=== PATIENT | male | born 1950 | race Caucasian/White ===

== ENCOUNTER 2022-10-12 14:36 | Outpatient (OUT) | payer MEDICARE, SELFPAY ==
[2022-10-06 09:31] LABS: Hemoglobin 14.2 g/dL (14.0-18.0)
[2022-10-06 09:38] LABS: HCO3 ABG 30.1 mmol/L (22.0-26.0); PO2 ABG 65.4 mmHg (80.0-100.0); pH ABG 7.396 (7.350-7.450)
[2022-10-06 09:39] LABS: Allen Test POSITIVE (POSITIVE); Base Excess ABG 5.2 mmol/L (-2.0-2.0); O2 Mode NC; Oxygen Saturation ABG 94.1 %
[2022-10-06 09:40] LABS: Liters per Minute 1; Puncture Site RR
[2022-10-06 11:13] VITALS: PULSE 86; O2SAT 94
[2022-10-06] MEDS: ALBUTEROL SULFATE 2.5 MG/3 ML VIAL NEB IH (11:13)
--- NOTE | 2022-10-06 12:00 | RT_ITS ---
[facility] Test Date: 2022-10-06 Pat Name: CALLI LOUIE Department: Room: - Gender: Male News Agent: Adin Sandy RRT : 1950 Requested By: Estiven Can Order Number: [id number] Reading MD: Estiven Can Interpretive Statements Pulmonary function testing was completed according to ATS criteria. Findings were not considered accurate and reproducible, including DLCO and FVC. Both pre- and post-bronchodilator values utilized for spirometry. No prior studies available for comparison. Spirometry (based on pre-bronchodilator values): -FEV1/FVC: Reduced @ 31% -FEV1: Very severely reduced @ 24% -FVC: Reduced @ 57% -There is no significant bronchodilator response. Lung volumes by plethysmography: -RV: Increased @ 313%, improved to 212% post-bronchodilator -TLC: Increased @ 143%, improved to 106% post-bronchodilator Diffusion capacity: -DLCO: Very severe reduction @ 36% when corrected for Hb 14.2g/dL Flow-volume loop: -Very severe obstructive pattern Impressions: -Very severe obstruction without bronchodilator response. Elevated RV suggests air trapping. Very severe diffusion impairment. Though patient did not meet ATS criteria, the overall testing would be compatible with very severe COPD/emphysema. Clinical correlation required. Electronically Signed On 10-09-2022 13:02:33 EDT by Estiven Can
--- NOTE | 2022-10-06 14:54 | RESP.RT ---
See scanned chart
--- NOTE | 2022-10-09 13:05 | W.PM.PROCNOT ---
Date of procedure: 10/09/22 Procedure: 6-Minute Walk Test Indication: Chronic hypoxic respiratory failure Baseline data: Initial blood pressure: 111/72 Initial heart rate: 87 Initial oxygenation: SpO2 94% on room air. Initial Moe score: 2 MMRC: 3 Procedure: A 6-Minute Walk Test was initiated according to standard protocol. The patient ambulated for a total of 2 minutes with the patient stopping to rest. SpO2 dropped to 87% on room air with a maximum heart rate of 104 and Moe score of 4. This walk test was stopped and after recovery, a second 6-Minute Walk Test was initiated on 1L/min supplemental O2 with SpO2 93%, with heart rate 99. The patient ambulated for 5 minutes and 14 seconds on 1L/min. It was stopped by the patient, voicing dyspnea. The maximum Moe score was 4. Symptoms reported: dyspnea. During recovery, blood pressure was 123/81 with a heart rate of 109. SpO2 was 96% on 1, with Moe score 2. Total number of stops: 3 stops reported. 2 during the study due to dyspnea, along with a 3rd prematurely 46 seconds prior to the end of 6 minutes. Total distance walked was 100.6m, which was 35% of predicted walk distance. Impressions: Desaturations with ambulation which recovered on 1L/min O2. Reduced walk distance. Easy fatigability, requiring frequent stops. Recommendations: 1L/min supplemental O2 with activity/ambulation. Clinical correlation required.
== END 2022-10-12 14:37 | disposition home or self-care (01) ==
LOC: CARD 14:37
PROVIDERS: PCP Family Medicine; Visit Provider Internal Medicine
DX: J96.12 Chronic respiratory failure with hypercapnia (principal); J96.11 Chronic respiratory failure with hypoxia; J43.2 Centrilobular emphysema; R94.2 Abnormal results of pulmonary function studies
CPT/HCPCS: 36415; 36600; 82805; 83050; 85018; 94060; 94618; 94726; 94729

== ENCOUNTER 2023-02-09 10:48 | Outpatient (OUT) | payer MEDICARE, SELFPAY ==
--- NOTE | 2023-02-09 10:58 | CT_ITS ---
[address] [address] Patient Name: CALLI LOUIE MRN: [id number] date: 1950 Sex: M Assigned Patient Location: CT Current Patient Location: Accession/Order Number: [id number] Exam Date: 02/09/2023 11:08 Report Date: 02/12/2023 07:51 At the request of: MANSOOR BLACKBURN Procedure: CT chest wo con EXAMINATION: CT chest wo con HISTORY: Abnormal CT Scan Of Lung R91.8 ; follow-up left lower lobe 1.3 cm nodule; chronic shortness of breath COMPARISON: CT chest 11/17/2022, CTA chest 06/12/2022 TECHNIQUE: Multi-planar CT images were obtained without and/or with IV contrast as indicated by examination type. Axial, Coronal, and Sagittal images. Dose reduction techniques were achieved by using automated exposure control and/or adjustment of mA and/or kV according to patient size and/or use of iterative reconstruction technique. FINDINGS: LUNGS: New small patchy infiltrate within posterior lateral right lung base. Interval increase in size of a geographic shaped opacity within left posterior costophrenic angle and change in configuration of several adjacent irregular opacities and resolution of a few smaller ones. PLEURA: No mass, effusion, or pneumothorax. VASCULATURE: No abnormality. JD: No mass or adenopathy. MEDIASTINUM: No mass or adenopathy. CARDIAC: No enlargement, pericardial thickening, or significant calcification. AORTA: No aneurysm or dissection. CHEST WALL: No mass or axillary adenopathy. BONES: Multilevel degenerative disc disease. No bone lesion or fracture. LIMITED ABDOMEN: No suspicious findings Limited images of the upper abdomen. OTHER: Negative. CT/CT chest wo con IMPRESSION: 1. Interval change in configuration of left lower lobe nodules, with increase in size of the largest opacity, some new opacities, and resolution of some smaller opacities. 2. Interval development of small infiltrate within lateral right lung base. 3. The changing appearance within the lung bases is nonspecific but favors infectious etiology over neoplasm. Follow-up CT chest without contrast in 1-2 months following treatment is recommended to document clearing. Alternatively, PET imaging could be performed to exclude malignancy. Electronically authenticated by: ERIK CARRION Date: 02/12/2023 07:51
== END 2023-02-09 10:49 | disposition home or self-care (01) ==
LOC: CT 10:49
PROVIDERS: PCP Family Medicine; Visit Provider Internal Medicine
DX: R91.8 Other nonspecific abnormal finding of lung field (principal)
CPT/HCPCS: 71250

== ENCOUNTER 2023-02-23 14:46 | Outpatient (OUT) | payer MEDICARE, SELFPAY ==
--- NOTE | 2023-02-23 14:52 | PE_ITS ---
The [address] [address] Patient Name: CALLI LOUIE MRN: [id number] date: 1950 Sex: M Assigned Patient Location: PETCT Current Patient Location: PETCT Accession/Order Number: [id number] Exam Date: 02/23/2023 15:55 Report Date: 02/25/2023 16:46 At the request of: MANSOOR BLACKBURN Procedure: PET skull to mid thigh PET/CT: HISTORY: Lung nodules. COMPARISON: CT chest 02/09/2023, 11/17/2022, 06/12/2022. TECHNIQUE: The patient was injected with 11.76 mCi of F-18 fluorodeoxyglucose (FDG), and an emission scan was performed from the base of the skull to the mid thigh. Noncontrast CT was performed for attenuation correction and anatomic localization. The blood glucose level was 118 mg/dl. The uptake time was 49 minutes. The SUVmax of the mediastinum is 2.3. FINDINGS: HEAD AND NECK: There is a physiologic distribution of activity, with no hypermetabolic foci. CHEST: Previously noted 2.7 cm opacity at the left lung base posteriorly shows minimal tracer activity with SUV max 1.7. Adjacent areas of consolidation are also noted and appear non tracer avid and stable. There is no hypermetabolic mediastinal or hilar adenopathy. ABDOMEN AND PELVIS: There is a physiologic distribution of activity within the liver, spleen, adrenal glands, urinary tract and bowel, with no hypermetabolic foci. MUSCULOSKELETAL SYSTEM: There is a physiologic distribution of activity within the bone marrow, with no hypermetabolic foci. ADDITIONAL CT FINDINGS: There is moderate atherosclerotic calcification of the thoracoabdominal aorta, iliac and femoral arteries. There is mild to moderate emphysema. There are multiple diverticula in the sigmoid colon with no acute diverticulitis. The prostate gland is enlarged at 5 x 4.3 cm. There are moderate to severe multilevel degenerative changes of the spine. PET/PET skull to mid thigh IMPRESSION: 1. Irregular opacity in the posterior left lung base shows only mild tracer activity . There are adjacent stable non tracer avid foci of consolidation. This is likely benign in nature such as due to resolving pneumonia, atelectasis and/or scarring. Consider follow-up chest CT in [address] findings as described above. Electronically authenticated by: ERIK RESTREPO Date: 02/25/2023 16:46
== END 2023-02-23 14:47 | disposition home or self-care (01) ==
LOC: PETCT 14:46
PROVIDERS: PCP Family Medicine; Visit Provider Internal Medicine
DX: R91.8 Other nonspecific abnormal finding of lung field (principal)
CPT/HCPCS: 78815; A9552

== ENCOUNTER 2023-06-08 10:05 | Outpatient (OUT) | payer MEDICARE, SELFPAY ==
--- OUTSIDE RECORDS SUMMARY | 2023-06-08 10:18 | XMS_ITS | CCD ---
Author Organization [facility] Care Team Providers Care Care Manager Name Role Phone DR EBER LIM Primary Care Unavailable ADARSH JUNIOR Admitting Unavailable ADARSH JUNIOR Attending Unavailable MURALI, DR ERIK Price Consulting Unavailable ADARSH JUNIOR Consulting Unavailable CARINA, DR IQBAL Primary Care Unavailable LALIT ., DR PAYNE Admitting Unavailable LALIT ., DR PAYNE Attending Unavailable LALIT ., DR PAYNE Consulting Unavailable ALLAECK, DR ALEX Gann Consulting Unavailabl e MURALI, DR ERIK Price Consulting Unavailable SAM ., MAN[place]OR Consulting Unavailable CUONG YOST Consulting Unavailable SHAIKH Aurea ESCOBAR Consulting Unavailable MARCO HO Consulting Unavailable Eber Lim Unavailable DO JANEL NEVILLE Attending UnavailDr. Eber Felder Primary Care Unavaila ble DO JANEL NEVILLE Attending Unavailab Dr. Eber King Primary Care Unavaila ble Problems Problem Classification Problem Date Documented Da te Episodic/Chronic Anxiety disorders (1 source) Generalized anxiety disorder; Translations: [GENERALIZED ANXIETY DISORDER] Onset: 06-29-2022 Chronic Chronic obstructive pulmonary disease and bronchiectasis (8 sources) Centrilobular emphysema; Translations: [Pulmonary emphysema] Onset: 06-29-2022 Chronic Coronary atherosclerosis and other heart disease (1 source) Atherosclerotic heart disease of [place] coronary artery without angina pectoris; Translations: [Athscl heart disease of [place] coronary artery w/o ang pctrs] Onset: 11-17-2022 Chronic Essential hypertension (1 source) Essential (primary) hypertension; Translations: [ESSENTIAL PRIMARY HYPERTENSION] Onset: 06-29-2022 Chronic Headache; including migraine (1 source) Headache; including migraine; Translations: [HEADACHE UNSPECIFIED] Onset: 06-29-2022 Nonspecific chest pain (4 sources) Chest pain, unspecified; Translations: [Other chest pain] Onset: 07-10-2022 Episodic Other aftercare (1 source) Other alf (current) drug therapy; Translations: [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] Onset: 07-11-2022 Episodic Other gastrointestinal disorders (1 source) Constipation, unspecified; Translations: [CONSTIPATION UNSPECIFIED] Onset: 06-29-2022 Episodic Other lower respiratory disease (1 source) Other nonspecific abnormal finding of lung field; Translations: [Other nonspecific abnormal finding of lung field] Onset: 11-17-2022 Episodic Other nervous system disorders (1 source) Anesthesia of skin; Translations: [ANESTHESIA OF SKIN] Onset: 06-29-2022 Episodic Other screening for suspected conditions (not mental disorders or infectious disease) (1 source) Other specified abnormal findings of blood chemistry; Translations: [OTH SPEC ABNORMAL FINDINGS BLD CHEM] Onset: 06-29-2022 Episodic Other upper respiratory disease (1 source) Chronic rhinitis; Translations: [CHRONIC RHINITIS] Onset: 06-29-2022 Chronic Pulmonary heart disease (1 source) Pulmonary hypertension, unspecified; Translations: [PULMONARY HYPERTENSION UNSPECIFIED] Onset: 06-29-2022 Chronic Residual codes; unclassified (1 source) Insomnia, unspecified; Translations: [INSOMNIA UNSPECIFIED] Onset: 06-29-2022 Episodic Respiratory failure; insufficiency; arrest (adult) (1 source) Chronic respiratory failure with hypercapnia; Translations: [CHRONIC RESP FAIL W/HYPERCAPNIA] Onset: 06-29-2022 Chronic Respiratory failure; insufficiency; arrest (adult) (3 sources) Acute respiratory failure with hypoxia; Translations: [ACUTE RESPIRATORY FAIL W/HYPOXIA] Onset: 06-12-2022 Episodic Substance-related disorders (1 source) Nicotine dependence, cigarettes, uncomplicated; Translations: [NICOTINE DEPEND CIGARETTES UNCOMP] Onset: 07-11-2022 Chronic Unclassified (1 source) OTHER ACIDOSIS; Translations: [OTHER ACIDOSIS] Onset: 06-29-2022 Unclassified (1 source) CONTACT W/AND (SUSP) EXPOS COVID-19; Translations: [CONTACT W/AND (SUSP) EXPOS COVID-19] Onset: 06-29-2022 Unclassified (1 source) Other specified disease of esophagus; Translations: [Other specified disease of esophagus] Onset: 11-17-2022 Unclassified (1 source) Gastro-esophageal reflux dis with esophagitis, without bleed; Translations: [Gastro-esophageal reflux dis with esophagitis, without bleed] Onset: 11-17-2022 Viral infection (1 source) Zoster without complications; Translations: [ZOSTER WITHOUT COMPLICATIONS] Onset: 06-29-2022 Episodic Results Test Name Value Interpretation Reference Range Facility ARTERIAL BLOOD GAS,CO-OXon 0 11-17-2022 BASE EXCESS-BLOOD 4.2 mmol/L High -2.0 - 3.0 [facility] Comment on above: Performed By: #### A BGC2 #### [facility] [address] [place] [address] BICARB, CALCULATED 29.2 mmol/L High 22.0 - 26.0 [facility] Comment on above: Performed By: #### A BGC2 #### [facility] [address] [place] [address] CO HGB 1.7 % Abnormal [facility] Comment on above: Result Comment: REF VALUES NONSMOKERS 0.5-1.5% SMOKERS 0.5-10.0% Performed By: #### A BGC2 #### [facility] [address] [place] [address] DEOXY HGB 2.7 % Normal 0.0 - 5.0 [facility] Comment on above: Performed By: #### A BGC2 #### [facility] [address] [place] [address] Hemoglobin (Bld) [Mass/Vol] 14.3 g/dL Normal 13.5 - 17.5 [facility] Comment on above: Performed By: #### A BGC2 #### [facility] [address] [place] [address] MET HGB 1.0 % Normal 0.0 - 1.5 [facility] Comment on above: Performed By: #### A BGC2 #### [facility] [address] [place] [address] OXY HGB 94.6 % Normal 94.0 - 98.0 [facility] Comment on above: Performed By: #### A BGC2 #### [facility] [address] [place] [address] Oxygen (Bld) [Partial pressure] 74 mm[Hg] Low 85 - 95 [facility] Comment on above: Performed By: #### A BGC2 #### [facility] [address] [place] [address] PATIENT TEMPERATURE 37.0 degrees C Normal [facility] Comment on above: Result Comment: NOTE : PATIENT RESULTS ARE NOT CORRECTED FOR TEMPERATURE. Performed By: #### A BGC2 #### [facility] [address] [place] [address] PCO2 44 mmHg High 38 - 42 [facility] Comment on above: Performed By: #### A BGC2 #### [facility] [address] [place] [address] pH (Bld) 7.43 [pH] High 7.38 - 7.42 [facility] Comment on above: Performed By: #### A BGC2 #### [facility] [address] [place] [address] SO2 97 % Normal 94 - 100 [facility] Comment on above: Performed By: #### A BGC2 #### [facility] [address] [place] [address] CT Chest without for Brown Br onc Planningon 11-17-2022 CT Chest without for Brown Bronc Planning Normal [email or web address] Work Phone: Laboratory - Chemistry and C hemistry - challengeon 11-17-2022 Base excess Calc (Bld) [Moles/Vol] 4.2 mmol/L above high threshold -2.0 - 3.0 [facility] Work Phone: Carboxyhemoglobin (BldA) [Mass fraction] 1.7 % Abnormal [facility] Work Phone: Comment on above: REF VALUESNONSMOKERS 0.5-1.5%SMOKERS 0.5-10.0% CO2 (Bld) [Partial pressure] 44 mm[Hg] above high threshold 38 - 42 [facility] [facility] Work Phone: HCO3 (Bld) [Moles/Vol] 29.2 mmol/L above high threshold See Below [facility] Work Phone: Comment on above: Reference Range: 22. 0 - 26.0 Methemoglobin (BldA) [Mass fraction] 1.0 % 0.0 - 1.5 [facility] Work Phone: Oxygen (Bld) [Partial pressure] 74 mm[Hg] below low threshold 85 - 95 [facility] Work Phone: Oxyhemoglobin (BldA) [Mass fraction] 94.6 % See Below [facility] Work Phone: Comment on above: Reference Range: 94. 0 - 98.0 pH (Bld) 7.43 [pH] above high threshold See Below [facility] Work Phone: Comment on above: Reference Range: 7.3 8 - 7.42 Laboratory - Hematology and Cell countson 11-17-2022 Deoxyhemoglobin (BldA) [Mass fraction] 2.7 % 0.0 - 5.0 [email or web address] Work Phone: Hemoglobin (Bld) [Mass/Vol] 14.3 g/dL See Below [facility] Work Phone: Comment on above: Reference Range: 13. 5 - 17.[address] CHEST without FOR BROWN BRONC PLANNINGon 11-17-2022 CT CHEST without FOR BROWN BRONC PLANNING Patient Name: CALLI LOUIE STUDY: TH CT CHEST WITHOUT FOR BROWN BRONC PLANNING; 11/17/2022 1:08 pm INDICATION: BLVR J43.9: COPD (chronic obstructive pulmonary disease) with emphysema. COMPARISON: None. ACCESSION NUMBER(S): [id number] ORDERING CLINICIAN: JANEL NEVILLE TECHNIQUE: Helical data acquisition of the chest was obtained without IV contrast material. Images were reformatted in axial, coronal, and sagittal planes. FINDINGS: LUNGS AND AIRWAYS: Secretions within the left posterolateral aspect of the trachea. The trachea and central airways are otherwise patent. No endobronchial lesion. Mild bronchial wall thickening throughout the lungs, which may represent a component of chronic bronchitis, in setting of smoking history. Severe apical predominant emphysema. Multiple areas of nodularity to include tree-in-bud nodularity within the left lower lobe. The largest nodule is noted to be along the posterior left diaphragmatic pleura and measures 1.3 cm (series 3, image 256). MEDIASTINUM AND JD, LOWER NECK AND AXILLA: The visualized thyroid gland is within normal limits. No evidence of thoracic lymphadenopathy by CT criteria. Circumferential wall thickening of the distal esophagus. HEART AND VESSELS: Thoracic aorta is normal in course and caliber. Mild calcifications of the descending aorta and aortic arch. Main pulmonary artery and its branches are normal in caliber. Mild coronary artery calcifications are seen. The study is not optimized for evaluation of coronary arteries. The cardiac chambers are not enlarged. No evidence of pericardial effusion. UPPER ABDOMEN: The visualized subdiaphragmatic structures demonstrate no remarkable findings. CHEST WALL AND OSSEOUS STRUCTURES: There are no suspicious osseous lesions. Multilevel degenerative changes are present. IMPRESSION: 1. Areas of tree-in-bud nodularity as well as larger, clustered pleural-based nodules within the left lower lobe. Consider sequelae of aspiration or infection, however neoplastic process is not excluded. Consider PET/CT or follow-up chest CT in 3 months to re-evaluate these findings. 2. Severe diffuse emphysema. 3. Circumferential wall thickening of the distal esophagus. Correlate with clinical findings of esophagitis/gastroeso phageal reflux. 4. Atherosclerosis to include mild coronary artery calcifications. Please note that, the present study is not tailored for evaluation of coronary arteries. Critical Finding: New/enlarging lung nodule suspicious for cancer. Notification was initiated on 11/17/2022 at 4:15 pm by Eyad Au. (-YCF-) MACRO: None Electronically signed by: KRISTOPHER ESPINO MD Normal [facility] CBC AUTO DIFFon 07-10-2022 BASO # 0.0 103/ul Normal 0.0-0.1 [facility] Comment on above: Performed By: #### P OCGLUC #### [facility] [address] [address] [address] Luis Carlos Fletcher Basophils/100 WBC (Bld) 0.8 % Normal 0.2-2.0 [facility] Comment on above: Performed By: #### P OCGLUC #### [facility] [address] [address] [address] Luis Carlos Fletcher EO # 0.2 103/ul Normal 0.0-0.7 [facility] Comment on above: Performed By: #### P OCGLUC #### [facility] [address] [address] [address] Luis Carlos Fletcher Eosinophils/100 WBC (Bld) 3.4 % Normal 0.9-7.0 [facility] Comment on above: Performed By: #### P OCGLUC #### [facility] [address] [address] [address] Luis Carlos Fletcher Erythrocyte distribution width (RBC) [Ratio] 13.2 % Normal 11.0-15.0 [facility] Comment on above: Performed By: #### P OCGLUC #### [facility] [address] [address] [address] Luis Carlos Fletcher Hematocrit (Bld) [Volume fraction] 45.6 % Normal 42.0-54.0 [facility] Comment on above: Performed By: #### P OCGLUC #### [facility] [address] [address] [address] Luis Carlos Fletcher Hemoglobin (Bld) [Mass/Vol] 14.9 g/dL Normal 14.0-18.0 [facility] Comment on above: Performed By: #### P OCGLUC #### [facility] [address] [address] [address] Luis Carlos Fletcher IG # 0.06 10e3/ul Critically high 0.00-0.[address] [facility] Comment on above: Performed By: #### P OCGLUC #### [facility] [address] [address] [address] Luis Carlos Fletcher IG % 1.2 % Critically high 0.0-0.5 [facility] Comment on above: Performed By: #### P OCGLUC #### [facility] [address] [address] [address] Luis Carlos Fletcher LYMPH # 1.3 103/ul Normal 1.2-3.8 [facility] Comment on above: Performed By: #### P OCGLUC #### [facility] [address] [address] [address] Luis Carlos Fletcher Lymphocytes/100 WBC (Bld) 24.9 % Normal 20.5-60.0 [facility] Comment on above: Performed By: #### P OCGLUC #### [facility] [address] [address] [address] Luis Carlos Fletcher MANUAL DIFF REQ NO Normal [facility] Comment on above: Performed By: #### P OCGLUC #### [facility] [address] [address] [address] Luis Carlos Fletcher MCH (RBC) [Entitic mass] 30.2 pg Normal 25.9-34.0 [facility] Comment on above: Performed By: #### P OCGLUC #### [facility] [address] [place] [address] Dr. Luis Carlos Fletcher MCHC (RBC) [Mass/Vol] 32.7 g/dL Normal 29.9-35.2 [facility] Comment on above: Performed By: #### P OCGLUC #### [facility] [address] [place] [address] Dr. Luis Carlos Fletcher MCV (RBC) [Entitic vol] 92.5 fL Normal 80.0-94.0 [facility] Comment on above: Performed By: #### P OCGLUC #### [facility] [address] [place] [address] Dr. Luis Carlos Fletcher MONO # 0.5 103/ul Normal 0.3-0.8 [facility] Comment on above: Performed By: #### P OCGLUC #### [facility] [address] [address] [address] Luis Carlos Fletcher Monocytes/100 WBC (Bld) 9.2 % Normal 1.7-12.0 [facility] Comment on above: Performed By: #### P OCGLUC #### [facility] [address] [place] [address] Dr. Luis Carlos Fletcher NEUT # 3.0 103/ul Normal 1.4-6.5 [facility] Comment on above: Performed By: #### P OCGLUC #### [facility] [address] [address] [address] Luis Carlos Fletcher Neutrophils/100 WBC (Bld) 60.5 % Normal 43.0-75.0 [facility] Comment on above: Performed By: #### P OCGLUC #### [facility] [address] [address] [address] Luis Carlos Fletcher Platelet mean volume (Bld) [Entitic vol] 9.6 fL Normal 9.5-13.5 [facility] Comment on above: Performed By: #### P OCGLUC #### [facility] [address] [address] [address] Luis Carlos Fletcher PLT 153 103/ul Normal 150-450 [facility] Comment on above: Performed By: #### P OCGLUC #### [facility] [address] [address] [address] Luis Carlos Fletcher RBC 4.93 106/ul Normal 4.70-6.10 [facility] Comment on above: Performed By: #### P OCGLUC #### [facility] [address] [address] [address] Luis Carlos Fletcher WBC 5.0 103/ul Normal 4.0-11.0 [facility] Comment on above: Performed By: #### P OCGLUC #### [facility] [address] [address] [address] Luis Carlos Fletcher PROF CHEM 8 (BAS METB)on Anion gap [Moles/Vol] 6.1 mmol/L Normal [facility] Comment on above: Performed By: #### H STROPN #### [facility] [address] [address] [address] Luis Carlos Fletcher Calcium [Mass/Vol] 8.9 mg/dL Normal 8.5-10.1 [facility] Comment on above: Performed By: #### H STROPN #### [facility] [address] [address] [address] Luis Carlos Fletcher Chloride [Moles/Vol] 100 mmol/L Normal 98-107 [facility] Comment on above: Performed By: #### H STROPN #### [facility] [address] [address] [address] Luis Carlos Fletcher CO2 [Moles/Vol] 35.6 mmol/L Critically high 21.0-32.0 [facility] Comment on above: Performed By: #### H STROPN #### [facility] [address] [address] [address] Luis Carlos Fletcher Creatinine [Mass/Vol] 0.71 mg/dL Normal 0.70-1.30 [facility] Comment on above: Performed By: #### H STROPN #### [facility] [address] [address] [address] Luis Carlos Fletcher EGFR-AF MAURITIAN >60 Normal >=60 [facility] Comment on above: Performed By: #### H STROPN #### [facility] [address] [address] [address] Luis Carlos Fletcher EGFR-NON AF MAURITIAN >60 Normal >=60 [facility] Comment on above: Performed By: #### H STROPN #### [facility] [address] [address] [address] Luis Carlos Fletcher Glucose [Mass/Vol] 63 mg/dL Critically low 74-106 [facility] Comment on above: Performed By: #### H STROPN #### [facility] [address] [address] [address] Luis Carlos Fletcher Potassium [Moles/Vol] 4.7 mmol/L Normal 3.5-5.1 [facility] Comment on above: Performed By: #### H STROPN #### [facility] [address] [address] [address] Luis Carlos Fletcher Sodium [Moles/Vol] 137 mmol/L Normal 136-145 [facility] Comment on above: Performed By: #### H STROPN #### [facility] [address] [address] [address] Luis Carlos Fletcher Urea nitrogen [Mass/Vol] 11.0 mg/dL Normal 7.0-18.0 [facility] Comment on above: Performed By: #### H STROPN #### [facility] [address] [address] [address] Luis Carlos Fletcher Urea nitrogen/Creatinine [Mass ratio] 15.5 mg/mg Normal [facility] Comment on above: Performed By: #### H STROPN #### [facility] [address] [address] [address] Luis Carlos Fletcher TROPONIN, HIGH SENSITIVITYon 07-10-2022 HSTROP 6.1 pg/mL Normal 4.0-76.1 [facility] Comment on above: Result Comment: CUT- OFF POINTS HAVE BEEN ESTABLISHED BASED ON THE FOURTH UNIVERSAL DEFINITIONS OF MYOCARDIAL INFARCTION. THE UPPER REFERENCE LIMIT (URL) OF TROPONIN, DEFINED THE 99TH PERCENTILE OF cTnI DISTRIBUTION IN A REFERENCE POPULATION, HAS BEEN CONFIRMED THE DECISION THRESHOLD FOR OR DIAGNOSIS. Performed By: #### H STROPN #### [facility] [address] [place] [address] Dr. Luis Carlos Fletcher HSTROP 6.1 pg/mL Normal 4.0-76.1 [facility] Comment on above: Result Comment: CUT- OFF POINTS HAVE BEEN ESTABLISHED BASED ON THE FOURTH UNIVERSAL DEFINITIONS OF MYOCARDIAL INFARCTION. THE UPPER REFERENCE LIMIT (URL) OF TROPONIN, DEFINED THE 99TH PERCENTILE OF cTnI DISTRIBUTION IN A REFERENCE POPULATION, HAS BEEN CONFIRMED THE DECISION THRESHOLD FOR OR DIAGNOSIS. Performed By: #### H STROPN #### [facility] [address] [place] [address] Dr. Luis Carlos Fletcher XR CHEST 1 Von 07-10-2022 XR CHEST 1 V EXAMINATION: XR CHES T 1 V HISTORY: CHEST PAIN, UNSPECIFIED COMPARISON: XR chest 06/15/2022 FINDINGS: LUNGS: No significant pulmonary parenchymal abnormalities. VASCULATURE: No increased pulmonary vasculature. PLEURA: No pneumothorax, effusion, or pleural thickening. CARDIAC: No cardiomegaly or cardiac silhouette abnormality. MEDIASTINUM: No visible mass or adenopathy. BONES: No fracture or visible bone lesion. OTHER: Negative. IMPRESSION: 1. No acute cardiopulmonary process. Stable mild chronic interstitial changes. Electronically authenticated by: ERIK CARRION Date: 2022-07-10 12:39 Normal [facility] CBC AUTO DIFFon 06-19-2022 BASO # 0.0 103/ul Normal 0.0-0.1 [facility] Comment on above: Performed By: #### P OCGLUC #### [facility] [address] [place] [address] Dr. Luis Carlos Fletcher Basophils/100 WBC (Bld) 0.2 % Normal 0.2-2.0 [facility] Comment on above: Performed By: #### P OCGLUC #### [facility] [address] [place] [address] Dr. Luis Carlos Fletcher EO # 0.0 103/ul Normal 0.0-0.7 [facility] Comment on above: Performed By: #### P OCGLUC #### [facility] [address] [place] [address] Dr. Luis Carlos Fletcher Eosinophils/100 WBC (Bld) 0.0 % Critically low 0.9-7.0 [facility] Comment on above: Performed By: #### P OCGLUC #### [facility] [address] [place] [address] Dr. Luis Carlos Fletcher Erythrocyte distribution width (RBC) [Ratio] 12.9 % Normal 11.0-15.0 [facility] Comment on above: Performed By: #### P OCGLUC #### [facility] [address] [place] [address] Dr. Luis Carlos Fletcher Hematocrit (Bld) [Volume fraction] 45.1 % Normal 42.0-54.0 [facility] Comment on above: Performed By: #### P OCGLUC #### [facility] [address] [place] [address] Dr. Luis Carlos Fletcher Hemoglobin (Bld) [Mass/Vol] 14.7 g/dL Normal 14.0-18.0 [facility] Comment on above: Performed By: #### P OCGLUC #### [facility] [address] [place] [address] Dr. Luis Carlos Fletcher IG # 0.08 10e3/ul Critically high 0.00-0.[address] [facility] Comment on above: Performed By: #### P OCGLUC #### [facility] [address] [place] [address] Dr. Luis Carlos Fletcher IG % 0.8 % Critically high 0.0-0.5 [facility] Comment on above: Performed By: #### P OCGLUC #### [facility] [address] [place] [address] Dr. Luis Carlos Fletcher LYMPH # 0.4 103/ul Critically low 1.2-3.[address] [facility] Comment on above: Performed By: #### P OCGLUC #### [facility] [address] [place] [address] Dr. Luis Carlos Fletcher Lymphocytes/100 WBC (Bld) 4.0 % Critically low 20.5-60.0 [facility] Comment on above: Performed By: #### P OCGLUC #### [facility] [address] [place] [address] Dr. Luis Carlos Fletcher MANUAL DIFF REQ NO Normal [facility] Comment on above: Performed By: #### P OCGLUC #### [facility] [address] [place] [address] Dr. Luis Carlos Fletcher MCH (RBC) [Entitic mass] 30.3 pg Normal 25.9-34.0 [facility] Comment on above: Performed By: #### P OCGLUC #### [facility] [address] [place] [address] Dr. Luis Carlos Fletcher MCHC (RBC) [Mass/Vol] 32.6 g/dL Normal 29.9-35.2 [facility] Comment on above: Performed By: #### P OCGLUC #### [facility] [address] [place] [address] Dr. Luis Carlos Fletcher MCV (RBC) [Entitic vol] 93.0 fL Normal 80.0-94.0 [facility] Comment on above: Performed By: #### P OCGLUC #### [facility] [facility] [address] [place] [address] Dr. Luis Carlos Fletcher MONO # 0.3 103/ul Normal 0.3-0.8 [facility] Comment on above: Performed By: #### P OCGLUC #### [facility] [address] [place] [address] Dr. Luis Carlos Fletcher Monocytes/100 WBC (Bld) 3.4 % Normal 1.7-12.0 [facility] Comment on above: Performed By: #### P OCGLUC #### [facility] [address] [address] [address] Luis Carlos Fletcher NEUT # 9.2 103/ul Critically high 1.4-6.5 [facility] Comment on above: Performed By: #### P OCGLUC #### [facility] [address] [address] [address] Luis Carlos Fletcher Neutrophils/100 WBC (Bld) 91.6 % Critically high 43.0-75.0 [facility] Comment on above: Performed By: #### P OCGLUC #### [facility] [address] [place] [address] Dr. Luis Carlos Fletcher Platelet mean volume (Bld) [Entitic vol] 9.9 fL Normal 9.5-13.5 [facility] Comment on above: Performed By: #### P OCGLUC #### [facility] [address] [place] [address] Dr. Luis Carlos Fletcher PLT 220 103/ul Normal 150-450 [facility] Comment on above: Performed By: #### P OCGLUC #### [facility] [address] [place] [address] Dr. Luis Carlos Fletcher RBC 4.85 106/ul Normal 4.70-6.10 [facility] Comment on above: Performed By: #### P OCGLUC #### [facility] [address] [place] [address] Dr. Luis Carlos Fletcher WBC 10.0 103/ul Normal 4.0-11.0 [facility] Comment on above: Performed By: #### P OCGLUC #### [facility] [address] [place] [address] Dr. Luis Carlos Fletcher PROF CHEM 8 (BAS METB)on Anion gap [Moles/Vol] 2.4 mmol/L Normal [facility] Comment on above: Performed By: #### P OCGLUC #### [facility] [address] [place] [address] Dr. Luis Carlos Fletcher Calcium [Mass/Vol] 8.2 mg/dL Critically low 8.5-10.1 [facility] Comment on above: Performed By: #### P OCGLUC #### [facility] [address] [address] [address] Luis Carlos Fletcher Chloride [Moles/Vol] 104 mmol/L Normal 98-107 [facility] Comment on above: Performed By: #### P OCGLUC #### [facility] [address] [address] [address] Luis Carlos Fletcher CO2 [Moles/Vol] 35.4 mmol/L Critically high 21.0-32.0 [facility] Comment on above: Performed By: #### P OCGLUC #### [facility] [address] [place] [address] Dr. Luis Carlos Fletcher Creatinine [Mass/Vol] 0.57 mg/dL Critically low 0.70-1.30 [facility] Comment on above: Performed By: #### P OCGLUC #### [facility] [address] [place] [address] Dr. Luis Carlos Fletcher EGFR-AF MAURITIAN >60 Normal >=60 [facility] Comment on above: Performed By: #### P OCGLUC #### [facility] [address] [place] [address] Dr. Luis Carlos Fletcher EGFR-NON AF MAURITIAN >60 Normal >=60 [facility] Comment on above: Performed By: #### P OCGLUC #### [facility] [address] [place] [address] Dr. Luis Carlos Fletcher Glucose [Mass/Vol] 127 mg/dL Critically high 74-106 [facility] Comment on above: Performed By: #### P OCGLUC #### [facility] [address] [place] [address] Dr. Luis Carlos Fletcher Potassium [Moles/Vol] 4.8 mmol/L Normal 3.5-5.1 [facility] Comment on above: Performed By: #### P OCGLUC #### [facility] [address] [place] [address] Dr. Luis Carlos Fletcher Sodium [Moles/Vol] 137 mmol/L Normal 136-145 [facility] Comment on above: Performed By: #### P OCGLUC #### [facility] [address] [place] [address] Dr. Luis Carlos Fletcher Urea nitrogen [Mass/Vol] 25.0 mg/dL Critically high 7.0-18.0 [facility] Comment on above: Performed By: #### P OCGLUC #### [facility] [address] [place] [address] Dr. Luis Carlos Fletcher Urea nitrogen/Creatinine [Mass ratio] 43.9 mg/mg Normal [facility] Comment on above: Performed By: #### P OCGLUC #### [facility] [address] [place] [address] Dr. Luis Carlos Fletcher CBC AUTO DIFFon 06-18-2022 BASO # 0.0 103/ul Normal 0.0-0.1 [facility] Comment on above: Performed By: #### P OCGLUC #### [facility] [address] [place] [address] Dr. Luis Carlos Fletcher Basophils/100 WBC (Bld) 0.2 % Normal 0.2-2.0 [facility] Comment on above: Performed By: #### P OCGLUC #### [facility] [address] [place] [address] Dr. Luis Carlos Fletcher EO # 0.0 103/ul Normal 0.0-0.7 [facility] Comment on above: Performed By: #### P OCGLUC #### [facility] [address] [place] [address] Dr. Luis Carlos Fletcher Eosinophils/100 WBC (Bld) 0.1 % Critically low 0.9-7.0 [facility] Comment on above: Performed By: #### P OCGLUC #### [facility] [address] [place] [address] Dr. Luis Carlos Fletcher Erythrocyte distribution width (RBC) [Ratio] 13.1 % Normal 11.0-15.0 [facility] Comment on above: Performed By: #### P OCGLUC #### [facility] [address] [place] [address] Dr. Luis Carlos Fletcher Hematocrit (Bld) [Volume fraction] 46.5 % Normal 42.0-54.0 [facility] Comment on above: Performed By: #### P OCGLUC #### [facility] [address] [address] [address] Luis Carlos Fletcher Hemoglobin (Bld) [Mass/Vol] 15.4 g/dL Normal 14.0-18.0 [facility] Comment on above: Performed By: #### P OCGLUC #### [facility] [address] [place] [address] Dr. Luis Carlos Fletcher IG # 0.07 10e3/ul Critically high 0.00-0.[address] [facility] Comment on above: Performed By: #### P OCGLUC #### [facility] [address] [place] [address] Dr. Luis Carlos Fletcher IG % 0.7 % Critically high 0.0-0.5 [facility] Comment on above: Performed By: #### P OCGLUC #### [facility] [address] [place] [address] Dr. Luis Carlos Fletcher LYMPH # 0.6 103/ul Critically low 1.2-3.8 [facility] Comment on above: Performed By: #### P OCGLUC #### [facility] [address] [place] [address] Dr. Luis Carlos Fletcher Lymphocytes/100 WBC (Bld) 6.1 % Critically low 20.5-60.0 [facility] Comment on above: Performed By: #### P OCGLUC #### [facility] [address] [place] [address] Dr. Luis Carlos Fletcher MANUAL DIFF REQ NO Normal [facility] Comment on above: Performed By: #### P OCGLUC #### [facility] [address] [place] [address] Dr. Luis Carlos Fletcher MCH (RBC) [Entitic mass] 30.7 pg Normal 25.9-34.0 [facility] Comment on above: Performed By: #### P OCGLUC #### [facility] [address] [place] [address] Dr. Luis Carlso Fletcher MCHC (RBC) [Mass/Vol] 33.1 g/dL Normal 29.9-35.2 [facility] Comment on above: Performed By: #### P OCGLUC #### [facility] [address] [address] [address] Luis Carlos Fletcher MCV (RBC) [Entitic vol] 92.8 fL Normal 80.0-94.0 [facility] Comment on above: Performed By: #### P OCGLUC #### [facility] [address] [address] [address] Luis Carlos Fletcher MONO # 0.7 103/ul Normal 0.3-0.8 [facility] Comment on above: Performed By: #### P OCGLUC #### [facility] [address] [place] [address] Dr. Luis Carlos Fletcher Monocytes/100 WBC (Bld) 6.9 % Normal 1.7-12.0 [facility] Comment on above: Performed By: #### P OCGLUC #### [facility] [address] [place] [address] Dr. Luis Carlos Fletcher NEUT # 8.7 103/ul Critically high 1.4-6.5 [facility] Comment on above: Performed By: #### P OCGLUC #### [facility] [address] [place] [address] Dr. Luis Carlos Fletcher Neutrophils/100 WBC (Bld) 86.0 % Critically high 43.0-75.0 [facility] Comment on above: Performed By: #### P OCGLUC #### [facility] [address] [place] [address] Dr. Luis Carlos Fletcher Platelet mean volume (Bld) [Entitic vol] 9.9 fL Normal 9.5-13.5 [facility] Comment on above: Performed By: #### P OCGLUC #### [facility] [address] [place] [address] Dr. Luis Carlos Fletcher PLT 236 103/ul Normal 150-450 [facility] Comment on above: Performed By: #### P OCGLUC #### [facility] [address] [place] [address] Dr. Luis Carlos Fletcher RBC 5.01 106/ul Normal 4.70-6.10 [facility] Comment on above: Performed By: #### P OCGLUC #### [facility] [address] [address] [address] Luis Carlos Fletcher WBC 10.2 103/ul Normal 4.0-11.0 [facility] Comment on above: Performed By: #### P OCGLUC #### [facility] [address] [address] [address] Luis Carlos Fletcher POINT OF CARE GLUCOSEon Glucose [Mass/Vol] 141 mg/dL Critically high 74-106 [facility] Comment on above: Performed By: #### P OCGLUC #### [facility] [address] [place] [address] Dr. Luis Carlos Fletcher Glucose [Mass/Vol] 98 mg/dL Normal 74-106 [facility] Comment on above: Performed By: #### P OCGLUC #### [facility] [address] [place] [address] Dr. Luis Carlos Fletcher PROF CHEM 8 (BAS METB)on Anion gap [Moles/Vol] 7.6 mmol/L Normal [facility] Comment on above: Performed By: #### P OCGLUC #### [facility] [address] [address] [address] Luis Carlos Fletcher Calcium [Mass/Vol] 8.5 mg/dL Normal 8.5-10.1 [facility] Comment on above: Performed By: #### P OCGLUC #### [facility] [address] [place] [address] Dr. Luis Carlos Fletcher Chloride [Moles/Vol] 103 mmol/L Normal 98-107 [facility] Comment on above: Performed By: #### P OCGLUC #### [facility] [address] [place] [address] Dr. Luis Carlos Fletcher CO2 [Moles/Vol] 36.0 mmol/L Critically high 21.0-32.0 [facility] Comment on above: Performed By: #### P OCGLUC #### [facility] [address] [address] [address] Luis Carlos Fletcher Creatinine [Mass/Vol] 0.64 mg/dL Critically low 0.70-1.30 [facility] Comment on above: Performed By: #### P OCGLUC #### [facility] [address] [address] [address] Luis Carlos Fletcher EGFR-AF MAURITIAN >60 Normal >=60 [facility] Comment on above: Performed By: #### P OCGLUC #### [facility] [address] [address] [address] Luis Carlos Fletcher EGFR-NON AF MAURITIAN >60 Normal >=60 [facility] Comment on above: Performed By: #### P OCGLUC #### [facility] [address] [address] [address] Luis Carlos Fletcher Glucose [Mass/Vol] 104 mg/dL Normal 74-106 [facility] Comment on above: Performed By: #### P OCGLUC #### [facility] [address] [address] [address] Luis Carlos Fletcher Potassium [Moles/Vol] 4.6 mmol/L Normal 3.5-5.1 [facility] Comment on above: Performed By: #### P OCGLUC #### [facility] [address] [address] [address] Luis Carlos Fletcher Sodium [Moles/Vol] 142 mmol/L Normal 136-145 [facility] Comment on above: Performed By: #### P OCGLUC #### [facility] [address] [address] [address] Luis Carlos Fletcher Urea nitrogen [Mass/Vol] 25.0 mg/dL Critically high 7.0-18.0 [facility] Comment on above: Performed By: #### P OCGLUC #### [facility] [address] [address] [address] Luis Carlos Fletcher Urea nitrogen/Creatinine [Mass ratio] 39.1 mg/mg Normal [facility] Comment on above: Performed By: #### P OCGLUC #### [facility] [address] [address] [address] Luis Carlos Fletcher CBC AUTO DIFFon 06-17-2022 BASO # 0.0 103/ul Normal 0.0-0.1 [facility] Comment on above: Performed By: #### B MP #### [facility] [address] [address] [address] Luis Carlos Fletcher Basophils/100 WBC (Bld) 0.0 % Critically low 0.2-2.0 [facility] Comment on above: Performed By: #### B MP #### [facility] [address] [address] [address] Luis Carlos Fletcher EO # 0.0 103/ul Normal 0.0-0.7 [facility] Comment on above: Performed By: #### B MP #### [facility] [address] [place] [address] Dr. Luis Carlos Fletcher Eosinophils/100 WBC (Bld) 0.4 % Critically low 0.9-7.0 [facility] Comment on above: Performed By: #### B MP #### [facility] [address] [place] [address] Dr. Luis Carlos Fletcher Erythrocyte distribution width (RBC) [Ratio] 13.1 % Normal 11.0-15.0 [facility] Comment on above: Performed By: #### B MP #### [facility] [address] [place] [address] Dr. Luis Carlos Fletcher Hematocrit (Bld) [Volume fraction] 46.0 % Normal 42.0-54.0 [facility] Comment on above: Performed By: #### B MP #### [facility] [address] [place] [address] Dr. Luis Carlos Fletcher Hemoglobin (Bld) [Mass/Vol] 15.3 g/dL Normal 14.0-18.0 [facility] Comment on above: Performed By: #### B MP #### [facility] [address] [place] [address] Dr. Luis Carlos Fletcher IG # 0.05 10e3/ul Critically high 0.00-0.[address] [facility] Comment on above: Performed By: #### B MP #### [facility] [address] [place] [address] Dr. Luis Carlos Fletcher IG % 0.7 % Critically high 0.0-0.5 [facility] Comment on above: Performed By: #### B MP #### [facility] [address] [place] [address] Dr. LuisC arlos Fletcher LYMPH # 0.5 103/ul Critically low 1.2-3.8 [facility] Comment on above: Performed By: #### B MP #### [facility] [address] [place] [address] Dr. Luis Carlos Fletcher Lymphocytes/100 WBC (Bld) 7.1 % Critically low 20.5-60.0 [facility] Comment on above: Performed By: #### B MP #### [facility] [address] [place] [address] Dr. Luis Carlos Fletcher MANUAL DIFF REQ NO Normal [facility] Comment on above: Performed By: #### B MP #### [facility] [address] [place] [address] Dr. Luis Carlos Fletcher MCH (RBC) [Entitic mass] 30.4 pg Normal 25.9-34.0 [facility] Comment on above: Performed By: #### B MP #### [facility] [address] [place] [address] Dr. Luis Carlos Fletcher MCHC (RBC) [Mass/Vol] 33.3 g/dL Normal 29.9-35.2 [facility] Comment on above: Performed By: #### B MP #### [facility] [address] [place] [address] Dr. Luis Carlos Fletcher MCV (RBC) [Entitic vol] 91.5 fL Normal 80.0-94.0 [facility] Comment on above: Performed By: #### B MP #### [facility] [address] [place] [address] Dr. Luis Carlos Fletcher MONO # 0.3 103/ul Normal 0.3-0.8 [facility] Comment on above: Performed By: #### B MP #### [facility] [address] [place] [address] Dr. Luis Carlos Fletcher Monocytes/100 WBC (Bld) 4.0 % Normal 1.7-12.0 [facility] Comment on above: Performed By: #### B MP #### [facility] [address] [place] [address] Dr. Luis Carlos Fletcher NEUT # 6.6 103/ul Critically high 1.4-6.5 [facility] Comment on above: Performed By: #### B MP #### [facility] [address] [place] [address] Dr. Luis Carlos Fletcher Neutrophils/100 WBC (Bld) 87.8 % Critically high 43.0-75.0 [facility] Comment on above: Performed By: #### B MP #### [facility] [address] [place] [address] Dr. Luis Carlos Fletcher Platelet mean volume (Bld) [Entitic vol] 9.8 fL Normal 9.5-13.5 [facility] Comment on above: Performed By: #### B MP #### [facility] [address] [place] [address] Dr. Luis Carlos Fletcher PLT 200 103/ul Normal 150-450 [facility] Comment on above: Performed By: #### B MP #### [facility] [address] [place] [address] Dr. Luis Carlos Fletcher RBC 5.03 106/ul Normal 4.70-6.10 [facility] Comment on above: Performed By: #### B MP #### [facility] [address] [place] [address] Dr. Luis Carlos Fletcher WBC 7.5 103/ul Normal 4.0-11.0 [facility] Comment on above: Performed By: #### B MP #### [facility] [address] [place] [address] Dr. Luis Carlos Fletcher POINT OF CARE GLUCOSEon 04-0 Glucose [Mass/Vol] 124 mg/dL Critically high 74-106 [facility] Comment on above: Performed By: #### B MP #### [facility] [address] [place] [address] Dr. Luis Carlos Fletcher Glucose [Mass/Vol] 102 mg/dL Normal 74-106 [facility] Comment on above: Performed By: #### P OCGLUC #### [facility] [address] [address] [address] Luis Carlos Fletcher Glucose [Mass/Vol] 216 mg/dL Critically high 74-106 [facility] Comment on above: Performed By: #### B MP #### [facility] [address] [address] [address] Luis Carlos Fletcher PROF CHEM 8 (BAS METB)on Anion gap [Moles/Vol] 2.6 mmol/L Normal [facility] Comment on above: Performed By: #### B MP #### [facility] [address] [place] [address] Dr. Luis Carlos Fletcher Calcium [Mass/Vol] 8.3 mg/dL Critically low 8.5-10.1 [facility] Comment on above: Performed By: #### B MP #### [facility] [address] [address] [address] Luis Carlos Fletcher Chloride [Moles/Vol] 103 mmol/L Normal 98-107 [facility] Comment on above: Performed By: #### B MP #### [facility] [address] [address] [address] Luis Carlos Fletcher CO2 [Moles/Vol] 39.7 mmol/L Critically high 21.0-32.0 [facility] Comment on above: Performed By: #### B MP #### [facility] [address] [address] [address] Luis Carlos Fletcher Creatinine [Mass/Vol] 0.73 mg/dL Normal 0.70-1.30 [facility] Comment on above: Performed By: #### B MP #### [facility] [address] [place] [address] Dr. Luis Carlos Fletcher EGFR-AF MAURITIAN >60 Normal >=60 [facility] Comment on above: Performed By: #### B MP #### [facility] [address] [address] [address] Luis Carlos Fletcher EGFR-NON AF MAURITIAN >60 Normal >=60 [facility] Comment on above: Performed By: #### B MP #### [facility] [address] [address] [address] Luis Carlos Fletcher Glucose [Mass/Vol] 130 mg/dL Critically high 74-106 [facility] Comment on above: Performed By: #### B MP #### [facility] [address] [address] [address] Luis Carlos Fletcher Potassium [Moles/Vol] 4.3 mmol/L Normal 3.5-5.1 [facility] Comment on above: Performed By: #### B MP #### [facility] [address] [address] [address] Luis Carlos Fletcher Sodium [Moles/Vol] 141 mmol/L Normal 136-145 [facility] Comment on above: Performed By: #### B MP #### [facility] [address] [address] [address] Luis Carlos Fletcher Urea nitrogen [Mass/Vol] 20.0 mg/dL Critically high 7.0-18.0 [facility] Comment on above: Performed By: #### B MP #### [facility] [address] [address] [address] Luis Carlos Fletcher Urea nitrogen/Creatinine [Mass ratio] 27.4 mg/mg Normal [facility] Comment on above: Performed By: #### B MP #### [facility] [address] [address] [address] Luis Carlos Fletcher CBC W MANUAL DIFFon 06-17-19 23 ATYPICAL LYMPH # 0.63 103/ul Normal [facility] Comment on above: Performed By: #### P OCGLUC #### [facility] [address] [address] [address] Luis Carlos Fletcher ATYPICAL LYMPH % 6 % Normal [facility] Comment on above: Performed By: #### P OCGLUC #### [facility] [address] [address] [address] Luis Carlos Fletcher BAND # 0.0 103/ul Normal 0.0-0.3 [facility] Comment on above: Performed By: #### P OCGLUC #### [facility] [address] [address] [address] Luis Carlos Fletcher BAND % 0 % Normal 0-5 [facility] Comment on above: Performed By: #### P OCGLUC #### [facility] [address] [place] [address] Dr. Luis Carlos Fletcher BASOM # 0.00 103/ul Normal 0.00-0.10 [facility] Comment on above: Performed By: #### P OCGLUC #### [facility] [address] [place] [address] Dr. Luis Carlos Fletcher BASOM % 0.0 % Critically low 0.2-2.0 [facility] Comment on above: Performed By: #### P OCGLUC #### [facility] [address] [place] [address] Dr. Luis Carlos Fletcher BLAST # Normal [facility] Comment on above: Performed By: #### P OCGLUC #### [facility] [address] [address] [address] Luis Carlos Fletcher BLAST % Normal [facility] Comment on above: Performed By: #### P OCGLUC #### [facility] [address] [address] [address] Luis Carlos Fletcher CORRECTED WBC Normal 4.0-11.0 [facility] Comment on above: Performed By: #### P OCGLUC #### [facility] [address] [address] [address] Luis Carlos Fletcher EOS # 0.00 103/ul Normal 0.00-0.70 [facility] Comment on above: Performed By: #### P OCGLUC #### [facility] [address] [place] [address] Dr. Luis Carlos Fletcher EOS% 0.0 % Critically low 0.9-7.0 [facility] Comment on above: Performed By: #### P OCGLUC #### [facility] [address] [place] [address] Dr. Luis Carlos Fletcher HCT 45.8 % Normal 42.0-54.0 [facility] Comment on above: Performed By: #### P OCGLUC #### [facility] [address] [address] [address] Luis Carlos Fletcher HGB 15.2 g/dl Normal 14.0-18.0 [facility] Comment on above: Performed By: #### P OCGLUC #### [facility] [address] [address] [address] Luis Carlos Fletcher LYMPHM # 0.00 103/ul Critically low 1.20-3.80 [facility] Comment on above: Performed By: #### P OCGLUC #### [facility] [address] [address] [address] Luis Carlos Fletcher LYMPHM% 0.0 % Critically low 20.5-60.[address] [facility] Comment on above: Performed By: #### P OCGLUC #### [facility] [address] [place] [address] Dr. Luis Carlos Fletcher MCH 30.6 pg Normal 25.9-34.0 [facility] Comment on above: Performed By: #### P OCGLUC #### [facility] [address] [place] [address] Dr. Luis Carlos Fletcher MCHC 33.2 g/dl Normal 29.9-35.2 [facility] Comment on above: Performed By: #### P OCGLUC #### [facility] [address] [place] [address] Dr. Luis Carlos Fletcher MCV 92.3 fL Normal 80.0-94.0 [facility] Comment on above: Performed By: #### P OCGLUC #### [facility] [address] [place] [address] Dr. Luis Carlos Fletcher METAMYELOCYTE # Normal [facility] Comment on above: Performed By: #### P OCGLUC #### [facility] [address] [place] [address] Dr. Luis Carlos Fletcher METAMYELOCYTE % Normal [facility] Comment on above: Performed By: #### P OCGLUC #### [facility] [address] [address] [address] Luis Carlos Fletcher MONOM# 0.21 103/ul Critically low 0.30-0.80 [facility] Comment on above: Performed By: #### P OCGLUC #### [facility] [address] [address] [address] Luis Carlos Fletcher MONOM% 2.0 % Normal 1.7-12.0 [facility] Comment on above: Performed By: #### P OCGLUC #### [facility] [address] [address] [address] Luis Carlos Fletcher MPV 10.0 fL Normal 9.5-13.5 [facility] Comment on above: Performed By: #### P OCGLUC #### [facility] [address] [address] [address] Luis Carlos Fletcher MYELOCYTE # Normal [facility] Comment on above: Performed By: #### P OCGLUC #### [facility] [address] [place] [address] Dr. Luis Carlos Fletcher MYELOCYTE % Normal [facility] Comment on above: Performed By: #### P OCGLUC #### [facility] [address] [place] [address] Dr. Luis Carlos Fletcher NRBC Normal [facility] Comment on above: Performed By: #### P OCGLUC #### [facility] [address] [place] [address] Dr. Luis Carlos Fletcher PLT 215 103/ul Normal 150-450 [facility] Comment on above: Performed By: #### P OCGLUC #### [facility] [address] [place] [address] Dr. Luis Carlos Fletcher RBC 4.96 106/ul Normal 4.70-6.10 [facility] Comment on above: Performed By: #### P OCGLUC #### [facility] [address] [address] [address] Luis Carlos Fletcher RDW 13.4 % Normal 11.0-15.0 [facility] Comment on above: Performed By: #### P OCGLUC #### [facility] [address] [place] [address] Dr. Luis Carlos Fletcher SEG # 9.66 103/ul Critically high 1.40-6.50 [facility] Comment on above: Performed By: #### P OCGLUC #### [facility] [address] [address] [address] Luis Carlos Fletcher SEG % 92.0 % Critically high 43.0-75.0 [facility] Comment on above: Performed By: #### P OCGLUC #### [facility] [address] [address] [address] Luis Carlos Fletcher WBC 10.5 103/ul Normal 4.0-11.0 [facility] Comment on above: Performed By: #### P OCGLUC #### [facility] [address] [address] [address] Luis Carlos Fletcher POINT OF CARE GLUCOSEon 05-19 Glucose [Mass/Vol] 136 mg/dL Critically high 74-106 [facility] Comment on above: Performed By: #### P OCGLUC #### [facility] [address] [address] [address] Luis Carlos Fletcher Glucose [Mass/Vol] 106 mg/dL Normal 74-106 [facility] Comment on above: Performed By: #### B MP #### [facility] [address] [address] [address] Luis Carlos Fletcher Glucose [Mass/Vol] 156 mg/dL Critically high 74-106 [facility] Comment on above: Performed By: #### P OCGLUC #### [facility] [address] [address] [address] Luis Carlos Fletcher PROF CHEM 8 (BAS METB)on Anion gap [Moles/Vol] 7.8 mmol/L Normal [facility] Comment on above: Performed By: #### P OCGLUC #### [facility] [address] [address] [address] Luis Carlos Fletcher Calcium [Mass/Vol] 8.5 mg/dL Normal 8.5-10.1 [facility] Comment on above: Performed By: #### P OCGLUC #### [facility] [address] [address] [address] Luis Carlos Fletcher Chloride [Moles/Vol] 103 mmol/L Normal 98-107 [facility] Comment on above: Performed By: #### P OCGLUC #### [facility] [address] [address] [address] Luis Carlos Fletcher CO2 [Moles/Vol] 34.0 mmol/L Critically high 21.0-32.0 [facility] Comment on above: Performed By: #### P OCGLUC #### [facility] [address] [address] [address] Luis Carlos Fletcher Creatinine [Mass/Vol] 0.70 mg/dL Normal 0.70-1.30 [facility] Comment on above: Performed By: #### P OCGLUC #### [facility] [address] [address] [address] Luis Carlos Fletcher EGFR-AF MAURITIAN >60 Normal >=60 [facility] Comment on above: Performed By: #### P OCGLUC #### [facility] [address] [address] [address] Luis Carlos Fletcher EGFR-NON AF MAURITIAN >60 Normal >=60 [facility] Comment on above: Performed By: #### P OCGLUC #### [facility] [address] [address] [address] Luis Carlos Fletcher Glucose [Mass/Vol] 122 mg/dL Critically high 74-106 [facility] Comment on above: Performed By: #### P OCGLUC #### [facility] [address] [address] [address] Luis Carlos Fletcher Potassium [Moles/Vol] 4.8 mmol/L Normal 3.5-5.1 [facility] Comment on above: Performed By: #### P OCGLUC #### [facility] [address] [address] [address] Luis Carlos Fletcher Sodium [Moles/Vol] 140 mmol/L Normal 136-145 [facility] Comment on above: Performed By: #### P OCGLUC #### [facility] [address] [address] [address] Luis Carlos Fletcher Urea nitrogen [Mass/Vol] 18.0 mg/dL Normal 7.0-18.0 [facility] Comment on above: Performed By: #### P OCGLUC #### [facility] [address] [place] [address] Dr. Luis Carlos Fletcher Urea nitrogen/Creatinine [Mass ratio] 25.7 mg/mg Normal [facility] Comment on above: Performed By: #### P OCGLUC #### [facility] [address] [place] [address] Dr. Luis Carlos Fletcher CBC W MANUAL DIFFon 06-16-19 23 ATYPICAL LYMPH # Normal [facility] Comment on above: Performed By: #### B MP #### [facility] [address] [place] [address] Dr. Luis Carols Fletcher ATYPICAL LYMPH % Normal [facility] Comment on above: Performed By: #### B MP #### [facility] [address] [place] [address] Dr. Luis Carlos Fletcher BAND # 0.0 103/ul Normal 0.0-0.3 [facility] Comment on above: Performed By: #### B MP #### [facility] [address] [place] [address] Dr. Luis Carlos Fletcher BAND % 0 % Normal 0-5 [facility] Comment on above: Performed By: #### B MP #### [facility] [address] [place] [address] Dr. Luis Carlos Fletcher BASOM # 0.00 103/ul Normal 0.00-0.10 [facility] Comment on above: Performed By: #### B MP #### [facility] [address] [place] [address] Dr. Luis Carlos Fletcher BASOM % 0.0 % Critically low 0.2-2.0 [facility] Comment on above: Performed By: #### B MP #### [facility] [address] [place] [address] Dr. Luis Carlos Fletcher BLAST # Normal [facility] Comment on above: Performed By: #### B MP #### [facility] [address] [place] [address] Dr. Luis Carlos Fletcher BLAST % Normal [facility] Comment on above: Performed By: #### B MP #### [facility] [address] [place] [address] Dr. Luis Carlos Fletcher CORRECTED WBC Normal 4.0-11.0 [facility] Comment on above: Performed By: #### B MP #### [facility] [address] [place] [address] Dr. Luis Carlos Fletcher EOS # 0.00 103/ul Normal 0.00-0.70 [facility] Comment on above: Performed By: #### B MP #### [facility] [address] [place] [address] Dr. Luis Carlos Fletcher EOS% 0.0 % Critically low 0.9-7.0 [facility] Comment on above: Performed By: #### B MP #### [facility] [address] [place] [address] Dr. Luis Carlos Fletcher HCT 44.3 % Normal 42.0-54.0 [facility] Comment on above: Performed By: #### B MP #### [facility] [address] [place] [address] Dr. Luis Carlos Fletcher HGB 14.3 g/dl Normal 14.0-18.0 [facility] Comment on above: Performed By: #### B MP #### [facility] [address] [place] [address] Dr. Luis Carlos Fletcher LYMPHM # 0.25 103/ul Critically low 1.20-3.80 [facility] Comment on above: Performed By: #### B MP #### [facility] [address] [place] [address] Dr. Luis Carlos Fletcher LYMPHM% 2.0 % Critically low 20.5-60.0 [facility] Comment on above: Performed By: #### B MP #### [facility] [address] [place] [address] Dr. Luis Carlos Fletcher MCH 30.5 pg Normal 25.9-34.0 [facility] Comment on above: Performed By: #### B MP #### [facility] [address] [place] [address] Dr. Luis Carlos Fletcher MCHC 32.3 g/dl Normal 29.9-35.2 [facility] Comment on above: Performed By: #### B MP #### [facility] [address] [address] [address] Luis Carlos Fletcher MCV 94.5 fL Critically high 80.0-94.0 [facility] Comment on above: Performed By: #### B MP #### [facility] [address] [address] [address] Luis Carlos Fletcher METAMYELOCYTE # Normal [facility] Comment on above: Performed By: #### B MP #### [facility] [address] [address] [address] Luis Carlos Fletcher METAMYELOCYTE % Normal [facility] Comment on above: Performed By: #### B MP #### [facility] [address] [place] [address] Dr. Luis Carlos Fletcher MONOM# 0.00 103/ul Critically low 0.30-0.80 [facility] Comment on above: Performed By: #### B MP #### [facility] [address] [place] [address] Dr. Luis Carlos Fletcher MONOM% 0.0 % Critically low 1.7-12.[address] [facility] Comment on above: Performed By: #### B MP #### [facility] [address] [place] [address] Dr. Luis Carlos Fletcher MPV 10.3 fL Normal 9.5-13.5 [facility] Comment on above: Performed By: #### B MP #### [facility] [address] [place] [address] Dr. Luis Carlos Fletcher MYELOCYTE # Normal [facility] Comment on above: Performed By: #### B MP #### [facility] [address] [address] [address] Luis Carlos Fletcher MYELOCYTE % Normal [facility] Comment on above: Performed By: #### B MP #### [facility] [address] [place] [address] Dr. Luis Carlos Fletcher NRBC Normal [facility] Comment on above: Performed By: #### B MP #### [facility] [address] [address] [address] Luis Carlos Fletcher PLT 195 103/ul Normal 150-450 [facility] Comment on above: Performed By: #### B MP #### [facility] [address] [address] [address] Luis Carlos Fletcher RBC 4.69 106/ul Critically low 4.70-6.10 [facility] Comment on above: Performed By: #### B MP #### [facility] [address] [address] [address] Luis Carlos Fletcher RDW 13.7 % Normal 11.0-15.0 [facility] Comment on above: Performed By: #### B MP #### [facility] [address] [address] [address] Luis Carlos Fletcher SEG # 12.45 103/ul Critically high 1.40-6.[address] [facility] Comment on above: Performed By: #### B MP #### [facility] [address] [place] [address] Dr. Luis Carlos Fletcher SEG % 98.0 % Critically high 43.0-75.0 [facility] Comment on above: Performed By: #### B MP #### [facility] [address] [place] [address] Dr. Luis Carlos Fletcher WBC 12.7 103/ul Critically high 4.0-11.0 [facility] Comment on above: Performed By: #### B MP #### [facility] [address] [place] [address] Dr. Luis Carlos Fletcher POINT OF CARE GLUCOSEon 05-19 Glucose [Mass/Vol] 118 mg/dL Critically high 74-106 [facility] Comment on above: Performed By: #### P OCGLUC #### [facility] [address] [place] [address] Dr. Luis Carlos Fletcher Glucose [Mass/Vol] 139 mg/dL Critically high 74-106 [facility] Comment on above: Performed By: #### P OCGLUC #### [facility] [address] [place] [address] Dr. Luis Carlos Fletcher Glucose [Mass/Vol] 135 mg/dL Critically high 74-106 [facility] Comment on above: Performed By: #### H STROPN #### [facility] [address] [address] [address] Luis Carlos Fletcher PROF CHEM 8 (BAS METB)on Anion gap [Moles/Vol] 7.8 mmol/L Normal [facility] Comment on above: Performed By: #### P OCGLUC #### [facility] [address] [address] [address] Luis Carlos Fletcher Calcium [Mass/Vol] 8.6 mg/dL Normal 8.5-10.1 [facility] Comment on above: Performed By: #### P OCGLUC #### [facility] [address] [place] [address] Dr. Luis Carlos Fletcher Chloride [Moles/Vol] 104 mmol/L Normal 98-107 [facility] Comment on above: Performed By: #### P OCGLUC #### [facility] [address] [place] [address] Dr. Lusi Carlos Fletcher CO2 [Moles/Vol] 35.6 mmol/L Critically high 21.0-32.0 [facility] Comment on above: Performed By: #### P OCGLUC #### [facility] [address] [place] [address] Dr. Luis Carlos Fletcher Creatinine [Mass/Vol] 0.70 mg/dL Normal 0.70-1.30 [facility] Comment on above: Performed By: #### P OCGLUC #### [facility] [address] [place] [address] Dr. Luis Carlos Fletcher EGFR-AF MAURITIAN >60 Normal >=60 [facility] Comment on above: Performed By: #### P OCGLUC #### [facility] [address] [place] [address] Dr. Luis Carlos Fletcher EGFR-NON AF MAURITIAN >60 Normal >=60 [facility] Comment on above: Performed By: #### P OCGLUC #### [facility] [address] [place] [address] Dr. Luis Carlos Fletcher Glucose [Mass/Vol] 125 mg/dL Critically high 74-106 T [facility] Comment on above: Performed By: #### P OCGLUC #### [facility] [address] [address] [address] Luis Carlos Fletcher Potassium [Moles/Vol] 4.4 mmol/L Normal 3.5-5.1 [facility] Comment on above: Performed By: #### P OCGLUC #### [facility] [address] [address] [address] Luis aCrlos Fletcher Sodium [Moles/Vol] 143 mmol/L Normal 136-145 [facility] Comment on above: Performed By: #### P OCGLUC #### [facility] [address] [address] [address] Luis Carlos Fletcher Urea nitrogen [Mass/Vol] 19.0 mg/dL Critically high 7.0-18.0 [facility] Comment on above: Performed By: #### P OCGLUC #### [facility] [address] [address] [address] Luis Carlos Fletcher Urea nitrogen/Creatinine [Mass ratio] 27.1 mg/mg Normal [facility] Comment on above: Performed By: #### P OCGLUC #### [facility] [address] [place] [address] Dr. Luis Carlos Fletcher XR CHEST 1 Von 06-15-2022 XR CHEST 1 V EXAM: XR CHEST 1 V HISTORY: ACUTE RESPIRATORY DISTRESS COMPARISON: 06/12/2022. TECHNIQUE: Single projection. FINDINGS: Cardiomediastinal shadows are normal with no focal infiltrate, pneumothorax, edema, or pleural effusion developing. Lung volumes are symmetric and within normal limits. The visualized bony thorax is intact. There is significant degenerative changes of the left shoulder joint. IMPRESSION: No acute or focal cardiopulmonary findings. Electronically authenticated by: CUONG YOST Date: 2022-06-15 09:22 Normal [facility] BLOOD GASES BTYon 06-14-2022 02 MODE NASAL CANNULA Normal [facility] Comment on above: Performed By: #### P OCGLUC #### [facility] [address] [address] [address] Luis Carlos Fletcher ALLENS TEST Positive Normal [facility] Comment on above: Performed By: #### P OCGLUC #### [facility] [address] [address] [address] Luis Carlos Fletcher Base excess Calc (Bld) [Moles/Vol] 12.2 mmol/L Critically high -2.0-2.0 [facility] Comment on above: Performed By: #### P OCGLUC #### [facility] [address] [address] [address] Luis Carlos Fletcher BIPAP PRESSURE Normal [facility] Comment on above: Performed By: #### P OCGLUC #### [facility] [address] [address] [address] Luis Carlos Fletcher CPAP [facility] Comment on above: Performed By: #### P OCGLUC #### [facility] [address] [address] [address] Luis Carlos Fletcher FIO2 [facility] Comment on above: Performed By: #### P OCGLUC #### [facility] [address] [address] [address] Luis Carlos Fletcher HCO3 (Bld) [Moles/Vol] 37.5 mmol/L Critically high 22.0-26.0 [facility] Comment on above: Performed By: #### P OCGLUC #### [facility] [address] [address] [address] Luis Carlos Fletcher LPM 2 [facility] Comment on above: Performed By: #### P OCGLUC #### [facility] [address] [address] [address] Luis Carlos Fletcher MINUTE VOLUME Normal [facility] Comment on above: Performed By: #### P OCGLUC #### [facility] [address] [address] [address] Luis Carlos Fletcher Oxygen (Bld) [Partial pressure] 72.3 mm[Hg] Critically low 80.0-100.0 [facility] Comment on above: Performed By: #### P OCGLUC #### [facility] [address] [address] [address] Luis Carlos Fletcher Oxygen saturation in Blood 95.4 % Normal 95.0-100.0 [facility] Comment on above: Performed By: #### P OCGLUC #### [facility] [address] [address] [address] Luis Carlos Fletcher PCO2 65.6 mmHg Critically high 35.0-45.0 [facility] Comment on above: Performed By: #### P OCGLUC #### [facility] [address] [address] [address] Luis Carlos Fletcher [facility] Comment on above: Performed By: #### P OCGLUC #### [facility] [address] [address] [address] Luis Carlos Fletcher pH (Bld) 7.366 [pH] Normal 7.350-7.450 [facility] Comment on above: Performed By: #### P OCGLUC #### [facility] [address] [place] [address] Dr. Luis Carlos Fletcher [facility] Comment on above: Performed By: #### P OCGLUC #### [facility] [address] [place] [address] Dr. Luis Carlos Fletcher [facility] Comment on above: Performed By: #### P OCGLUC #### [facility] [address] [place] [address] Dr. Luis Carlos Fletcher PUNCTURE SITE LR [facility] Comment on above: Performed By: #### P OCGLUC #### [facility] [address] [place] [address] Dr. Luis Carlos Fletcher RATE [facility] Comment on above: Performed By: #### P OCGLUC #### [facility] [address] [place] [address] Dr. Luis Carlos Fletcher VENT MODE [facility] Comment on above: Performed By: #### P OCGLUC #### [facility] [address] [place] [address] Dr. Luis Carlos Fletcher [facility] Comment on above: Performed By: #### P OCGLUC #### [facility] [address] [place] [address] Dr. Luis Carlos Fletcher CBC AUTO DIFFon 06-14-2022 BASO # 0.0 103/ul Normal 0.0-0.1 [facility] Comment on above: Performed By: #### H STROPN #### [facility] [address] [address] [address] Luis Carlos Fletcher Basophils/100 WBC (Bld) 0.1 % Critically low 0.2-2.0 [facility] Comment on above: Performed By: #### H STROPN #### [facility] [address] [address] [address] Luis Carlos Fletcher EO # 0.0 103/ul Normal 0.0-0.7 [facility] Comment on above: Performed By: #### H STROPN #### [facility] [address] [address] [address] Luis Carlos Fletcher Eosinophils/100 WBC (Bld) 0.1 % Critically low 0.9-7.0 [facility] Comment on above: Performed By: #### H STROPN #### [facility] [address] [place] [address] Dr. Luis Carlos Fletcher Erythrocyte distribution width (RBC) [Ratio] 13.5 % Normal 11.0-15.0 [facility] Comment on above: Performed By: #### H STROPN #### [facility] [address] [address] [address] Luis Carlos Fletcher Hematocrit (Bld) [Volume fraction] 42.6 % Normal 42.0-54.0 [facility] Comment on above: Performed By: #### H STROPN #### [facility] [address] [place] [address] Dr. Luis Carlos Fletcher Hemoglobin (Bld) [Mass/Vol] 13.6 g/dL Critically low 14.0-18.0 [facility] Comment on above: Performed By: #### H STROPN #### [facility] [address] [address] [address] Luis Carlos Fletcher IG # 0.05 10e3/ul Critically high 0.00-0.[address] [facility] Comment on above: Performed By: #### H STROPN #### [facility] [address] [address] [address] Luis Carlos Fletcher IG % 0.4 % Normal 0.0-0.5 [facility] Comment on above: Performed By: #### H STROPN #### [facility] [address] [place] [address] Dr. Luis Carlos Fletcher LYMPH # 0.7 103/ul Critically low 1.2-3.8 [facility] Comment on above: Performed By: #### H STROPN #### [facility] [address] [place] [address] Dr. Luis Carlos Fletcher Lymphocytes/100 WBC (Bld) 5.8 % Critically low 20.5-60.0 [facility] Comment on above: Performed By: #### H STROPN #### [facility] [address] [place] [address] Dr. Luis Carlos Fletcher MANUAL DIFF REQ NO Normal [facility] Comment on above: Performed By: #### H STROPN #### [facility] [address] [place] [address] Dr. Luis Carlos Fletcher MCH (RBC) [Entitic mass] 30.5 pg Normal 25.9-34.0 [facility] Comment on above: Performed By: #### H STROPN #### [facility] [address] [place] [address] Dr. Luis Carlos Fletcher MCHC (RBC) [Mass/Vol] 31.9 g/dL Normal 29.9-35.2 [facility] Comment on above: Performed By: #### H STROPN #### [facility] [address] [place] [address] Dr. Luis Carlos Fletcher MCV (RBC) [Entitic vol] 95.5 fL Critically high 80.0-94.0 [facility] Comment on above: Performed By: #### H STROPN #### [facility] [address] [place] [address] Dr. Luis Carlos Fletcher MONO # 0.5 103/ul Normal 0.3-0.8 [facility] Comment on above: Performed By: #### H STROPN #### [facility] [address] [address] [address] Luis Carlos Fletcher Monocytes/100 WBC (Bld) 3.9 % Normal 1.7-12.0 [facility] Comment on above: Performed By: #### H STROPN #### [facility] [address] [address] [address] Luis Carlos Fletcher NEUT # 10.6 103/ul Critically high 1.4-6.5 [facility] Comment on above: Performed By: #### H STROPN #### [facility] [address] [address] [address] Luis Carlos Fletcher Neutrophils/100 WBC (Bld) 89.7 % Critically high 43.0-75.0 [facility] Comment on above: Performed By: #### H STROPN #### [facility] [address] [place] [address] Dr. Luis Carlos Fletcher Platelet mean volume (Bld) [Entitic vol] 10.6 fL Normal 9.5-13.5 [facility] Comment on above: Performed By: #### H STROPN #### [facility] [address] [address] [address] Luis Carlos Fletcher PLT 153 103/ul Normal 150-450 [facility] Comment on above: Performed By: #### H STROPN #### [facility] [address] [place] [address] Dr. Luis Carlos Fletcher RBC 4.46 106/ul Critically low 4.70-6.10 [facility] Comment on above: Performed By: #### H STROPN #### [facility] [address] [place] [address] Dr. Luis Carlos Fletcher WBC 11.8 103/ul Critically high 4.0-11.0 [facility] Comment on above: Performed By: #### H STROPN #### [facility] [address] [place], [place] [id number] Dr. Luis Carlos Fletcher ECHOCARDIO M/2D COMPLETEon 0 06-14-2022 ECHOCARDIO M/2D COMPLETE Patient: CALLI LOUIE Exam Date: 06/14/2022 : 1950 Gender:M Ordering : SHAIKH Elisa ESCOBAR . Admission #: [id number] Family : Order #: [id number] CLICK HERE TO VIEW EXAM ECHOCARDIOGRAM REPORT PROCEDURE: CARDIO PULMONARY ECHOCARDIO M/2D COMP INDICATIONS: Shortness of breath, COPD COMPARISON: None. DESCRIPTION: COMPLETE ECHOCARDIOGRAM Real-time transthoracic echocardiography with 2D, M-mode, spectral and color flow Doppler performed. QUALITY: Technical quality was good. LEFT VENTRICLE: Normal chamber size. Normal left ventricular wall thickness. Global left ventricular systolic function is normal. LV EF: Visual estimation of left ventricular ejection fraction is 65% DIASTOLIC: Normal diastolic function. ATRIAL SEPTUM: LEFT ATRIUM: Normal chamber size. RIGHT ATRIUM: Mild dilatation. RIGHT VENTRICLE: Normal chamber size. Normal right ventricular systolic function. TRICUSPID VALVE: Normal mobility and thickness. No stenosis with mild regurgitation. Moderate pulmonary hypertension. RVSP 49 mmHg MITRAL VALVE: Normal mobility and thickness. No mitral valve prolapse. No evidence of mitral valve stenosis. There is no mitral annular calcification. Trivial mitral regurgitation. AORTIC VALVE: Normal trileaflet appearance. No visible sclerosis. Normal leaflet mobility. No evidence of aortic valve stenosis. No aortic regurgitation. AORTIC ROOT: Normal diameter and appearance. PULMONIC VALVE: Normal thickness and mobility. No stenosis. Trivial regurgitation. PERICARDIUM: No evidence of pericardial effusion. IVC: Normal size measuring 1.6 cm with partial collapse. PLEURA: CONCLUSION: 1. Normal ventricular systolic function. LVEF is 65%. 2. Normal diastolic function. 3. Mild mitral regurgitation. 4. Moderately elevated right-sided pressures. RVSP is 49 mmHg. Adult Echocardiography Procedure Report Left Ventricle LVEDD (3.7 - 5.6 cm): 4.76 cm LVESD (2.2 - 4.0 cm): 3.14 cm LVIVS thickness (0.6 - 1.2 cm): 0.83 cm LVPW thickness (0.5 - 1.0 cm): 0.66 cm e': 0.09 m/s E - e': 8.87 LVOT Max Gradient: 4.34 mm[Hg] Peak Velocity (LVOT): 1.04 m/s Mean Velocity (LVOT): 0.68 m/s LVOT Diameter 2.26 cm Left Ventricular Ejection Fraction: 65 % Left Atrium LA Volume Index (2D A2C): 31.44 ml, 31.44 ml Left Atrium Systolic Dimension: 3.35 cm Mitral Valve MV E to A Ratio: 0.99 Mitral Valve A-Wave Peak Velocity: 0.77 m/s Mitral Valve E-Wave Peak Velocity: 0.76 m/s Right Ventricle RV Internal Diastolic Dimension: 3.35 cm Aorta AO Root Diam: 2.79 cm Ascending Ao Diam: 2.85 cm Aortic Valve AoV Area (Peak Chauncey): 3.06 cm2, 3.27 cm2 AoV Area (VTI): 3.55 cm2, 3.90 cm2 Peak Velocity(Antegrade Flow): 1.28 m/s, 1.46 m/s Peak Gradient(Antegrade Flow): 6.56 mm[Hg], 8.50 mm[Hg] Mean Velocity(Antegrade Flow): 0.90 m/s, 0.98 m/s Mean Gradient(Antegrade Flow): 3.64 mm[Hg], 4.38 mm[Hg] Velocity Time Integral: 22.11 cm, 26.43 cm Tricuspid Valve Peak Velocity (Regurgitant Flow): 2.26 m/s, 2.56 m/s, 3.19 m/s, 3.05 m/s Pulmonic Valve Peak Velocity: 1.09 m/s, 1.04 m/s Peak Gradient: 4.76 mm[Hg], 4.31 mm[Hg] Right Atrium Right Atrium Systolic Pressure: 46.20 ml, 46.20 ml Dictated by: Jules Acuña M.D. on 06/14/2022 at 18:21 Approved by: Jules Acuña M.D. on 06/14/2022 at 18:26 Normal [facility] POINT OF CARE GLUCOSEon - Glucose [Mass/Vol] 168 mg/dL Critically high 74-106 [facility] Comment on above: Performed By: #### H STROPN #### [facility] [address] [address] [address] Luis Carlos Fletcher Glucose [Mass/Vol] 152 mg/dL Critically high 74-106 [facility] Comment on above: Performed By: #### B MP #### [facility] [address] [address] [address] Luis Carlos Fletcher Glucose [Mass/Vol] 141 mg/dL Critically high 74-106 [facility] Comment on above: Performed By: #### B MP #### [facility] [address] [address] [address] Luis Carlos Fletcher PROF CHEM 8 (BAS METB)on Anion gap [Moles/Vol] 6.7 mmol/L Normal [facility] Comment on above: Performed By: #### B MP #### [facility] [address] [address] [address] Luis Carlos Fletcher Calcium [Mass/Vol] 8.7 mg/dL Normal 8.5-10.1 [facility] Comment on above: Performed By: #### B MP #### [facility] [address] [address] [address] Luis Carlos Fletcher Chloride [Moles/Vol] 105 mmol/L Normal 98-107 [facility] Comment on above: Performed By: #### B MP #### [facility] [address] [address] [address] Luis Carlos Fletcher CO2 [Moles/Vol] 35.0 mmol/L Critically high 21.0-32.0 [facility] Comment on above: Performed By: #### B MP #### [facility] [address] [place] [address] Dr. Luis Carlos Fletcher Creatinine [Mass/Vol] 0.75 mg/dL Normal 0.70-1.30 [facility] Comment on above: Performed By: #### B MP #### [facility] [address] [address] [address] Luis Carlos Fletcher EGFR-AF MAURITIAN >60 Normal >=60 [facility] Comment on above: Performed By: #### B MP #### [facility] [address] [address] [address] Luis Carlos Fletcher EGFR-NON AF MAURITIAN >60 Normal >=60 [facility] Comment on above: Performed By: #### B MP #### [facility] [address] [place] [address] Dr. Luis Carlos Fletcher Glucose [Mass/Vol] 158 mg/dL Critically high 74-106 [facility] Comment on above: Performed By: #### B MP #### [facility] [address] [address] [address] Luis Carlos Fletcher Potassium [Moles/Vol] 4.7 mmol/L Normal 3.5-5.1 [facility] Comment on above: Performed By: #### B MP #### [facility] [address] [place] [address] Dr. Luis Carlos Fletcher Sodium [Moles/Vol] 142 mmol/L Normal 136-145 [facility] Comment on above: Performed By: #### B MP #### [facility] [address] [place] [address] Dr. Luis Carlos Fletcher Urea nitrogen [Mass/Vol] 18.0 mg/dL Normal 7.0-18.0 [facility] Comment on above: Performed By: #### B MP #### [facility] [address] [place] [address] Dr. Luis Carlos Fletcher Urea nitrogen/Creatinine [Mass ratio] 24.0 mg/mg Normal [facility] Comment on above: Performed By: #### B MP #### [facility] [address] [place] [address] Dr. Luis Carlos Fletcher CBC AUTO DIFFon 06-13-2022 BASO # 0.0 103/ul Normal 0.0-0.1 [facility] Comment on above: Performed By: #### C BC #### [facility] [address] [place] [address] Dr. Luis Carlos Fletcher Basophils/100 WBC (Bld) 0.2 % Normal 0.2-2.0 [facility] Comment on above: Performed By: #### C BC #### [facility] [address] [place] [address] Dr. Luis Carlos Fletcher EO # 0.0 103/ul Normal 0.0-0.7 [facility] Comment on above: Performed By: #### C BC #### [facility] [address] [place] [address] Dr. Luis Carlos Fletcher Eosinophils/100 WBC (Bld) 0.0 % Critically low 0.9-7.0 [facility] Comment on above: Performed By: #### C BC #### [facility] [address] [address] [address] Luis Carlos Fletcher Erythrocyte distribution width (RBC) [Ratio] 13.2 % Normal 11.0-15.0 [facility] Comment on above: Performed By: #### C BC #### [facility] [address] [place] [address] Dr. Luis Carlos Fletcher Hematocrit (Bld) [Volume fraction] 42.4 % Normal 42.0-54.0 [facility] Comment on above: Performed By: #### C BC #### [facility] [address] [place] [address] Dr. Luis Carlos Fletcher Hemoglobin (Bld) [Mass/Vol] 13.7 g/dL Critically low 14.0-18.0 [facility] Comment on above: Performed By: #### C BC #### [facility] [address] [place] [address] Dr. Luis Carlos Fletcher IG # 0.01 10e3/ul Normal 0.00-0.03 [facility] Comment on above: Performed By: #### C BC #### [facility] [address] [place] [address] Dr. Luis Carlos Fletcher IG % 0.2 % Normal 0.0-0.5 [facility] Comment on above: Performed By: #### C BC #### [facility] [address] [place] [address] Dr. Luis Carlos Fletcher LYMPH # 0.6 103/ul Critically low 1.2-3.[address] [facility] Comment on above: Performed By: #### C BC #### [facility] [address] [place] [address] Dr. Luis Carlos Fletcher Lymphocytes/100 WBC (Bld) 15.7 % Critically low 20.5-60.0 [facility] Comment on above: Performed By: #### C BC #### [facility] [address] [place] [address] Dr. Luis Carlos Fletcher MANUAL DIFF REQ NO Normal [facility] Comment on above: Performed By: #### C BC #### [facility] [address] [address] [address] Luis Carlos Fletcher MCH (RBC) [Entitic mass] 30.3 pg Normal 25.9-34.0 [facility] Comment on above: Performed By: #### C BC #### [facility] [address] [place] [address] Dr. Luis Carlos Fletcher MCHC (RBC) [Mass/Vol] 32.3 g/dL Normal 29.9-35.2 [facility] Comment on above: Performed By: #### C BC #### [facility] [address] [place] [address] Dr. Luis Carlos Fletcher MCV (RBC) [Entitic vol] 93.8 fL Normal 80.0-94.0 [facility] Comment on above: Performed By: #### C BC #### [facility] [address] [place] [address] Dr. Luis Carlos Fletcher MONO # 0.0 103/ul Critically low 0.3-0.[address] [facility] Comment on above: Performed By: #### C BC #### [facility] [address] [place] [address] Dr. Luis Carlos Fletcher Monocytes/100 WBC (Bld) 1.0 % Critically low 1.7-12.0 [facility] Comment on above: Performed By: #### C BC #### [facility] [address] [place] [address] Dr. Luis Carlos Fletcher NEUT # 3.3 103/ul Normal 1.4-6.5 [facility] Comment on above: Performed By: #### C BC #### [facility] [address] [place] [address] Dr. Luis Carlos Fletcher Neutrophils/100 WBC (Bld) 82.9 % Critically high 43.0-75.0 [facility] Comment on above: Performed By: #### C BC #### [facility] [address] [place] [address] Dr. Luis Carlos Fletcher Platelet mean volume (Bld) [Entitic vol] 10.9 fL Normal 9.5-13.5 [facility] Comment on above: Performed By: #### C BC #### [facility] [address] [place], [place] [address] Dr. Luis Carlos Fletcher PLT 125 103/ul Critically low 150-[address] [facility] Comment on above: Performed By: #### C BC #### [facility] [address] [place], [place] [address] Dr. Luis Carlos Fletcher RBC 4.52 106/ul Critically low 4.70-6.10 [facility] Comment on above: Performed By: #### C BC #### [facility] [address] [place], [place] [address] Dr. Luis Carlos Fletcher WBC 4.0 103/ul Normal 4.0-11.0 [facility] Comment on above: Performed By: #### C BC #### [facility] [address] [place], [place] [address] Dr. Luis Carlos Fletcher CTA CHEST WO W CONon 023 CTA CHEST WO W CON EXAMINATION: CTA CHEST WO W CON HISTORY: SHORTNESS OF BREATH COMPARISON: Chest radiograph 06/12/2022 TECHNIQUE: CT angiography of the pulmonary arteries following the administration of intravenous contrast. Coronal and sagittal MIP (maximum intensity projection) images were performed. Dose reduction techniques were achieved by using automated exposure control and/or adjustment of mA and/or kV according to patient size and/or use of iterative reconstruction technique. FINDINGS: The study is technically adequate for the diagnosis of pulmonary embolism, with good contrast bolus to the pulmonary arteries. TUBES AND IMPLANTS: None. CHEST WALL AND LOWER NECK: Unremarkable. BONES: No suspicious lesions. Multilevel degenerative changes of the spine. UPPER ABDOMEN: No acute findings MEDIASTINUM AND JD: Calcified mediastinal lymph nodes are seen AORTA: No dissection or aneurysm PULMONARY ARTERIES: No embolism HEART: Not enlarged CORONARY ARTERIES: Mild to moderate coronary artery calcifications. LUNG AND AIRWAYS: Background of moderate centrilobular emphysema. PLEURA: Unremarkable. IMPRESSION: 1. No evidence for pulmonary embolism. 2. No evidence of acute intrathoracic process. 3. Mild to moderate coronary artery calcification. 4. Background of moderate centrilobular emphysema. Electronically authenticated by: MARCO HO Date: 2022-06-12 22:21 Normal [facility] POINT OF CARE GLUCOSEon 05-18 Glucose [Mass/Vol] 129 mg/dL Critically high 74-106 [facility] Comment on above: Performed By: #### B MP #### [facility] [address] [place] [address] Dr. Luis Carlos Fletcher Glucose [Mass/Vol] 194 mg/dL Critically high -106 [facility] Comment on above: Performed By: #### P OCGLUC #### [facility] [address] [address] [address] Luis Carlos Fletcher Glucose [Mass/Vol] 142 mg/dL Critically high -106 [facility] Comment on above: Performed By: #### P OCGLUC #### [facility] [address] [place] [address] Dr. Luis Carlos Fletcher Glucose [Mass/Vol] 142 mg/dL Critically high -106 [facility] Comment on above: Performed By: #### H STROPN #### [facility] [address] [place] [address] Dr. Luis Carlos Fletcher PROF CHEM 8 (BAS METB)on Anion gap [Moles/Vol] 9.4 mmol/L Normal [facility] Comment on above: Performed By: #### P OCGLUC #### [facility] [address] [place] [address] Dr. Luis Carlos Fletcher Calcium [Mass/Vol] 8.5 mg/dL Normal 8.5-10.1 [facility] Comment on above: Performed By: #### P OCGLUC #### [facility] [address] [place] [address] Dr. Luis Carlos Fletcher Chloride [Moles/Vol] 103 mmol/L Normal 98-107 [facility] Comment on above: Performed By: #### P OCGLUC #### [facility] [address] [place] [address] Dr. Luis Carlos Fletcher CO2 [Moles/Vol] 33.2 mmol/L Critically high 21.0-32.0 [facility] Comment on above: Performed By: #### P OCGLUC #### [facility] [address] [place] [address] Dr. Luis Carlos Fletcher Creatinine [Mass/Vol] 0.76 mg/dL Normal 0.70-1.30 [facility] Comment on above: Performed By: #### P OCGLUC #### [facility] [address] [address] [address] Luis Carlos Fletcher EGFR-AF MAURITIAN >60 Normal >=60 [facility] Comment on above: Performed By: #### P OCGLUC #### [facility] [address] [address] [address] Luis Carlos Fletcher EGFR-NON AF MAURITIAN >60 Normal >=60 [facility] Comment on above: Performed By: #### P OCGLUC #### [facility] [address] [address] [address] Luis Carlos Fletcher Glucose [Mass/Vol] 192 mg/dL Critically high 74-106 [facility] Comment on above: Performed By: #### P OCGLUC #### [facility] [address] [place] [address] Dr. Luis Carlos Fletcher Potassium [Moles/Vol] 4.6 mmol/L Normal 3.5-5.1 [facility] Comment on above: Performed By: #### P OCGLUC #### [facility] [address] [place] [address] Dr. Luis Carlos Fletcher Sodium [Moles/Vol] 141 mmol/L Normal 136-145 [facility] Comment on above: Performed By: #### P OCGLUC #### [facility] [address] [place] [address] Dr. Luis Carlos Fletcher Urea nitrogen [Mass/Vol] 14.0 mg/dL Normal 7.0-18.0 [facility] Comment on above: Performed By: #### P OCGLUC #### [facility] [address] [place] [address] Dr. Luis Carlos Fletcher Urea nitrogen/Creatinine [Mass ratio] 18.4 mg/mg Normal [facility] Comment on above: Performed By: #### P OCGLUC #### [facility] [address] [place] [address] Dr. Luis Carlos Fletcher BNPon 06-12-2022 Natriuretic peptide B (Bld) [Mass/Vol] 78.0 pg/mL Normal <=900.0 [facility] Comment on above: Performed By: #### P OCGLUC #### [facility] [address] [place] [address] Dr. Luis Carlos Fletcher CBC AUTO DIFFon 06-12-2022 BASO # 0.0 103/ul Normal 0.0-0.1 [facility] Comment on above: Performed By: #### P OCGLUC #### [facility] [address] [place] [address] Dr. Luis Carlos Fletcher Basophils/100 WBC (Bld) 0.5 % Normal 0.2-2.0 [facility] Comment on above: Performed By: #### P OCGLUC #### [facility] [address] [place] [address] Dr. Luis Carlos Fletcher EO # 0.1 103/ul Normal 0.0-0.7 [facility] Comment on above: Performed By: #### P OCGLUC #### [facility] [address] [place] [address] Dr. Luis Carlos Fletcher Eosinophils/100 WBC (Bld) 1.2 % Normal 0.9-7.0 [facility] Comment on above: Performed By: #### P OCGLUC #### [facility] [address] [place] [address] Dr. Luis Carlos Fletchre Erythrocyte distribution width (RBC) [Ratio] 13.4 % Normal 11.0-15.0 [facility] Comment on above: Performed By: #### P OCGLUC #### [facility] [address] [place] [address] Dr. Luis Carlos Fletcher Hematocrit (Bld) [Volume fraction] 45.1 % Normal 42.0-54.0 [facility] Comment on above: Performed By: #### P OCGLUC #### [facility] [address] [place] [address] Dr. Luis Carlos Fletcher Hemoglobin (Bld) [Mass/Vol] 15.1 g/dL Normal 14.0-18.0 [facility] Comment on above: Performed By: #### P OCGLUC #### [facility] [address] [address] [address] Luis Carlos Fletcher IG # 0.01 10e3/ul Normal 0.00-0.03 [facility] Comment on above: Performed By: #### P OCGLUC #### [facility] [address] [place] [address] Dr. Luis Carlos Fletcher IG % 0.2 % Normal 0.0-0.5 [facility] Comment on above: Performed By: #### P OCGLUC #### [facility] [address] [place] [address] Dr. Luis Carlos Fletcher LYMPH # 1.8 103/ul Normal 1.2-3.8 [facility] Comment on above: Performed By: #### P OCGLUC #### [facility] [address] [place] [address] Dr. Luis Carlos Fletcher Lymphocytes/100 WBC (Bld) 27.9 % Normal 20.5-60.0 [facility] Comment on above: Performed By: #### P OCGLUC #### [facility] [address] [place] [address] Dr. Luis Carlos Fletcher MANUAL DIFF REQ NO Normal [facility] Comment on above: Performed By: #### P OCGLUC #### [facility] [address] [place] [address] Dr. Luis Carlos Fletcher MCH (RBC) [Entitic mass] 30.8 pg Normal 25.9-34.0 [facility] Comment on above: Performed By: #### P OCGLUC #### [facility] [address] [place] [address] Dr. Luis Carlos Fletcher MCHC (RBC) [Mass/Vol] 33.5 g/dL Normal 29.9-35.2 [facility] Comment on above: Performed By: #### P OCGLUC #### [facility] [address] [place] [address] Dr. Luis Carlos Fletcher MCV (RBC) [Entitic vol] 91.9 fL Normal 80.0-94.0 [facility] Comment on above: Performed By: #### P OCGLUC #### [facility] [address] [place] [address] Dr. Luis Carlos Fletcher MONO # 0.7 103/ul Normal 0.3-0.8 [facility] Comment on above: Performed By: #### P OCGLUC #### [facility] [address] [address] [address] Luis Carlos Fletcher Monocytes/100 WBC (Bld) 11.2 % Normal 1.7-12.0 [facility] Comment on above: Performed By: #### P OCGLUC #### [facility] [address] [address] [address] Luis Carlos Fletcher NEUT # 3.8 103/ul Normal 1.4-6.5 [facility] Comment on above: Performed By: #### P OCGLUC #### [facility] [address] [place] [address] Dr. Luis Carlos Fletcher Neutrophils/100 WBC (Bld) 59.0 % Normal 43.0-75.0 [facility] Comment on above: Performed By: #### P OCGLUC #### [facility] [address] [place] [address] Dr. Luis Carlos Fletcher Platelet mean volume (Bld) [Entitic vol] 10.5 fL Normal 9.5-13.5 [facility] Comment on above: Performed By: #### P OCGLUC #### [facility] [address] [place] [address] Dr. Luis Carlos Fletcher PLT 134 103/ul Critically low 150-450 [facility] Comment on above: Performed By: #### P OCGLUC #### [facility] [address] [place] [address] Dr. Luis Carlos Fletcher RBC 4.91 106/ul Normal 4.70-6.10 [facility] Comment on above: Performed By: #### P OCGLUC #### [facility] [address] [place] [address] Dr. Luis Carlos Fletcher WBC 6.5 103/ul Normal 4.0-11.0 [facility] Comment on above: Performed By: #### P OCGLUC #### [facility] [address] [place] [address] Dr. Luis Carlos Fletcher D-DIMERon 03-27-2023 D-DIMER 0.85 mg/L FEU Critically high <=0.59 [facility] Comment on above: Performed By: #### B MP #### [facility] [address] [place] [address] Dr. Luis Carlos Fletcher D-DIMER COMMENTS SEE BELOW Normal [facility] Comment on above: Result Comment: Incr eases in D-Dimer concentration observed with thromboembolic events can be variable due to localization, size, and age of the thrombus. Therefore, a thromboembolic event cannot be diagnosed with certainty on the basis of the reference range. D-Dimers may also be elevated for a variety of disorders including: advanced age, , coronary disease, cancer, liver disease, infection, inflammation, hematoma, DIC, trauma, post-surgery, diabetes, thrombolytic or anticoagulant therapy, stress, and generalized hospitalization. Performed By: #### B MP #### [facility] [address] [place] [address] Dr. Luis Carlos Fletcher PH VENOUS BLOODon 06-12-2022 PCO2 VENOUS 51.8 mmHg Normal 40.0-52.0 [facility] Comment on above: Performed By: #### B MP #### [facility] [address] [address] [address] Luis Carlos Fletcher pH VENOUS 7.402 Normal 7.330-7.430 [facility] Comment on above: Performed By: #### B MP #### [facility] [address] [place] [address] Dr. Luis Carlos Fletcher POINT OF CARE GLUCOSEon 05-18 Glucose [Mass/Vol] 224 mg/dL Critically high 74-106 [facility] Comment on above: Performed By: #### P OCGLUC #### [facility] [address] [address] [address] Luis Carlos Fletcher PROF 14(COMP METB)on 023 Albumin [Mass/Vol] 3.4 g/dL Normal 3.4-5.0 [facility] Comment on above: Performed By: #### P OCGLUC #### [facility] [address] [place] [address] Dr. Luis Carlos Fletcher Albumin/Globulin [Mass ratio] 1.1 {ratio} Normal [facility] Comment on above: Performed By: #### P OCGLUC #### [facility] [address] [address] [address] Luis Carlos Fletcher ALP [Catalytic activity/Vol] 79 U/L Normal 46-116 [facility] Comment on above: Performed By: #### P OCGLUC #### [facility] [address] [address] [address] Luis Carlos Fletcher ALT [Catalytic activity/Vol] 45 U/L Normal 16-63 [facility] Comment on above: Performed By: #### P OCGLUC #### [facility] [address] [address] [address] Luis Carlos Fletcher Anion gap [Moles/Vol] 8.9 mmol/L Normal [facility] Comment on above: Performed By: #### P OCGLUC #### [facility] [address] [address] [address] Luis Carlos Fletcher AST [Catalytic activity/Vol] 35 U/L Normal 15-37 [facility] Comment on above: Performed By: #### P OCGLUC #### [facility] [address] [address] [address] Luis Carlos Fletcher Bilirubin [Mass/Vol] 0.4 mg/dL Normal 0.2-1.0 [facility] Comment on above: Performed By: #### P OCGLUC #### [facility] [address] [address] [address] Luis Carlos Fletcher Calcium [Mass/Vol] 8.6 mg/dL Normal 8.5-10.1 [facility] Comment on above: Performed By: #### P OCGLUC #### [facility] [address] [address] [address] Luis Carlos Fletcher Chloride [Moles/Vol] 101 mmol/L Normal 98-107 [facility] Comment on above: Performed By: #### P OCGLUC #### [facility] [address] [address] [address] Luis Carlos Fletcher CO2 [Moles/Vol] 34.0 mmol/L Critically high 21.0-32.0 [facility] Comment on above: Performed By: #### P OCGLUC #### [facility] [address] [address] [address] Luis Carlos Fletcher Creatinine [Mass/Vol] 0.72 mg/dL Normal 0.70-1.30 [facility] Comment on above: Performed By: #### P OCGLUC #### [facility] [address] [address] [address] Luis Carlos Fletcher EGFR-AF MAURITIAN >60 Normal >=60 [facility] Comment on above: Performed By: #### P OCGLUC #### [facility] [address] [address] [address] Luis Carlos Fletcher EGFR-NON AF MAURITIAN >60 Normal >=60 [facility] Comment on above: Performed By: #### P OCGLUC #### [facility] [address] [address] [address] Luis Carlos Fletcher Globulin (S) [Mass/Vol] 3.1 g/dL Normal [facility] Comment on above: Performed By: #### P OCGLUC #### [facility] [address] [address] [address] Luis Carlos Fletcher Glucose [Mass/Vol] 122 mg/dL Critically high 74-106 [facility] Comment on above: Performed By: #### P OCGLUC #### [facility] [address] [address] [address] Luis Carlos Fletcher Potassium [Moles/Vol] 3.9 mmol/L Normal 3.5-5.1 [facility] Comment on above: Performed By: #### P OCGLUC #### [facility] [address] [address] [address] Luis Carlos Fletcher Protein [Mass/Vol] 6.5 g/dL Normal 6.4-8.2 [facility] Comment on above: Performed By: #### P OCGLUC #### [facility] [address] [address] [address] Luis Carlos Flecther Sodium [Moles/Vol] 140 mmol/L Normal 136-145 [facility] Comment on above: Performed By: #### P OCGLUC #### [facility] [address] [place] [address] Dr. Luis Carlos Fletcher Urea nitrogen [Mass/Vol] 9.0 mg/dL Normal 7.0-18.0 [facility] Comment on above: Performed By: #### P OCGLUC #### [facility] [address] [place] [address] Dr. Luis Carlos Fletcher Urea nitrogen/Creatinine [Mass ratio] 12.5 mg/mg Normal [facility] Comment on above: Performed By: #### P OCGLUC #### [facility] [address] [place] [address] Dr. Luis Carlos Fletcher RESPIRATORY PANEL PLUSon Adenovirus Not detected Normal NOT DETECTED [facility] Comment on above: Performed By: #### R SPLUS #### [facility] [address] [place] [address] Dr. Luis Carlos Fletcher B. Parapertusis Not detected Normal NOT DETECTED [facility] [place] Comment on above: Performed By: #### R SPLUS #### [facility] [address] [place] [address] Dr. Luis Carlos Antoine. Pertussis Not detected Normal NOT DETECTED [facility] Comment on above: Performed By: #### R SPLUS #### [facility] [address] [place] [address] Dr. Luis Carlos Fletcher Chlamydia Pneumoniae Not detected Normal NOT DETECTED [facility] Comment on above: Performed By: #### R SPLUS #### [facility] [address] [place] [address] Dr. Luis Carlos Fletcher Coronavirus 229E Not detected Normal NOT DETECTED [facility] Comment on above: Performed By: #### R SPLUS #### [facility] [address] [place] [address] Dr. Luis Carlos Fletcher Coronavirus HKU1 Not detected Normal NOT DETECTED [facility] Comment on above: Performed By: #### R SPLUS #### [facility] [address] [place] [address] Dr. Luis Carlos Fletcher Coronavirus NL63 Not detected Normal NOT DETECTED [facility] Comment on above: Performed By: #### R SPLUS #### [facility] [address] [address] [address] Luis Carlos Fletcher Coronavirus OC43 Not detected Normal NOT DETECTED [facility] Comment on above: Performed By: #### R SPLUS #### [facility] [address] [address] [address] Luis Carlos Fletcher Influenza A H1 Not detected Normal NOT DETECTED [facility] Comment on above: Performed By: #### R SPLUS #### [facility] [address] [address] [address] Luis Carlos Fletcher Influenza A H1 2009 Not detected Normal NOT DETECTED [facility] Comment on above: Performed By: #### R SPLUS #### [facility] [address] [address] [address] Luis Carlos Fletcher Influenza A H3 Not detected Normal NOT DETECTED [facility] Comment on above: Performed By: #### R SPLUS #### [facility] [address] [address] [address] Luis Carlos Fletcher Influenza B Not detected Normal NOT DETECTED [facility] Comment on above: Performed By: #### R SPLUS #### [facility] [address] [address] [address] Luis Carlos Fletcher Metapneumovirus Not detected Normal NOT DETECTED [facility] Comment on above: Performed By: #### R SPLUS #### [facility] [address] [address] [address] Luis Carlos Fletcher Mycoplas. Pneumoniae Not detected Normal NOT DETECTED [facility] Comment on above: Performed By: #### R SPLUS #### [facility] [address] [address] [address] Luis Carlos Fletcher Parainfluenza 1 Not detected Normal NOT DETECTED [facility] Comment on above: Performed By: #### R SPLUS #### [facility] [address] [address] [address] Luis Carlos Fletcher Parainfluenza 2 Not detected Normal NOT DETECTED [facility] Comment on above: Performed By: #### R SPLUS #### [facility] [address] [place] [address] Dr. Luis Carlos Fletcher Parainfluenza 3 Not detected Normal NOT DETECTED [facility] Comment on above: Performed By: #### R SPLUS #### [facility] [address] [place] [address] Dr. Luis Carlos Fletcher Parainfluenza 4 Not detected Normal NOT DETECTED [facility] Comment on above: Performed By: #### R SPLUS #### [facility] [address] [place] [address] Dr. Luis Carlos Fletcher Rhino/Enterovirus Not detected Normal NOT DETECTED [facility] Comment on above: Performed By: #### R SPLUS #### [facility] [address] [place] [address] Dr. Luis Carlos Fletcher RP2 Header 1 RESPIRATORY PANEL: VIRUSES Normal [facility] Comment on above: Performed By: #### R SPLUS #### [facility] [address] [place] [address] Dr. Luis Carlos Fletcher RP2 Header 2 RESPIRATORY PANEL: BACTERIA Normal [facility] Comment on above: Performed By: #### R SPLUS #### [facility] [address] [place] [address] Dr. Luis Carlos Fletcher RSV Not detected Normal NOT DETECTED [facility] Comment on above: Performed By: #### R SPLUS #### [facility] [address] [place] [address] Dr. Luis Carlos Fletcher SARS-CoV-2 (COVID-19) RNA AVRIL+probe Ql (Unsp spec) Not detected Normal NOT DETECTED [facility] Comment on above: Performed By: #### R SPLUS #### [facility] [address] [place] [address] Dr. Luis Carlos Fletcher TROPONIN, HIGH SENSITIVITYon 06-12-2022 HSTROP 9.5 pg/mL Normal 4.0-76.1 [facility] Comment on above: Result Comment: CUT- OFF POINTS HAVE BEEN ESTABLISHED BASED ON THE FOURTH UNIVERSAL DEFINITIONS OF MYOCARDIAL INFARCTION. THE UPPER REFERENCE LIMIT (URL) OF TROPONIN, DEFINED THE 99TH PERCENTILE OF cTnI DISTRIBUTION IN A REFERENCE POPULATION, HAS BEEN CONFIRMED THE DECISION THRESHOLD FOR OR DIAGNOSIS. Performed By: #### P OCGLUC #### [facility] [address] [address] [address] Luis Carlos Fletcher XR CHEST 1 Von 06-12-2022 XR CHEST 1 V EXAMINATION: XR CHES T 1 V HISTORY: SHORTNESS OF BREATH COMPARISON: No relevant comparison available. FINDINGS: LUNGS: No significant pulmonary parenchymal abnormalities. VASCULATURE: No increased pulmonary vasculature. PLEURA: No pneumothorax, effusion, or pleural thickening. CARDIAC: No cardiomegaly or cardiac silhouette abnormality. MEDIASTINUM: No visible mass or adenopathy. BONES: No fracture or visible bone lesion. OTHER: Negative. IMPRESSION: 1. No acute cardiopulmonary process. Electronically authenticated by: ERIK CARRION Date: 2022-06-12 16:59 Normal [facility] Vital Signs Date Time Vital Sign Value Performing Clinician Facility 11-17-2022 13:41-0400 Body temperature 37.0 {degrees_C} Eber Lim Work Phone: [facility] Work Phone: Comment on above: NOTE: PATIENT RESULTS ARE NOT CORRECTED FOR TEMPERATURE. 11-17-2022 13:41-0400 SaO2% (BldA) [Mass fraction] 97 % Eber Lim Work Phone: [facility] Work Phone: Encounters Encounter Date Encounter Type Care Provider Facility Start: 11-21-2022 Chart Update Eber Lim Work Phone: [facility] Work Phone: Start: 11-17-2022 Patient encounter procedure Eber Lim Work Phone: [facility] Work Phone: Start: 11-17-2022 ambulatory DO JANEL Palacios acility:[facility] Start: 10-26-2022 AUDIT Janel Neville DO Work Phone: [facility] Work Phone: Start: 07-10-2022 End: 07-10-[address] EBER LIM Facility:[facility] Start: 06-12-2022 End: 06-19-2022 Evaluation and management of inpatient DR EBER LIM Facility:[facility] Plan of Treatment Date Care Activity Detail Author Start: 11-10-2022 PST, Provider: CECI MANLEY [facility]UL[facility], Status: Pen, Time: 2:30 PM PST, Provider: CECI BOLMAILE [facility]TH [facility],PULM, Status: Pen, Time: 2:30 PM [facility] Work Phone: Start: 11-10-2022 PFT, Provider: CECI MANLEY 6TH FLR PFT RM 2,PULM, Status: Pen, Time: 1:30 PM PFT, Provider: [facility] [place] [facility] 6TH FLR PFT RM 2,PULM, Status: Pen, Time: 1:30 PM [facility] Work Phone: Start: 11-10-2022 ABG, Provider: CECI BOLMAILE 6TH FLR PFT RM 2,PULM, Status: Pen, Time: 1:15 PM ABG, Provider: [facility] BOLMAILE 6TH FLR PFT RM 2,PULM, Status: Pen, Time: 1:15 PM [facility] Work Phone: Payers Date Payer Category Payer Medicare [id number] 1950 Unknown [id number] 1950 Unknown [id number] 1950 Unknown [id number] 1950 Unknown [id number] Unknown MEDICARE Summary Purpose Family History No Family History Records FoundNo Family History Records Found Advance Directives No Advanced Directives Records FoundNo Advanced Directives Records Found Additional Source Comments (unrecognized sect ion and content) No Status Records FoundNo Status Records Found INFORMATION SOURCE (unrecogn ized section and content) DATE CREATED AUTHOR 07/12/2022 [facility] DATE CREATED AUTHOR AUTHOR'S SHERI ANNE 11/22/2022 [facility] FOR RECORDS PERTAINING TO PATIENTS WHO ARE OR HAVE BEEN ENROLLED IN A CHEMICAL DEPENDENCY/SUBSTANCEABUSE PROGRAM, SOME INFORMATION MAY BE OMITTED. This clinical summary was aggregated from multiple sources. Caution should be exercised in using it in the provision of clinical care. This summary normalizes information from multiple sources, and as a consequence, information in this document may materially change the coding, format and clinical context of patient data. In addition, data may be omitted in some cases. CLINICAL DECISIONS SHOULD BE BASED ON THE PRIMARY CLINICAL RECORDS. [facility] [employer] provides no warranty or guarantee of the accuracy or completeness of information in this document.
--- NOTE | 2023-06-08 10:38 | CT_ITS ---
[address] [address] Patient Name: CALLI LOUIE MRN: [id number] date: 1950 Sex: M Assigned Patient Location: CT Current Patient Location: CT Accession/Order Number: [id number] Exam Date: 06/08/2023 10:34 Report Date: 06/08/2023 14:54 At the request of: MANSOOR BLACKBURN Procedure: CT chest wo con EXAMINATION: CT chest wo con HISTORY: Abnormal CT Scan Lung R91.8 COMPARISON: CT chest 02/09/2023 TECHNIQUE: Multi-planar CT images were obtained without and/or with IV contrast as indicated by examination type. Axial, Coronal, and Sagittal images. Dose reduction techniques were achieved by using automated exposure control and/or adjustment of mA and/or kV according to patient size and/or use of iterative reconstruction technique. FINDINGS: LUNGS: Moderate emphysematous changes. Clearing of previously seen infiltrates/opacities. PLEURA: No mass, effusion, or pneumothorax. VASCULATURE: No abnormality. JD: No mass or adenopathy. MEDIASTINUM: No mass or adenopathy. CARDIAC: No enlargement, pericardial thickening, or significant calcification. AORTA: No aneurysm or dissection. CHEST WALL: No mass or axillary adenopathy. BONES: Stable degenerative changes. LIMITED ABDOMEN: No suspicious findings Limited images of the upper abdomen. OTHER: Negative. CT/CT chest wo con IMPRESSION: 1. Clearing of previously seen pulmonary infiltrates and opacities. No suspicious findings. 2. Moderate emphysematous changes. Electronically authenticated by: ERIK CARRION Date: 06/08/2023 14:54
== END 2023-06-08 10:06 | disposition home or self-care (01) ==
LOC: CT 10:08
PROVIDERS: PCP Family Medicine; Visit Provider Internal Medicine
DX: R91.8 Other nonspecific abnormal finding of lung field (principal)
CPT/HCPCS: 71250

== ENCOUNTER 2025-02-18 12:24 | Inpatient (IN) | payer MEDICARE, SELFPAY ==
--- OUTSIDE RECORDS SUMMARY | 2023-12-19 11:30 | XMS_ITS ---
Author Organization The [facility] in [place] Address [address] [place] [address] Care Team Providers Care Screen Machine Operator Name Role Phone Eber Pompa DO Primary Care Provider Estiven Frankel Unavailable [phone] REASON FOR VISIT 6MO-COPD, O2 Encounters Encounter Location Date Provider Diagnosis Pulmonary Medicine [address] [place] [address] 12/19/2023 Estiven Can Plan Of Treatment No Information Progress Notes * Maxwell CRANE LDOB: (74 yo M)Acc No.[id number]:12/19/2023 UNLOCKED PROGRESS NOTE Follow Up Patient: Maxwell THOMAS :?Estvien Can DODOB:1950???Age:73 Y ???Sex:MaleDate:4Phone:[phone]:[address] [place], [place] [address]Pcp:Eber Pompa DO Subjective: * Chief Complaints: * 1 . 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 * Medical History: Objective: * Vitals: Assessment: Plan: * Treatment: * * Electronic signature of Estiven Can DO on 02/18/2025 at 01:04 PM ESTSign off status: PendingVisit Status:?R/S (Rescheduled) * Provider: Rae Can DO Date: Generated for Printing/Faxing/eTransmitting on:?02/18/2025 01:04 PM EST
--- OUTSIDE RECORDS SUMMARY | 2024-01-22 11:10 | XMS_ITS ---
Author Organization The [facility] in [place] Address [address] [place] [address] Care Team Providers Care Cell Liner Name Role Phone Eber Pompa DO Primary Care Provider Estiven Frankel Unavailable [phone] REASON FOR VISIT 6MO-COPD, O2 Encounters Encounter Location Date Provider Diagnosis Pulmonary Medicine [address] [place] [address] 01/22/2024 Estiven Can Plan Of Treatment No Information Progress Notes * Maxwell CRANE LDOB: (74 yo M)Acc No.[id number]:01/22/2024 UNLOCKED PROGRESS NOTE Follow Up Patient: Maxwell THOMAS :?Estiven Can DODOB:1950???Age:73 Y ???Sex:MaleDate:4Phone:[phone]:[address] [place], [place] [id number]:Eber Pompa DO Subjective: * Chief Complaints: * 1 . 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 * Medical History: Objective: * Vitals: Assessment: Plan: * Treatment: * * Electronic signature of Estiven Can DO on 02/18/2025 at 01:04 PM ESTSign off status: PendingVisit Status:?R/S (Rescheduled) * Provider: Rae Can DO Date: 03/23/2023 Generated for Printing/Faxing/eTransmitting on:?02/18/2025 01:04 PM EST
--- OUTSIDE RECORDS SUMMARY | 2024-02-27 11:00 | XMS_ITS ---
Author Organization The [facility] in [place] Address [address] [place] [address] Care Team Providers Care Product Safety Technical Assistant Name Role Phone Eber Pompa DO Primary Care Provider Estiven Frankel Unavailable [phone] REASON FOR VISIT 6MO-COPD, O2 Encounters Encounter Location Date Provider Diagnosis Pulmonary Medicine [address] [place] [address] 02/27/2024 Estiven Can Plan Of Treatment No Information Progress Notes * Maxwell CRANE LDOB: (74 yo M)Acc No.[id number]:02/27/2024 UNLOCKED PROGRESS NOTE Follow Up Patient: Maxwell THOMAS :?Estiven Can DODOB:1950???Age:73 Y ???Sex:MaleDate:4Phone:[phone]:[address] [place], [place] [id number]:Eber Pompa DO Subjective: * Chief Complaints: * 1 . 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 * Medical History: Objective: * Vitals: Assessment: Plan: * Treatment: * * Electronic signature of Estiven Can DO on 02/18/2025 at 01:06 PM ESTSign off status: PendingVisit Status:?R/S (Rescheduled) * Provider: Rae Can DO Date: 04/29/2023 Generated for Printing/Faxing/eTransmitting on:?02/18/2025 01:06 PM EST
--- OUTSIDE RECORDS SUMMARY | 2024-03-26 11:15 | XMS_ITS ---
Author Organization The [facility] in [place] Address [address] [place] [address] Care Team Providers Care Launch Leader Name Role Phone Eber Pompa DO Primary Care Provider Estiven Frankel Unavailable [phone] REASON FOR VISIT 6MO-COPD, O2 Encounters Encounter Location Date Provider Diagnosis Pulmonary Medicine [place] [address] [place] [address] 03/26/2024 Estiven Can Plan Of Treatment No Information Progress Notes * Maxwell CRANE LDOB: (74 yo M)Acc No.[id number]:03/26/2024 UNLOCKED PROGRESS NOTE Follow Up Patient: Maxwell THOMAS :?Estiven Can DODOB:1950???Age:73 Y ???Sex:MaleDate:03/26/2024Phone:[phone]:[address] [place], [place] [address]Pcp:Eber Pompa DO Subjective: * Chief Complaints: * 1 . 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 * Medical History: Objective: * Vitals: Assessment: Plan: * Treatment: * * Electronic signature of Estiven Can DO on 02/18/2025 at 01:05 PM ESTSign off status: PendingVisit Status:?R/S (Rescheduled) * Provider: Rae Can DO Date: 0 03/26/2024 Generated for Printing/Faxing/eTransmitting on:?02/18/2025 01:05 PM EST
--- OUTSIDE RECORDS SUMMARY | 2024-08-26 11:15 | XMS_ITS ---
Author Organization The [facility] in [place] Address [address] [place] [address] Care Team Providers Care Materials Mgmt Tech Name Role Phone Eber Pompa DO Primary Care Provider Estiven Frankel Unavailable [phone] REASON FOR VISIT 6MO-COPD, O2 Encounters Encounter Location Date Provider Diagnosis Pulmonary Medicine [place] [address] [place] [address] 08/26/2024 Estiven Can Plan Of Treatment No Information Progress Notes * Maxwell CRANE LDOB: (74 yo M)Acc No.[id number]:08/26/2024 UNLOCKED PROGRESS NOTE Follow Up Patient: Maxwell THOMAS :?Estiven Can DODOB:1950???Age:74 Y ???Sex:MaleDate:08/26/2024Phone:[phone]:[address] [place], [place] [address]Pcp:Eber Pompa DO Subjective: * Chief Complaints: * 1 . 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 * Medical History: Objective: * Vitals: Assessment: Plan: * Treatment: * * Electronic signature of Estiven Can DO on 02/18/2025 at 01:05 PM ESTSign off status: PendingVisit Status:?R/S (Rescheduled) * Provider: Rae Can DO Date: 0 08/26/2024 Generated for Printing/Faxing/eTransmitting on:?02/18/2025 01:05 PM EST
[2025-02-18] VITALS (33 sets, daily range): BP systolic 90–120; BP diastolic 62–86; PULSE 57–106; TEMP 36.7–36.8; O2SAT 79–97; BMI 25.5; BMI 23.2
--- NOTE | 2025-02-18 12:42 | ECG_ITS ---
[facility] Test Date: 2025-02-18 Pat Name: CALLI LOUIE Department: Room: - Gender: Male Debrander: : 1950 Requested By: 1030 Order Number: [id number] Reading MD: VIKI PRASAD M.D. Measurements Intervals [place] Rate: 94 P: 90 IN: 146 QRS: 77 QRSD: 102 T: 85 QT: 330 QTc: 382 Interpretive Statements 1100 Sinus rhythm 9110 normal ECG Compared to ECG 07/10/2022 11:46:07 No significant changes Electronically Signed On 02-18-2025 19:51:19 EST by VIKI PRASAD M.D.
--- NOTE | 2025-02-18 12:42 | XR_ITS ---
The [address] [address] Patient Name: CALLI LOUIE MRN: [id number] date: 1950 Sex: M Assigned Patient Location: ED.MAIN Current Patient Location: ED.MAIN Accession/Order Number: [id number] Exam Date: 02/18/2025 13:18 Report Date: 02/18/2025 13:36 At the request of: ADARSH JUNIOR MD Procedure: XR chest 1V Single view chest: CLINICAL HISTORY: SOB COMPARISON: CT chest 06/08/2023 FINDINGS: The heart is normal in size. Left lower lobe airspace disease. Relatively clear. No pneumothorax or free air. IMPRESSION: LEFT LOWER LOBE AIRSPACE DISEASE. X-RAY FOLLOW-UP IS RECOMMENDED TO ENSURE RESOLUTION. Impression dictated by: Balbir Pereira Jr., D.ODelvis 02/18/2025 1:36 PM Dictation Location: [place] [address] Electronically authenticated by: [id number] Y Date: 02/18/2025 13:36
--- NOTE | 2025-02-18 12:42 | ED.GENADUL1 ---
HPI HPI - General Adult General Chief complaint: Shortness of Breath/Dyspnea Stated complaint: SOB Time Seen by Provider: 02/18/25 12:37 Source: patient and other Source information: ems Mode of arrival: ambulance Limitations: physical limitation History of Present Illness HPI narrative: 74-year-old male presented by squad for difficulty breathing. He has a history of COPD and quit smoking 3 years ago. He has had trouble he states for 6 months but worse in the past few days. He has been coughing up a small amount of yellow phlegm. No hemoptysis or known fever. He was given aerosol treatment by squad and route. Related Data Home Medications ?Medication ?Instructions ?Recorded ?Confirmed amlodipine 5 mg tablet 5 mg PO QAM 02/18/25 02/18/25 budesonide 0.5 mg/2 mL suspension 0.5 mg inhalation Q12H 02/18/25 02/18/25 for nebulization escitalopram oxalate 10 mg tablet 10 mg PO DAILY 02/18/25 02/18/25 hydroxyzine HCl 25 mg tablet 25 mg PO Q6H PRN anxiety 02/18/25 02/18/25 ipratropium 0.5 mg-albuterol 3 mg 3 ml inhalation Q6H PRN shortness 02/18/25 02/18/25 (2.5 mg base)/3 mL nebulization of breath or wheezing soln montelukast 10 mg tablet 10 mg PO .qhs 02/18/25 02/18/25 Allergies Allergy/AdvReac Type Severity Reaction Status Date / Time No Known Drug Allergies Allergy Verified 02/18/25 12:37 Review of Systems ROS Narrative A ten point review of systems is negative except as noted above. PFSH PFSH Social History Little interest or pleasure in doing things: not at all Feeling down, depressed, or hopeless: not at all Exam Narrative Exam Narrative: Nurses note and vital signs reviewed General:The patient appears mildly dyspneic. He is in no acute distress Skin:Warm, dry, no pallor noted.There is no rash noted. Head:Normocephalic, atraumatic Eye: Normal conjunctiva, no drainage Ears, Nose, Mouth, and Throat: oral mucosa is moist. Nares patent. Cardiovascular:Regular Rate and Rhythm Respiratory: Breath sounds are diminished but equal bilaterally. Back:non-tender GI: Soft and nontender Musculoskeletal: The patient has no evidence of calf tenderness, no pitting edema, symmetrical pulses noted bilaterally Neurological:A&O, normal speech Psychiatric:Cooperative Constitutional Vital Signs, click to edit/add: Last Vital Signs Temp 98.2 F 02/18/25 12:30 Pulse 92 H 02/18/25 14:10 Resp 23 H 02/18/25 14:10 BP 100/86 02/18/25 14:00 Pulse Ox 94 L 02/18/25 14:10 O2 Del Method Room Air 02/18/25 13:28 O2 Flow Rate 3 02/18/25 13:28 Course Vital Signs Vital signs: Vital Signs Pulse Oximetry 91 L 02/18/25 12:27 Temperature 98.2 F 02/18/25 12:30 Pulse Rate 92 H 02/18/25 14:10 Respiratory Rate 23 H 02/18/25 14:10 Blood Pressure 100/86 02/18/25 14:00 Pulse Oximetry 94 L 02/18/25 14:10 Oxygen Delivery Method Room Air 02/18/25 13:28 Oxygen Delivery Flow Rate 3 02/18/25 13:28 Medical Decision Making MDM Narrative Medical decision making narrative: The patient has pneumonia and an elevated WBC of 33,000. Blood cultures were obtained and he was given IV Rocephin and Zithromax. Lactic acid is normal. BUN and creatinine are elevated and he is given IV fluids. Findings are discussed with the patient and his daughter who is requested social media director and social media director has seen the patient here in the emergency department. Daughter is concerned about long-term care for him. He is being admitted to the hospital. Treatment diagnosis and disposition were discussed thoroughly. Differential Diagnosis Differential Diagnosis: Pneumonia, COVID, influenza, COPD, dehydration Lab Data Lab results reviewed: Yes I reviewed the patient's lab results Labs: Lab Results 02/18/25 02/18/25 Range/Units 12:45 13:00 WBC 33.7 H* (4.0-11.0) 10^3/uL RBC 4.65 L (4.70-6.10) 10^6/uL Hgb 13.0 L (14.0-18.0) g/dL Hct 39.1 L (42.0-54.0) % MCV 84.1 (80.0-94.0) fL MCH 28.0 (25.9-34.0) pg MCHC 33.2 (29.9-35.2) g/dL RDW 14.4 (11.0-15.0) % Plt Count 340 (150-450) 10^3/uL MPV 10.5 (9.5-13.5) fL Neut % (Auto) Not Reportable Lymph % (Auto) Not Reportable Hartley % (Auto) Not Reportable Eos % (Auto) Not Reportable Baso % (Auto) Not Reportable Neut # (Auto) Not Reportable Lymph # (Auto) Not Reportable Hartley # (Auto) Not Reportable Eos # (Auto) Not Reportable Baso # (Auto) Not Reportable Abs Immat Gran (auto) Not Reportable Seg Neuts % (Manual) 96.0 H (43.0-75.0) Band Neutrophils % 2.0 (0-5) % Lymphocytes % (Manual) 2.0 L (20.5-60.0) % Monocytes % (Manual) 0.0 L (1.7-12.0) % Eosinophils % (Manual) 0.0 L (0.9-7.0) % Basophils % (Manual) 0.0 L (0.2-2.0) % Imm/Tot Granulo (auto) Not Reportable Neutrophils # (Manual) 32.35 H (1.4-6.5) 10^3/uL Band Neutrophils # 0.7 H (0.0-0.3) 10^3/uL Lymphocytes # (Manual) 0.67 L (1.20-3.80) 10^3/uL Monocytes # (Manual) 0.00 L (0.30-0.80) 10^3/uL Eosinophils # (Manual) 0.00 (0.00-0.70) 10^3/uL Basophils # (Manual) 0.00 (0.00-0.10) 10^3/uL Sodium 133 L (136-145) mmol/L Potassium 4.1 (3.5-5.1) mmol/L Chloride 96 L (98-107) mmol/L Carbon Dioxide 33.9 H (21.0-32.0) mmol/L Anion Gap 7.2 BUN 88.0 H* (7.0-18.0) mg/dL Creatinine 2.10 H (0.70-1.30) mg/dL Est GFR ( Amer) 38 L (>=60 mL/min/1.73m^2) Est GFR (Non-Af Amer) 31 L (>=60 mL/min/1.73m^2) BUN/Creatinine Ratio 41.9 Glucose 115 H (74-106) mg/dL Lactate 1.5 (0.4-2.0) mmol/L Calcium 9.0 (8.5-10.1) mg/dL Troponin I High Sens 7.1 (4.0-76.1) pg/mL Influenza Type A Ag Negative Influenza Type B Ag Negative SARS-CoV-2 Ag (CV2AG) Negative (NEGATIVE) Imaging Data Chest x-ray: Radiologist's impression: IMPRESSION: LEFT LOWER LOBE AIRSPACE DISEASE. X-RAY FOLLOW-UP IS RECOMMENDED TO ENSURE RESOLUTION. Impression dictated by: Balbir Pereira Jr., D.O. 02/18/2025 1:36 PM ECG Data Attestation: I personally reviewed and interpreted this ECG as follows: (EKG on my interpretation shows sinus rhythm with a rate of 94 no acute change) Discharge Plan Discharge Chief Complaint: Shortness of Breath/Dyspnea Clinical Impression: Pneumonia, Acute kidney injury Patient Disposition: Admitted As Inpatient Time of Disposition Decision: 14:43 Condition: Fair
[2025-02-18] MEDS: 0.9 % SODIUM CHLORIDE 1,000 ML 1000 ML IV ×2 (13:00→14:12)
--- OUTSIDE RECORDS SUMMARY | 2025-02-18 13:04 | XMS_ITS | Clinical Summary ---
Author Organization [facility] Address [address] [place] [address] Phone Care Team Providers Care Route Driver Name Role Phone Eber Pompa Primary Care Provider [phone] Social History Tobacco UseTypesPacks/DayYears UsedDateSmoking Tobacco: Never AssessedSex and Gender InformationValueDate RecordedSex Assigned at BirthNot on fileLegal Sex Male10/25/2022 11:19 AM EDTGender IdentityNot on fileSexual OrientationNot on file Plan of Treatment Health MaintenanceDue DateLast DoneCommentsCT Vxjayetsmkcr97/28/1951Colonoscopy 1950olorectal Cancer Pekgvhgqm10/28/1951FIT-DNA (Cologuard)1950FIT 1Lipid Panel1950 0024Sibgkufjxzsil31/28/1951Yearly Adult Physical 1950MMR Vaccines (1 of 1 - Standard series)1951Hepatitis C Screening 1968DTaP/Tdap/Td Vaccines (1 - Tdap)1972Pneumococcal Vaccine (1 of 1 - PCV)2000Zoster Vaccines (1 of 2)2000Influenza Vaccine (#1) 5COVID-19 Vaccine (1 - 2024- season)2024RSV High Risk: (Elderly (60+) or Population) (1 - 1-dose 75+ series)2025HIB VaccinesAged OutNo longer eligible based on patient's age to complete this topicHPV Vaccines Aged OutNo longer eligible based on patient's age to complete this topic Hepatitis A VaccinesAged OutNo longer eligible based on patient's age to complete this topicHepatitis B VaccinesAged OutNo longer eligible based on patient's age to complete this topicIPV VaccinesAged OutNo longer eligible based on patient's age to complete this topicMeningococcal VaccineAged OutNo longer eligible based on patient's age to complete this topicRotavirus VaccinesAged Out No longer eligible based on patient's age to complete this topic Care Teams Team MemberRelationshipSpecialtyStart DateEnd Date Eber Pompa DO [address] [place] [address] [facility]11/17/22
--- OUTSIDE RECORDS SUMMARY | 2025-02-18 13:05 | XMS_ITS | Encounter Summary ---
Author Organization [facility] Address [address] [place] [address] Care Team Providers Care Cordwood Cutter Name Role Phone Eber Pompa DO Primary Care Provider [phone] Estiven Can DO Unavailable [phone] Eber Pompa DO Unavailable [phone] Reason for Visit * ReasonCommentsMed Refill Encounter Details DateTypeDepartmentCare Team (Latest Contact Info)Rebkkoyymsa60/21/2025Refill [facility] [address] [facility] [address] [place] [address] Eber Pompa, DO [address] [place] [address] Allergic rhinitis, unspecified seasonality, unspecified trigger Social History Tobacco UseTypesPacks/DayYears UsedDateSmoking Tobacco: YrihunXkzisbialw970Jenq: 2022Smokeless Tobacco: FormerAlcohol UseStandard Drinks/WeekCommentsNever0 (1 standard drink = 0.6 oz pure alcohol)B1300 Health LiteracyAnswerDate RecordedHow often do you need to have someone help you when you read instructions, pamphlets, or other written material from your doctor or pharmacy?Always 09/01/2024Humiliation, Afraid, Rape, and Kick questionnaireAnswerDate Recorded Within the last year, have you been afraid of your partner or ex-partner?No 09/01/2024Within the last year, have you been humiliated or emotionally abused in other ways by your partner or ex-partner?No09/01/2024Within the last year, have you been kicked, hit, slapped, or otherwise physically hurt by your partner or ex-partner?No09/01/2024Within the last year, have you been raped or forced to have any kind of sexual activity by your partner or ex-partner?No09/01/2024 Social Connection and Isolation PanelAnswerDate RecordedIn a typical week, how many times do you talk on the phone with family, friends, or neighbors?Never 09/01/2024How often do you get together with friends or relatives?Never 09/01/2024How often do you attend mosque or scientologist services?Never09/01/2024Do you belong to any clubs or organizations such as mosque groups, unions, [employer] or athletic groups, or school groups?Patient lsqrqooy52/16/2025How often do you attend meetings of the clubs or organizations you belong to?Patient hpdxlupn65/16/2025re you , , , , never , or living with a partner?Dgauqlg6909/01/2024UDIT-CAnswerDate RecordedQ1: How often do you have a drink containing alcohol?Never09/01/2024Q2: How many drinks containing alcohol do you have on a typical day when you are drinking?Patient does not drink09/01/2024Q3: How often do you have six or more drinks on one occasion?Never09/01/2024Overall Financial Resource Strain (CARDIA)AnswerDate RecordedHow hard is it for you to pay for the very basics like food, housing, medical care, and heating?Hard09/01/2024PHQ-2AnswerDate RecordedPatient Health Questionnaire-2 Xfhcr442[facility] [place] of Occupational Health - Occupational Stress QuestionnaireAnswerDate RecordedDo you feel stress - tense, restless, nervous, or anxious, or unable to sleep at night because yourmind is troubled all the time - these days?Very much09/01/2024Exercise Vital SignAnswer Date RecordedOn average, how many days per week do you engage in moderate to strenuous exercise (like a brisk walk)?1 day09/01/2024On average, how many minutes do you engage in exercise at this level?0 min09/01/2024Hunger Vital Sign AnswerDate RecordedWithin the past 12 months, you worried that your food would run out before you got the money to buymore.Sometimes true09/01/2024Within the past 12 months, the food you bought just didn't last and you didn't have money to get more.Sometimes true09/01/2024PRAPARE - TransportationAnswerDate Recorded In the past 12 months, has lack of transportation kept you from medical appointments or from getting medications?Yes09/01/2024In the past 12 months, has lack of transportation kept you from meetings, work, or from getting things needed for daily living?Yes09/01/2024Housing Stability Vital SignAnswerDate RecordedIn the last 12 months, was there a time when you were not able to pay the mortgage or rent on time?No09/01/2024In the past 12 months, how many times have you moved where you were living?t any time in the past 12 months, were you homeless or living in a nursing home (including now)?No09/01/2024Sex and Gender InformationValueDate RecordedSex Assigned at BirthNot on fileLegal EzqYrwv7505/31/2022 7:02 PM EDTGender IdentityNot on fileSexual OrientationNot on filedocumented as of this encounter Plan of Treatment DateTypeDepartmentCare Team (Latest Contact Info)Swcscqtvuus07/09/2025 11:00 AM ESTOffice Visit [facility] [address] [place] [address] Lowell Burns PA [address] [place] [address] 02/25/2025 1:40 PM ESTOffice Visit [facility] [address] [place] [address] Eber Pompa DO [address] [place] [address] documented as of this encounter Visit Diagnoses Diagnosis Allergic rhinitis, unspecified seasonality, unspecified trigger documented in this encounter Additional Health Concerns AssessmentNoted TimePHQ-9 Depression Total Score: 16009/09/2024 10:00 AM EDT documented as of this encounter Care Teams Team MemberRelationshipSpecialtyStart DateEnd Date Eber Pompa DO [address] [place] [address] PCP - GeneralFamily Medicine07/25/22 Eber Pompa DO [address] [place] [address] PCP - Lax[place]95/1/23 Estiven Can DO [address] [place] [address] Referring PhysicianPulmonary Disease06/08/23documented as of this encounter
--- OUTSIDE RECORDS SUMMARY | 2025-02-18 13:05 | XMS_ITS | Patient Health Record ---
Author Organization [facility] in [place] Address [address] [place] [address] Care Team Providers Care Small Business Sales Representative Name Role Phone Eber Pompa DO Primary Care Provider Estiven Frankel Unavailable [phone] Allergies No Known Allergies Reason For Referral No Information Medications Medication SIG (Take, Route, Frequency, Duration) Notes Start Date End Date Status amLODIPine Besylate 5 MG 1 tablet Orally Once a day ActiveNystatin 489308 UNIT/ML5mL orally, swish & swallow QID; Duration: 10 days 12/13/2022Not-TakingBrovana 15 MCG/2ML2 mL Inhalation Twice a dayNot-TakingDeep Sea Nasal [place]ridge 0.65 %as directed NasallyActiveBudesonide 0.5 MG/2ML1 mL Inhalation Twice a day; Duration: 30 daysActiveYupelri 175 MCG/3ML3 mL Inhalation Once a dayNot-TakingFluticasone Propionate 50 MCG/ACT1 spray in each nostril Nasally Once a dayActiveEscitalopram Oxalate 10 MGTAKE 1 TABLET BY MOUTH IN THE MORNING Oral; Duration: 30 DaysActivehydrOXYzine HCl 25 MG1 tablet at bedtime as needed Orally Once a dayActiveguaiFENesin ER 600 MG1 tablet as needed Orally every 12 hrsActiveLORazepam 0.5 MGTAKE 1 TABLET BY MOUTH EVERY 8 HOURS NEEDED FOR ANXIETY FOR UP TO 10 DAYS Oral; Duration: 10 DaysActiveIpratropium- Albuterol 0.5-2.5 (3) MG/3ML3 mL as needed Inhalation every 6 hrs; Duration: 30 daysActiveMontelukast Sodium 10 MG1 tablet Orally Once a dayActive Immunizations Vaccine Route Administration Date Status Comme nts Pneumococcal (Prevnar 20) Unknown 06/08/2023 Administer ed Social History Tobacco Use: Social History Observation Description Date Details (start date - stop date) Former Smoker NA - NA Tobacco Control (Standard) Question Answer Notes Tobacco use: Former smoker How long has it been since you last smoked?1-5 yearsAdditional Findings: Tobacco khw-osnqVc-bygmdohg cigarette smoker (10-19/day) Problems Problem Type SNOMED Code ICD Code Onset Dates Problem Status W/U Status Risk Notes Problem Atherosclerosis of c oronary artery (696526273) Coronary atherosclerosis due to calcified coronary lesion (I25.84) ActiveconfirmedProblemCentrilobular emphysema (07516657)Centrilobular emphysema (J43.2)ActiveconfirmedProblemChronic respiratory failure (22444013)Chronic respiratory failure with hypoxia (J96.11)ActiveconfirmedProblemChronic respiratory failure (58260247)Chronic respiratory failure with hypercapnia (J96.12)ActiveconfirmedProblemAnorexia (28002504)Anorexia (R63.0)Activeconfirmed ProblemLong-term current use of inhaled steroid (445750583)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) use of inhaled steroids (Z79.51)ActiveconfirmedProblemMultiple pulmonary nodules (861881535)Multiple pulmonary nodules (R91.8)ActiveconfirmedProblemRhinitis sicca (71056439)Rhinitis sicca (J31.0)ActiveconfirmedProblemEx-tobacco user (finding) (972830084)History of tobacco abuse (Z87.891)ActiveconfirmedProblem Secondary pulmonary hypertension (69348825)Other secondary pulmonary hypertension (I27.29)ActiveconfirmedProblemCalcified lymph nodes (062372770) Calcified lymph nodes (I89.8)Activeconfirmed Vital Signs Heart Rate 86 /min 09/10/2024 Weight reported by patient Temperature 97.0 degrees Fahrenheit 09/10/2024 Weig ht reported by patient Respiratory Rate 20 /min 09/10/2024 Weight repo rted by patient Blood pressure diastolic 76 mm Hg 09/10/2024 Nikko ght reported by patient Oximetry 95 % 09/10/2024 Weight reported by patient Height 66 in 09/10/2024 Weight reported by patient Blood pressure systolic 124 mm Hg 09/10/2024 Weig ht reported by patient Weight 160.0 lbs 09/10/2024 Weight reported by patient BMI 25.82 kg/m2 09/10/2024 Weight reported by patient Encounters Encounter Location Date Provider Diagnosis [facility] [address] [place] [address] 09/10/[address] [facility] Centrilobular emphys justyna J43.2 ; Chronic respiratory failure with hypoxia J96.11 ; Calcified lymph nodes I89.8 ; jail (current) use of inhaled steroids Z79.51 and History of tobacco abuse Z87.891 [facility] [address] [place] [address] 02/19/[address] [facility] Pulmonary Medicine [address] [place] [address]/06/2025 [facility] [address] [place] [address] [facility] [place] [address]/07[facility] Assessments Encounter Date Diagnosis (ICD Code) Assessment Notes Treatment Notes Treatment Clinical Notes Section Notes 09/10/2024 Centrilobular emphysema (ICD-10 - J43.2) On DuoNeb & Pulmicort. Symptomatic. Cannot afford other treatments - if he can't afford Yupelrior Brovana, he definitely won't be able to afford Ohtuvayre or Dupixent. He was to contact last visit as the CT showed resolution of suspicious findings, but did not. He was instructed again to contact about EBV candidacy. Overall, there is not much else left available for the patient. 5Chronic respiratory failure with hypoxia (ICD-10 - J96.11) Patient remains on O2 ATC. 5Calcified lymph nodes (ICD-10 - I89.8)09/10/2024Long term (current) use of inhaled steroids (ICD-10 - Z79.51) Patient was counseled to rinse & gargle with water after inhaled corticosteroid use. 09/10/2024History of tobacco abuse (ICD-10 - Z87.891) He is due for LDCT, but deferring to if they order CT for EBV evaluation. 09/10/2024Other Plan Of Treatment No Information Insurance Providers Payer Name Payer Address Payer Phone Subscriber Number Group Number Insured Name Patient Relationship to Insured Coverage Start Date Coverage End Date [facility] [address] [address] [place] [address] [phone] [id number] Mariella Craneelf - patient is the insured Medical (General) History Medical History History ICD Code Centrilobular emphysema J43.2 Generalized anxiety disorder F41.1 Chronic respiratory failure with hypoxia J96.11 Chronic respiratory failure with hyperca pnia J96.12 Gastroesophageal reflux disease K21.9 Essential (primary) hypertension I10 Other secondary pulmonary hypertension I 27.29 Calcified lymph nodes I89.8 Coronary atherosclerosis due to calcifie d coronary lesion I25.84 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
--- OUTSIDE RECORDS SUMMARY | 2025-02-18 13:06 | XMS_ITS | Encounter Summary ---
Author Organization [facility] Address [address] [place] [address] Care Team Providers Care Parakeet Raiser Name Role Phone Eber Pompa DO Primary Care Provider Estiven Can DO Unavailable [phone] Eber Pompa DO Unavailable [phone] Reason for Visit * ReasonOnset DateCommentsDurable Medical Cbfkcreyt33/21/2025 Encounter Details DateTypeDepartmentCare Team (Latest Contact Info)Lwgcqexyqxn42/21/2025[facility]phone [facility] [address] [facility] [address] [place] [phone] Eber Pompa, [address] [facility] [address] [place], [place] [id number] Durable Medical Equipment Social History Tobacco UseTypesPacks/DayYears UsedDateSmoking Tobacco: ZqjbwtGdcjlqfnvz885Qmjh: 2022Smokeless Tobacco: FormerAlcohol UseStandard Drinks/WeekCommentsNever0 (1 standard [...] or relatives?Never 09/01/2024How often do you attend amish or rastafari services?Never09/01/2024Do you belong to any clubs or organizations such as amish groups, unions, fra[employer] NE[employer] or athletic groups, or school groups?Patient kebufcau51/16/2025How often do you attend meetings of the clubs or organizations you belong to?Patient hqtjvaub75/16/2025re you , , , , never , or living with a partner?Cgskaay5109/01/2024UDIT-CAnswerDate RecordedQ1: How often do you have a [...] medical care, and heating?Hard09/01/2024PHQ-2AnswerDate RecordedPatient Health Questionnaire-2 Oamnb143[facility] [employer] - Occupational Stress QuestionnaireAnswerDate RecordedDo you feel stress - tense, restless, nervous, or anxious, or unable to sleep at night because yourmind is troubled all the time - these days?Very much09/01/2024Exercise Vital SignAnswer Date RecordedOn average, how many days per week do you engage in moderate to strenuous exercise (like a brisk walk)?1 day06/16/2025On average, how many minutes do you engage [...] were you homeless or living in a prison (including now)?No09/01/2024Sex and Gender InformationValueDate RecordedSex Assigned at BirthNot on fileLegal PxkGlgs6305/31/2022 7:02 PM EDTGender IdentityNot on fileSexual OrientationNot on filedocumented as of this encounter Miscellaneous Notes * Telephone Encounter - Melba Sandoval - 02/06/2025 2:48 PM EST Pt's daughter called stating that she needs the nebulizer machine not the tubing and mask she needsthe actual machine and the the Pharmacy will not sell it to her unless she has a prescription for it and she needs it today. * Telephone Encounter - Clementine Cardoza - 02/06/2025 10:21 AM EST Multiple attempts and unable to LVM or speak with daughter. When I initially spoke with daughter she did not mention that patient was sick. She said she spoke with her insurance and if this order is sent to [facility] in [place] they would be able to get a brand new machine for only $50. * Telephone Encounter - Clementine Cardoza - 02/06/2025 10:07 AM EST Nebulizer machine order to [facility] in [place]. Daughter would like that done urgently. documented in this encounter Plan of Treatment DateTypeDepartmentCare Team (Latest Contact Info)Htzmvytgmgi18/09/2025 11:00 AM ESTOffice Visit [facility] [address] [place] [phone] Lowell Burns PA [address] [place] [address] 02/25/2025 1:40 PM ESTOffice Visit [facility] [address] [place] [phone] Eber Pompa DO [address] [place] [address] documented as of this encounter Visit Diagnoses Not on filedocumented in this encounter Additional Health Concerns AssessmentNoted TimePHQ-9 Depression Total Score: 16009/09/2024 10:00 AM EDT documented as of this encounter Care Teams Team MemberRelationshipSpecialtyStart DateEnd Date Eber Pompa DO [address] [place] [address] PCP - GeneralFamily Medicine07/25/22 Eber Pompa DO [address] [place] [address] PCP - Bjcvbk25/1/23 Estiven Can DO [address] [place] [address] Referring PhysicianPulmonary Disease06/08/23documented as of this encounter
--- OUTSIDE RECORDS SUMMARY | 2025-02-18 13:06 | XMS_ITS | CCD ---
Author Organization [facility] Care Team Providers Care Billet Cutter Name Role Phone DR EBER POMPA Primary Care Unavailable ADARSH JUNIOR Admitting Unavailable ADARSH JUNIOR Attending Sharon CARRION, DR CHRISTIANO Price Consulting Unavailable ADARSH JUNIOR Consulting Unavailable CAIRNA, DR IQBAL Primary Care Unavailable LALIT ., DR PAYNE Admitting Unavailable HOY ., DR PAYNE Attending Unavailable BRENDONY ., DR PAYNE Consulting Unavailable GROVER, DR ALEX Gann Consulting Unavailjohn CARRION, DR CHRISTIANO Price Consulting Unavailable BERE ., MANSOOR Consulting Unavailable CUONG YOST Consulting Unavailable SHAIKH Aurea ESCOBAR Consulting Unavailable MARCO HO Consulting Unavailable Eber Pompa Unavailable DO JANEL NEVILLE Attending Dr. Eber Wall Primary Care Unavaila DO JANEL Gregory Attending Dr. Eber Wall Primary Care UnavailEber Phelps DO Primary Care Provider Mansoor Blackburn MD Unavailable [phone] Mansoor Blackburn DO Unavailable CATERINA BURNS Attending Unavailable Eber Pompa DO Unavailable Medications Current Medications MedicationDrug Class(es)DatesSig (Normalized)Sig (Original)albuterol 0.833 mg/ml / ipratropium bromide 0.167 mg/ml inhalation solution (10 sources)Anticholinergic, beta2-Adrenergic AgonistStart: 01-01-2025 ipratropium-albuterol (Duo-Neb) 0.5-2.5 mg/3 mL nebulizer solution Indications: COPD (chronic obstructive pulmonary disease) with chronic bronchitis (HCC) USE 1 VIAL IN NEBULIZER EVERY 6 HOURS NEEDED FOR SHORTNESS OF BREATH 180 mL 01/01/2025 ActiveStart: 56-27-3195behtpiqhceh-albuterol (Duo-Neb) 0.5-2.5 mg/3 mL nebulizer solution Indications: COPD (chronic obstructive pulmonary disease) with chronic bronchitis (HCC) USE 1 AMPULE IN NEBULIZER EVERY 6 HOURS NEEDED FOR SHORTNESS OF BREATH 180 mL 3 09/09/2024 ActiveStart: 07-54-5722stsznmvxgpt- albuterol (Duo-Neb) 0.5-2.5 mg/3 mL nebulizer solution Indications: COPD (chronic obstructive pulmonary disease) with chronic bronchitis (HCC) USE 1 AMPULE IN NEBULIZER EVERY 6 HOURS NEEDED FOR SHORTNESS OF BREATH 180 mL 3 09/09/2024 ActiveStart: 08-19-2024 End: 76-03-1767dofzwbwpcza-albuterol (Duo-Neb) 0.5-2.5 mg/3 mL nebulizer solution Indications: COPD (chronic obstructive pulmonary disease) with chronic bronchitis (HCC) USE 1 AMPULE IN NEBULIZER EVERY 6 HOURS NEEDED FOR SHORTNESS OF BREATH 180 mL 08/19/2024 09/09/2024 Discontinued (Reorder)Start: 07-14-2024 ipratropium-albuterol (Duo-Neb) 0.5-2.5 mg/3 mL nebulizer solution Indications: COPD (chronic obstructive pulmonary disease) with chronic bronchitis (CMS/HCC) USE 1 AMPULE IN NEBULIZER EVERY 6 HOURS NEEDED FOR SHORTNESS OF BREATH 180 mL 07/14/2024 ActiveStart: 06-17-2024 End: 72-01-8225ntzl 1 dose by mouth every six hours as neededipratropium- albuterol (Duo-Neb) 0.5-2.5 mg/3 mL nebulizer solution Indications: COPD (chronic obstructive pulmonary disease) with chronic bronchitis (CMS/HCC) USE 1 VIAL IN NEBULIZER BY MOUTH EVERY 6HOURS NEEDED FOR SHORTNESS OF BREATH 180 mL 06/17/2024 07/14/2024 DiscontinuedamLODIPine 5 mg oral tablet (7 sources)Dihydropyridine Calcium Channel BlockerStart: 09-10-2023 End: 07-29-4716fxpi 1 tablet by mouth in the morningamLODIPine (Norvasc) 5 MG tablet Indications: Primary hypertension Take 1 tablet (5 mg) by mouth inthe morning. 90 tablet 3 08/19/2024 08/19/2025 Activebudesonide 0.25 mg/ml inhalation suspension (7 sources)CorticosteroidStart: 81-70-3027pgbnifmkwo (Pulmicort) 0.5 MG/2ML nebulizer solution Indications: COPD (chronic obstructive pulmonary disease) with chronic bronchitis (HCC) USE 1 VIAL IN NEBULIZER TWICE DAILY 300 mL 01/01/2025 ActiveStart: 88-24-0043ujslpesbnz (Pulmicort) 0.5 MG/2ML nebulizer solution Indications: COPD (chronic obstructive pulmonary disease) with chronic bronchitis (HCC) USE 1 VIAL IN NEBULIZER TWICE DAILY 300 mL 08/05/2024 Active Start: 48-41-7786zyaxhdmgci (Pulmicort) 0.5 MG/2ML nebulizer solution Indications: COPD (chronic obstructive pulmonary disease) with chronic bronchitis (CMS/HCC) inhale contents of 1 vial (2 MILLILITERS) in nebulizertwice a day 60 mL 5 05/16/2024 Activeescitalopram 10 mg oral tablet (7 sources)Serotonin Reuptake InhibitorStart: 00-87-2883ksqa 1 tablet by mouth in the morningescitalopram (Lexapro) 10 MG tablet Indications: Anxiety TAKE 1 TABLET BY MOUTH IN THE MORNING 90 tablet 3 06/03/2024 Idfter08 hr guaiFENesin 600 mg extended release oral tablet (9 sources)Start: 75-74-7309glso 1 tablet by mouth twice daily as needed guaiFENesin (Mucus Relief) 600 MG 12 hr tablet Indications: COPD (chronic obstructive pulmonary disease) with chronic bronchitis (HCC) TAKE 1 TABLET BY MOUTH TWICE DAILY NEEDED for thick sputum, drink plenty OF fluids. do not crush, chew, or split 60 tablet 02/15/2023 ActivehydrOXYzine hydrochloride 25 mg oral tablet (7 sources)AntihistamineStart: 76-53-2236xpig 1 tablet by mouth every six hours as neededhydrOXYzine HCl (Atarax) 25 MG tablet Indications: Allergic rhinitis, unspecified seasonality, unspecified trigger TAKE 1 TABLET BY MOUTH EVERY 6 HOURS NEEDED 480 tablet 10/08/2024 ActiveStart: 04-46-3588orrx 1 tablet by mouth every six hours as neededhydrOXYzine HCl (Atarax) 25 MG tablet Indications: Allergic rhinitis, unspecified seasonality, unspecified trigger TAKE 1 TABLET BY MOUTH EVERY 6 HOURS NEEDED 120 tablet 3 06/03/2024 Active LORazepam 0.5 mg oral tablet (7 sources)BenzodiazepineStart: 14-34-4125cctq 1 tablet by mouth every eight hours as needed for anxiety and anxiety and anxietyLORazepam (Ativan) 0.5 MG tablet Indications: Anxiety Take 1 tablet (0.5 mg) by mouth every 8 (eight) hours if needed for anxiety 30 tablet 12/11/2024 ActiveStart: 01-14-9765dapn 1 tablet by mouth every eight hours as needed for anxiety and anxiety and anxiety LORazepam (Ativan) 0.5 MG tablet Indications: Anxiety Take 1 tablet (0.5 mg) by mouth every 8 (eight) hours if needed for anxiety 30 tablet 05/09/2024 Active melatonin 10 mg disintegrating oral tablet (9 sources)Start: 04-67-2010Kersvvwny 10 MG tablet dispersible Indications: Primary insomnia 1 tablet at hs prn insomnia 30 tablet 2 09/15/2022 Active montelukast 10 mg oral tablet (7 sources)Leukotriene Receptor AntagonistStart: 75-25-6576qrqn 1 tablet by mouth in the eveningmontelukast (Singulair) 10 MG tablet Indications: Allergic rhinitis, unspecified seasonality, unspecified trigger TAKE 1 TABLET BY MOUTH IN THE EVENING 90 tablet 3 06/03/2024 Kzipic63 hr nicotine 0.875 mg/hr transdermal system (9 sources)Cholinergic Nicotinic AgonistStart: 80-25-1767lhclw 1 dose transdermal route at bedtimenicotine (Nicoderm CQ) 21 MG/24HR patch Indications: Tobacco use disorder Place 1 patch on the skineach morning and remove at hs 30 patch 2 08/24/2022 ActiveRespiratory Therapy Supplies (Nebulizer/Tubing/Mouthpiece) kit (1 source)Start: 67-39-1169Cgqhzdwgsxy Therapy Supplies (Nebulizer/Tubing/Mouthpiece) kit Indications: COPD (chronic obstructive pulmonary disease) with chronic bronchitis (HCC) Tubing, mouthpiece and mask for home nebulizer. 1 kit 1 01/27/2025 Active Problems Active Problems Problem ClassificationProblemDateDocumented DateEpisodic/ChronicAnxiety disorders (10 sources)Generalized anxiety disorder; Translations: [Anxiety]Onset: 999495-02-7022GkjimrwEuozmwu obstructive pulmonary disease and bronchiectasis (20 sources)Centrilobular emphysema; Translations: [Pulmonary emphysema]Onset: 07-35-1438BgchukmXylyqwov atherosclerosis and other heart disease (1 source)Atherosclerotic heart disease of [place] coronary artery without angina pectoris; Translations: [Athscl heart disease of [place] coronary artery w/o ang pctrs]Onset: 28-51-0228FznjzskCiicnjean hypertension (3 sources)Essential (primary) hypertension; Translations: [Essential hypertension]Onset: 664470-65-5554JujeogiZkdtyfmo; including migraine (1 source)Headache; including migraine; Translations: [HEADACHE UNSPECIFIED] Onset: 12-56-9208Vcmubngnmfc chest pain (4 sources)Chest pain, unspecified; Translations: [Other chest pain]Onset: 19-85-4944GpjdgtvhRenmq aftercare (1 source)Other mcc (current) drug therapy; Translations: [OTH PRISON CURRENT DRUG THERAPY]Onset: 46-37-1618MexickdkRkdhp gastrointestinal disorders (1 source)Constipation, unspecified; Translations: [CONSTIPATION UNSPECIFIED] Onset: 67-57-7755BisedreeYmmsi lower respiratory disease (1 source)Other nonspecific abnormal finding of lung field; Translations: [Other nonspecific abnormal findingof lung field]Onset: 83-38-7023OgnslovpCviss nervous system disorders (1 source)Anesthesia of skin; Translations: [ANESTHESIA OF SKIN]Onset: 00-61-1657HhpsuhioKrljw screening for suspected conditions (not mental disorders or infectious disease) (9 sources)Other specified abnormal findings of blood chemistry; Translations: [Patient encounter status]Onset: 500048-18-9437HwfvfwmqKsdbn upper respiratory disease (1 source)Chronic rhinitis; Translations: [CHRONIC RHINITIS]Onset: 06-29-2022 ChronicPulmonary heart disease (1 source)Pulmonary hypertension, unspecified; Translations: [PULMONARY HYPERTENSION UNSPECIFIED]Onset: 60-83-6835FmpgkkyClhdyedo codes; unclassified (1 source)Insomnia, unspecified; Translations: [INSOMNIA UNSPECIFIED]Onset: 36-72-0390EolehkxsPcgqjjnunwe failure; insufficiency; arrest (adult) (1 source)Chronic respiratory failure with hypercapnia; Translations: [CHRONIC RESP FAIL W/HYPERCAPNIA]Onset: 67-93-7933XpcdomqUuemflojknf failure; insufficiency; arrest (adult) (3 sources)Acute respiratory failure with hypoxia; Translations: [ACUTE RESPIRATORY FAIL W/HYPOXIA]Onset: 25-26-2397TheszzwaCqlzdvrej-related disorders (1 source)Nicotine dependence, cigarettes, uncomplicated; Translations: [NICOTINE DEPEND CIGARETTES UNCOMP]Onset: 33-91-6421RlihinzJhgtdtwuelrw (1 source)OTHER ACIDOSIS; Translations: [OTHER ACIDOSIS]Onset: 06-29-2022 Unclassified (1 source)CONTACT W/AND (SUSP) EXPOS COVID-19; Translations: [CONTACT W/AND (SUSP) EXPOS COVID-19]Onset: 84-32-7534Mvtqmxbhlzbf (1 source)Other specified disease of esophagus; Translations: [Other specified disease of esophagus]Onset: 46-66-4534Iinxoblhgdvl (1 source)Gastro-esophageal reflux dis with esophagitis, without bleed; Translations: [Gastro-esophageal reflux dis with esophagitis, without bleed] Onset: 73-16-4369Nuxtq infection (1 source)Zoster without complications; Translations: [ZOSTER WITHOUT COMPLICATIONS]Onset: 78-96-3122Zhjxuohg Past or Other Problems Problem ClassificationProblemDateDocumented DateEpisodic/ChronicMood disorders (8 sources)Mood disordersOnset: 06-08-2023 Resolved: Results Test NameValueInterpretationReference RangeFacilityCT CHEST WO CONon 06-08-2023 [place] [address] CT Scan Report Signed Patient: MAXWELL LOUIE III MR#: [id number] : 1950 Acct:[id number] Age/Sex: 73 / M ADM Date: 06/08/23 Loc: CT Attending Dr: Mansoor Blackburn D.O. Ordering Physician: Mansoor Blackburn D.O. Date of Service: 06/08/23 Procedure(s): CT chest wo con Accession Number(s): [id number] cc: EBER POMPA [facility] [place] [address] Patient Name: MAXWELL LOUIE MRN: [id number] date: 1950 Sex: M Assigned Patient Location: CT Current Patient Location: CT Accession/Order Number: [id number] Exam Date: 06/08/2023 10:34 Report Date: 06/08/2023 14:54 At the request of: MANSOOR BLACKBURN Procedure: CT chest wo con EXAMINATION: CT chest wo con HISTORY: Abnormal CT Scan Lung R91.8 COMPARISON: CT chest 02/09/2023 TECHNIQUE: Multi-planar CT images were obtained without and/or with IV contrast as indicated by examination type. Axial, Coronal, and Sagittal images. Dose reduction techniques were achieved by using automated exposure control and/or adjustment of mA and/or kV according to patient size and/or use of iterative reconstruction technique. FINDINGS: LUNGS: Moderate emphysematous changes. Clearing of previously seen infiltrates/opacities. PLEURA: No mass, effusion, or pneumothorax. VASCULATURE: No abnormality. JD: No mass or adenopathy. MEDIASTINUM: No mass or adenopathy. CARDIAC: No enlargement, pericardial thickening, or significant calcification. AORTA: No aneurysm or dissection. CHEST WALL: No mass or axillary adenopathy. BONES: Stable degenerative changes. LIMITED ABDOMEN: No suspicious findings Limited images of the upper abdomen. OTHER: Negative. CT/CT chest wo con IMPRESSION: 1. Clearing of previously seen pulmonary infiltrates and opacities. No suspicious findings. 2. Moderate emphysematous changes. Electronically authenticated by: CHRISTIANO CARRION Date: 06/08/2023 14:54 Dictated By: Christiano Carrion M.D. Signed By: 06/08/23 1450 DD/ 53 TD/TT: Reactor Kettle Operator:TBHRadiology, Radiologist, - 06/08/[address] [address] [address] Scan Report Signed Patient: MAXWELL LOUIE III MR#: [id number] : 1950 Acct:[id number] Age/Sex: 73 / M ADM Date: 06/08/23 Loc: CT Attending Dr: Mansoor Blackburn D.O. Ordering Physician: Mansoor Blackburn D.O. Date of Service: 06/08/23 Procedure(s): CT chest wo con Accession Number(s): [id number] cc: EBER POMPA [place] [address] Patient Name: MAXWELL LOUIE MRN: [id number] date: 1950 Sex: M Assigned Patient Location: CT Current Patient Location: CT Accession/Order Number: [id number] Exam Date: 06/08/2023 10:34 Report Date: 06/08/2023 14:54 At the request of: MANSOOR BLACKBURN Procedure: CT chest wo con EXAMINATION: CT chest wo con HISTORY: Abnormal CT Scan Lung R91.8 COMPARISON: CT chest 02/09/2023 TECHNIQUE: Multi-planar CT images were obtained without and/or with IV contrast as indicated by examination type. Axial, Coronal, and Sagittal images. Dose reduction techniques were achieved by using automated exposure control and/or adjustment of mA and/or kV according to patient size and/or use of iterative reconstruction technique. FINDINGS: LUNGS: Moderate emphysematous changes. Clearing of previously seen infiltrates/opacities. PLEURA: No mass, effusion, or pneumothorax. VASCULATURE: No abnormality. JD: No mass or adenopathy. MEDIASTINUM: No mass or adenopathy. CARDIAC: No enlargement, pericardial thickening, or significant calcification. AORTA: No aneurysm or dissection. CHEST WALL: No mass or axillary adenopathy. BONES: Stable degenerative changes. LIMITED ABDOMEN: No suspicious findings Limited images of the upper abdomen. OTHER: Negative. CT/CT chest wo con IMPRESSION: 1. Clearing of previously seen pulmonary infiltrates and opacities. No suspicious findings. 2. Moderate emphysematous changes. Electronically authenticated by: CHRISTIANO CARRION Date: 06/08/2023 14:54 Dictated By: Christiano Carrion M.D. Signed By: 06/08/23 1452 DD/ 3944 TD/TT: Reactor Kettle Operator: ASHLIE HealthcareRadiology Study observation (narrative)[facility] HealthcareCT CHEST WO CONOrdered By: Radiologist Radiology on 98-56-2893MVVH [employer] Work Phone: PET+CT Bone from skull base to mid-thigh W 18F-NaF IV on 36-27[place]4453[place] [address] PET Report Signed Patient: MAXWELL LOUIE III MR#: [id number] : 1950 Acct:[id number] Age/Sex: 72 / M ADM Date: 02/23/23 Loc: PETCT Attending Dr: Mansoor Blackburn D.O. Ordering Physician: Mansoor Blackburn D.O. Date of Service: 02/23/23 Procedure(s): PET skull to mid thigh Accession Number(s): [id number] cc: BEER POMPA ; Mansoor Blackburn D.O. [place] [address] Patient Name: MAXWELL LOUIE MRN: [id number] date: 1950 Sex: M Assigned Patient Location: PETCT Current Patient Location: PETCT Accession/Order Number: [id number] Exam Date: 02/23/2023 15:55 Report Date: 02/25/2023 16:46 At the request of: MANSOOR BLACKBURN Procedure: PET skull to mid thigh PET/CT: HISTORY: Lung nodules. COMPARISON: CT chest 02/09/2023, 11/17/2022, 06/12/2022. TECHNIQUE: The patient was injected with 11.76 mCi of F-18 fluorodeoxyglucose (FDG), and an emission scan was performed from the base of the skull to the mid thigh. Noncontrast CT was performed for attenuation correction and anatomic localization. The blood glucose level was 118 mg/dl. The uptake time was 49 minutes. The SUVmax of the mediastinum is 2.3. FINDINGS: HEAD AND NECK: There is a physiologic distribution of activity, with no hypermetabolic foci. CHEST: Previously noted 2.7 cm opacity at the left lung base posteriorly shows minimal tracer activity with SUV max 1.7. Adjacent areas of consolidation are also noted and appear non tracer avid and stable. There is no hypermetabolic mediastinal or hilar adenopathy. ABDOMEN AND PELVIS: There is a physiologic distribution of activity within the liver, spleen, adrenal glands, urinary tract and bowel, with no hypermetabolic foci. MUSCULOSKELETAL SYSTEM: There is a physiologic distribution of activity within the bone marrow, with no hypermetabolic foci. ADDITIONAL CT FINDINGS: There is moderate atherosclerotic calcification of the thoracoabdominal aorta, iliac and femoral arteries. There is mild to moderate emphysema. There are multiple diverticula in the sigmoid colon with no acute diverticulitis. The prostate gland is enlarged at 5 x 4.3 cm. There are moderate to severe multilevel degenerative changes of the spine. PET/PET skull to mid thigh IMPRESSION: 1. Irregular opacity in the posterior left lung base shows only mild tracer activity . There are adjacent stable non tracer avid foci of consolidation. This is likely benign in nature such as due to resolving pneumonia, atelectasis and/or scarring. Consider follow-up chest CT in [address] findings as described above. Electronically authenticated by: CHRISTIANO RESTREPO Date: 02/25/2023 16:46 Dictated By: Christiano Restrepo M.D. Signed By: 02/25/231647 DD/ 45 TD/TT: Reactor Kettle Operator:QIANAadiologayesha, Radiologist, - 02/27/2023 [place] [address] PET Report Signed Patient: MAXWELL LOUIE III MR#: [id number] : 1950 Acct:[id number] Age/Sex: 72 / M ADM Date: 02/23/23 Loc: PETCT Attending Dr: Mansoor Blackburn D.O. Ordering Physician: Mansoor Blackburn D.O. Date of Service: 02/23/23 Procedure(s): PET skull to mid thigh Accession Number(s): [id number] cc: EBER POMPA ; Mansoor Blackburn D.O. The [address] [address] Patient Name: MAXWELL LOUIE MRN: [id number] date: 1950 Sex: M Assigned Patient Location: PETCT Current Patient Location: PETCT Accession/Order Number: [id number] Exam Date: 02/23/2023 15:55 Report Date: 02/25/2023 16:46 At the request of: MANSOOR BLACKBURN Procedure: PET skull to mid thigh PET/CT: HISTORY: Lung nodules. COMPARISON: CT chest 02/09/2023, 11/17/2022, 06/12/2022. TECHNIQUE: The patient was injected with 11.76 mCi of F-18 fluorodeoxyglucose (FDG), and an emission scan was performed from the base of the skull to the mid thigh. Noncontrast CT was performed for attenuation correction and anatomic localization. The blood glucose level was 118 mg/dl. The uptake time was 49 minutes. The SUVmax of the mediastinum is 2.3. FINDINGS: HEAD AND NECK: There is a physiologic distribution of activity, with no hypermetabolic foci. CHEST: Previously noted 2.7 cm opacity at the left lung base posteriorly shows minimal tracer activity with SUV max 1.7. Adjacent areas of consolidation are also noted and appear non tracer avid and stable. There is no hypermetabolic mediastinal or hilar adenopathy. ABDOMEN AND PELVIS: There is a physiologic distribution of activity within the liver, spleen, adrenal glands, urinary tract and bowel, with no hypermetabolic foci. MUSCULOSKELETAL SYSTEM: There is a physiologic distribution of activity within the bone marrow, with no hypermetabolic foci. ADDITIONAL CT FINDINGS: There is moderate atherosclerotic calcification of the thoracoabdominal aorta, iliac and femoral arteries. There is mild to moderate emphysema. There are multiple diverticula in the sigmoid colon with no acute diverticulitis. The prostate gland is enlarged at 5 x 4.3 cm. There are moderate to severe multilevel degenerative changes of the spine. PET/PET skull to mid thigh IMPRESSION: 1. Irregular opacity in the posterior left lung base shows only mild tracer activity . There are adjacent stable non tracer avid foci of consolidation. This is likely benign in nature such as due to resolving pneumonia, atelectasis and/or scarring. Consider follow-up chest CT in [address] findings as described above. Electronically authenticated by: CHRISTIANO RESTREPO Date: 02/25/2023 16:46 Dictated By: Christiano Restrepo M.D. Signed By: 02/25/231647 DD/ 45 TD/TT: Reactor Kettle Operator: ASHLIE HealthcareRadiology Study observation (narrative)[facility] Bone from skull base to mid-thigh W 18F-NaF IVOrdered By: Radiologist Radiology on 67-48-4265KLJXMercy hospital springfield Work Phone: aRTERIAL BLOOD GAS,CO-OXon 62-06-5057SPHV EXCESS-BLOOD 4.2 mmol/LHigh-2.0 - 3.0[facility]Comment on above:Performed By: #### ABGC2 #### [facility] [address] [place], [place] [address]UONKQB, RTXFVGLXUX22.2 mmol/LHigh22.0 - 26.0[facility])Comment on above:Performed By: #### ABGC2 #### [facility] [address] [place], [place] [address]RZ HGB1.7 %AbnormalJefferson Stratford Hospital ([facility])Comment on above:Result Comment: REF VALUES NONSMOKERS 0.5-1.5% SMOKERS 0.5-10.0%Performed By: #### ABGC2 #### [facility] [address] [place], [place] [address]HNNFC HGB2.7 %Normal0.0 - 5.0[facility] Comment on above:Performed By: #### ABGC2 #### [facility] [address] [place], [place] [address]Qskeyxembv (Bld) [Mass/Vol]14.3 g/lIBemnjj68.5 - 17.5[facility]Comment on above:Performed By: #### ABGC2 #### [facility] [address] [place], [place] [address]YGJ HGB1.0 %Normal0.0 - 1.5[facility])Comment on above:Performed By: #### ABGC2 #### [facility] [address] [place], [place] [address]GTJ HGB94.6 %Kpjtkd00.0 - 98.0[facility] Comment on above:Performed By: #### ABGC2 #### [facility] [address] [place], [place] [address]Bstloo (Bld) [Partial pressure]74 mm[Hg]Low85 - 95[facility]Comment on above:Performed By: #### ABGC2 #### [facility] [address] [place], [place] [address]OBBTKVN AIMBYUVXSZQ39.0 degrees CNormalJefferson Strat[facility] ([facility])Comment on above:Result Comment: NOTE: PATIENT RESULTS ARE NOT CORRECTED FOR TEMPERATURE.Performed By: #### ABGC2 #### [facility] [address] [place], [place] [address]KRI[address]49 hyIwCiic83 - 42[facility]Comment on above:Performed By: #### ABGC2 #### [facility] [address] [place], [place] [address]oY (Bld)7.43 [pH]High7.38 - 7.42[facility] Comment on above:Performed By: #### ABGC2 #### [facility] [address] [place], [place] [address]KG[address] %Nmkpkc07 - 100[facility]Comment on above:Performed By: #### ABGC2 #### [facility] [address] [place], [place] [address]TJ Chest without for Brown Bronc Planningon 97-59-7078OP Chest without for Brown [facility] PlanningNormalMG-Pulm [facility] Work Phone: Laboratory - Chemistry and Chemistry - challengeon 55-26-1274Qvkc excess Calc (Bld) [Moles/Vol]4.2 mmol/Labove high threshold-2.0 - 3.0MG-Pulm [facility] [facility] Work Phone: Carboxyhemoglobin (BldA) [Mass fraction]1.7 %Abnormal MG-Pulm [facility] [facility] Work Phone: Comment on above:REF VALUESNONSMOKERS 0.5-1.5%SMOKERS 0.5-10.0%CO2 (Bld) [Partial pressure]44 mm[Hg]above high njnkvfhed17 - 42MG-Pulm [facility] [address] Work Phone: HCO3 (Bld) [Moles/Vol]29.2 mmol/Labove high threshold See BelowMG-Pulm Sleep-[employer] [address] Work Phone: Comment on above:Reference Range: 22.0 - 26.0 Methemoglobin (BldA) [Mass fraction]1.0 %0.0 - 1.5MG-Pulm [facility] Work Phone: Oxygen (Bld) [Partial pressure]74 mm[Hg]below low xycwegjup94 - 95MG-Pulm [facility] Work Phone: Oxyhemoglobin (BldA) [Mass fraction]94.6 %See BelowMG- [facility]m [facility] [facility] Work Phone: Comment on above:Reference Range: 94.0 - 98.0pH (Bld) 7.43 [pH]above high thresholdSee BelowMG-Pul[facility] [facility] Work Phone: Comlhgl on above:Reference Range: 7.38 - 7.42 Laboratory - Hematology and Cell countson [id number] (BldA) [Mass fraction]2.7 %0.0 - 5.0[facility] [facility] Work Phone: Hemoglobin (Bld) [Mass/Vol]14.3 g/dLSee BelowMG-Pul[facility] [facility] Work Phone: Comment on above:Reference Range: 13.5 - 17.5TH CT CHEST without FOR BROWN BRONC PLANNINGon [id number] CT CHEST without FOR BROWN BRONC PLANNINGMRN: [id number] Patient Name: MAXWELL LOUIE STUDY: TH CT CHEST WITHOUT FOR BROWN BRONC PLANNING; 11/17/2022 1:08 pm INDICATION: BLVR J43.9: COPD (chronic obstructive pulmonary disease) with emphysema. COMPARISON: None. ACCESSION NUMBER(S): [id number] ORDERING CLINICIAN: JANEL NEVILLE TECHNIQUE: Helical data [...] distal esophagus. Correlate with clinical findings of esophagitis/gastroesophageal reflux. 4. Atherosclerosis to include mild coronary artery calcifications. Please note that, the present study is not tailored for evaluation of coronary arteries. Critical Finding: New/enlarging lung nodule suspicious for cancer. Notification was initiated on 11/17/2022 at 4:15 pm by Eyad Au. (-YCF-) MACRO: None Electronically signed by: Adam ROSARIO [facility] AUTO DIFFon [id number] #0.0 103/ulNormal0.0-0.1[facility] CenterComment on above:Performed By: #### POCGLUC #### [facility] [address] [place] [address] Dr. Luis Carlos FletcherBasophils/100 WBC (Bld)0.8 %Normal0.2-2.0[facility] Comment on above:Performed By: #### POCGLUC #### [facility] [address] [place] [address] Dr. Luis Carlos Cowan #0.2 103/ulNormal0.0-0.7The [facility]burgComment on above: Performed By: #### POCGLUC #### [facility] [address] [place] [address] Dr. Luis Carlos Almazanosinophils/100 WBC (Bld)3.4 %Normal0.9-7.0[facility] Comment on above:Performed By: #### POCGLUC #### [facility] [address] [place] [address] Dr. Luis Carlos Almazanrythrocyte distribution width (RBC) [Ratio]13.2 %Hdcvss32.0-15.0 [facility] CenterComment on above:Performed By: #### POCGLUC #### [facility] [address] [place] [address] Dr. Luis Carlos FletcherHematocrit (Bld) [Volume fraction]45.6 %Ruxnly37.0-54.0[facility] CenterComment on above:Performed By: #### POCGLUC #### [facility] [address] [place] [address] Dr. Luis Carlos FletcherHemoglobin (Bld) [Mass/Vol]14.9 g/uZWyaupe17.0-18.0[facility] CenterComment on above:Performed By: #### POCGLUC #### [facility] [address] [place] [address] Dr. Luis Carlos Galeano #0.06 10e3/ulCritically high0.00-0.03[facility] Comment on above:Performed By: #### POCGLUC #### [facility] [address] [place] [address] Dr. Luis Carlos Galeano %1.2 %Critically high0.0-0.5The [facility]burgComment on above:Performed By: #### POCGLUC #### [facility] [address] [address] [address] Luis Carlos Gee #1.3 103/ulNormal1.2-3.8The [facility]burgComment on above:Performed By: #### POCGLUC #### [facility] [address] [place] [address] Dr. Luis Carlos Garzahocytes/100 WBC (Bld)24.9 %Ehzrle55.5-60.0The [facility]burgComment on above:Performed By: #### POCGLUC #### [facility] [address] [place] [address] Dr. Luis Carlos HeathUAL DIFF REQNONormalThe [facility]burgComment on above: Performed By: #### POCGLUC #### [facility] [address] [place] [address] Dr. Luis Carlos Tamayo (RBC) [Entitic mass]30.2 xuFyyfok77.9-34.0The [facility]burgComment on above:Performed By: #### POCGLUC #### [facility] [address] [place] [address] Dr. Luis Carlos Tamayo (RBC) [Mass/Vol]32.7 g/iQGlbinu23.9-35.2The [facility]burgComment on above:Performed By: #### POCGLUC #### [facility] [address] [place] [address] Dr. Luis Carlos Tamayo (RBC) [Entitic vol]92.5 uBKoowmk09.0-94.0The [facility]burgComment on above:Performed By: #### POCGLUC #### [facility] [address] [place] [address] Dr. Luis Carlos Jules #0.5 103/ulNormal0.3-0.8The [facility]burgComment on above:Performed By: #### POCGLUC #### [facility] [address] [address] [address] Luis Carlos FletcherMonocytes/100 WBC (Bld)9.2 %Normal1.7-12.0The [facility] Comment on above:Performed By: #### POCGLUC #### [facility] [address] [place] [address] Dr. Luis Carlos BabcockUT #3.0 103/ulNormal1.4-6.5The [facility]burgComment on above:Performed By: #### POCGLUC #### [facility] [address] [place] [address] Dr. Luis Carlos Babcockutrophils/100 WBC (Bld)60.5 %Ksalor39.0-75.0The [facility]burgComment on above:Performed By: #### POCGLUC #### [facility] [address] [place] [address] Dr. Luis Carlos FletcherPlatelet mean volume (Bld) [Entitic vol]9.6 fLNormal9.5-13.5The [facility]burgComment on above:Performed By: #### POCGLUC #### [facility] [address] [place] [address] Dr. Luis Carlos FletcherPLT153 103/rnKwxqgh001-437Vde [facility]burgComment on above: Performed By: #### POCGLUC #### [facility] [address] [place] [address] Dr. Luis Carlos FletcherRBC4.93 106/ulNormal4.70-6.10The [facility]burgComment on above:Performed By: #### POCGLUC #### [facility] [address] [place] [address] Dr. Luis Carlos FletcherWBC5.0 103/ulNormal4.0-11.0The [facility]burgComment on above: Performed By: #### POCGLUC #### [facility] [address] [place] [address] Dr. Luis Carlos FletcherPROF CHEM 8 (BAS METB)on 49-56-1837Lxego gap [Moles/Vol]6.1 mmol/LNormalThe [facility]burgComment on above:Performed By: #### HSTROPN #### [facility] [address] [address] [address] Luis Carlos FletcherCalcium [Mass/Vol]8.9 mg/dLNormal8.5-10.1The [facility] Comment on above:Performed By: #### HSTROPN #### [facility] [address] [address] [address] Luis Carlos FletcherChloride [Moles/Vol]100 mmol/VGoltye98-572Oxb [facility] Comment on above:Performed By: #### HSTROPN #### [facility] [address] [address] [address] Luis Carlos FletcherCO2 [Moles/Vol]35.6 mmol/LCritically high21.0-32.0The [facility]burgComment on above:Performed By: #### HSTROPN #### [facility] [address] [address] [address] Luis Carlos FletcherCreatinine [Mass/Vol]0.71 mg/dLNormal0.70-1.30The [facility]burgComment on above:Performed By: #### HSTROPN #### [facility] [address] [place] [address] Dr. Aldridge ChangEGFR-AF PAPUA NEW GUINEAN>60Normal>=60The [facility]burgComment on above:Performed By: #### HSTROPN #### [facility] [address] [place] [address] Dr. Luis Carlos AlmazanGFR-NON AF PAPUA NEW GUINEAN>60Normal>=60The [facility]burgComment on above:Performed By: #### HSTROPN #### [facility] [address] [address] [address] Luis Carlos FletcherGlucose [Mass/Vol]63 mg/dLCritically old30-116Nwk [facility]burgComment on above:Performed By: #### HSTROPN #### [facility] [address] [address] [address] Luis Carlos FletcherPotassium [Moles/Vol]4.7 mmol/LNormal3.5-5.1The [facility] Comment on above:Performed By: #### HSTROPN #### [facility] [address] [place] [address] Dr. Luis Carlos Schofielddium [Moles/Vol]137 mmol/GPdwojk516-825Fbj [facility] Comment on above:Performed By: #### HSTROPN #### [facility] [address] [place] [address] Dr. Luis Carlos Mccann nitrogen [Mass/Vol]11.0 mg/dLNormal7.0-18.0The [facility]burgComment on above:Performed By: #### HSTROPN #### [facility] [address] [place] [address] Dr. Luis Carlos Mccann nitrogen/Creatinine [Mass ratio]15.5 mg/mgNormalThe [facility]burgComment on above:Performed By: #### HSTROPN #### [facility] [address] [place] [address] Dr. Luis Carlos Aguirre, HIGH SENSITIVITYon 27-83-5434WZNOUB5.1 pg/mLNormal 4.0-76.1The [facility]burgComment on above:Result Comment: CUT-OFF POINTS HAVE BEEN ESTABLISHED BASED ON THE FOURTH UNIVERSAL DEFINITIONS OF MYOCARDIAL INFARCTION. THE UPPER REFERENCE LIMIT (URL) OF TROPONIN, DEFINED THE 99TH PERCENTILE OF cTnI DISTRIBUTION IN A REFERENCE POPULATION, HAS BEEN CONFIRMED THE DECISION THRESHOLD FOR [place] DIAGNOSIS.Performed By: #### HSTROPN #### [facility] [address] [place] [address] Dr. Luis Carlos FletcherHSTROP6.1 pg/mLNormal4.0-76.1The [facility]burgCom[facility] on above:Result Comment: CUT-OFF POINTS HAVE BEEN ESTABLISHED BASED ON THE FOURTH UNIVERSAL DEFINITIONS OF MYOCARDIAL INFARCTION. THE UPPER REFERENCE LIMIT (URL) OF TROPONIN, DEFINED THE 99TH PERCENTILE OF cTnI DISTRIBUTION IN A REFERENCE POPULATION, HAS BEEN CONFIRMED THE DECISION THRESHOLD FOR [place] DIAGNOSIS.Performed By: #### HSTROPN #### [facility] [address] [place] [address] Dr. Luis Carlos Agrawal CHEST 1 Von [id number] CHEST 1 VEXAMINATION: XR CHEST 1 V HISTORY: CHEST PAIN, UNSPECIFIED COMPARISON: [...] mild chronic interstitial changes. Electronically authenticated by: CHRISTIANO CARRION Date: 2022-07-10 12:39[facility] AUTO DIFFon 56-12-4701MHTB #0.0 103/ulNormal0.0-0.1The [facility]burgComment on above:Performed By: #### POCGLUC #### [facility] [address] [address] [address] Luis Carlos FletcherBasophils/100 WBC (Bld)0.2 %Normal0.2-2.0[facility] Comment on above:Performed By: #### POCGLUC #### [facility] [address] [address] [address] Luis Carlos Cowan #0.0 103/ulNormal0.0-0.7The [facility]burgComment on above: Performed By: #### POCGLUC #### [facility] [address] [address] [address] Luis Carlos Almazanosinophils/100 WBC (Bld)0.0 %Critically low0.9-7.0The [facility]burgComment on above:Performed By: #### POCGLUC #### [facility] [address] [address] [address] Luis Carlos Almazanrythrocyte distribution width (RBC) [Ratio]12.9 %Ugntwp64.0-15.0 The [facility]burgComment on above:Performed By: #### POCGLUC #### [facility] [address] [address] [address] Luis Carlos FletcherHematocrit (Bld) [Volume fraction]45.1 %Qykhbg81.0-54.0The [facility]burgComment on above:Performed By: #### POCGLUC #### [facility] [address] [place] [address] Dr. Luis Carlos FletcherHemoglobin (Bld) [Mass/Vol]14.7 g/bOHvuvxl97.0-18.0The [facility]burgComment on above:Performed By: #### POCGLUC #### [facility] [address] [place] [address] Dr. Luis Carlos Galeano #0.08 10e3/ulCritically high0.00-0.03The [facility] Comment on above:Performed By: #### POCGLUC #### [facility] [address] [place] [address] Dr. Luis Carlos Galeano %0.8 %Critically high0.0-0.5The [facility]burgComment on above:Performed By: #### POCGLUC #### [facility] [address] [place] [address] Dr. Luis Carlos Gee #0.4 103/ulCritically low1.2-3.8The [facility] Comment on above:Performed By: #### POCGLUC #### [facility] [address] [place] [address] Dr. Luis Carlos Garzahocytes/100 WBC (Bld)4.0 %Critically low20.5-60.0The [facility]burgComment on above:Performed By: #### POCGLUC #### [facility] [address] [place] [address] Dr. Luis Carlos HeathUAL DIFF REQNONormalThe [facility]burgComment on above: Performed By: #### POCGLUC #### [facility] [address] [place] [address] Dr. Luis Carlos Boucher (RBC) [Entitic mass]30.3 drFkblap67.9-34.0The [facility]burgComment on above:Performed By: #### POCGLUC #### [facility] [address] [place] [address] Dr. Luis Carlos Tamayo (RBC) [Mass/Vol]32.6 g/vUQjdawa30.9-35.2The [facility]burgComment on above:Performed By: #### POCGLUC #### [facility] [address] [place] [address] Dr. Luis Carlos Tamayo (RBC) [Entitic vol]93.0 yRKbnazf50.0-94.0The [facility]burgComment on above:Performed By: #### POCGLUC #### [facility] [address] [place] [address] Dr. Luis Carlos Jules #0.3 103/ulNormal0.3-0.8The [facility]burgComment on above:Performed By: #### POCGLUC #### [facility] [address] [place] [address] Dr. Luis Carlos Mccallumocytes/100 WBC (Bld)3.4 %Normal1.7-12.0The [facility] Comment on above:Performed By: #### POCGLUC #### [facility] [address] [place] [address] Dr. Luis Carlos Thompson #9.2 103/ulCritically high1.4-6.5The [facility] Comment on above:Performed By: #### POCGLUC #### [facility] [address] [place] [address] Dr. Luis Carlos Babcockutrophils/100 WBC (Bld)91.6 %Critically high43.0-75.0The [facility]burgComment on above:Performed By: #### POCGLUC #### [facility] [address] [place] [address] Dr. Luis Carlos Esteveslet mean volume (Bld) [Entitic vol]9.9 fLNormal9.5-13.5The [facility]burgComment on above:Performed By: #### POCGLUC #### [facility] [address] [place] [address] Dr. Luis Carlos FletcherPLT220 103/qiDtntnx713-639Owi [facility]burgComment on above: Performed By: #### POCGLUC #### [facility] [address] [address] [address] Luis Carlos FletcherRBC4.85 106/ulNormal4.70-6.10The [facility]burgComment on above:Performed By: #### POCGLUC #### [facility] [address] [address] [address] Luis Carlos FletcherWBC10.0 103/ulNormal4.0-11.0The [facility]burgComment on above:Performed By: #### POCGLUC #### [facility] [address] [address] [address] Luis Carlos FletcherPROF CHEM 8 (BAS METB)on 58-12-2236Rqqxb gap [Moles/Vol]2.4 mmol/LNormalThe [facility]burgComment on above:Performed By: #### POCGLUC #### [facility] [address] [address] [address] Luis Carlos FletcherCalcium [Mass/Vol]8.2 mg/dLCritically low8.5-10.1The [facility]burgComment on above:Performed By: #### POCGLUC #### [facility] [address] [address] [address] Luis Carlos FletcherChloride [Moles/Vol]104 mmol/UYhhmma17-128Gji [facility] Comment on above:Performed By: #### POCGLUC #### [facility] [address] [address] [address] Luis Carlos FletcherCO2 [Moles/Vol]35.4 mmol/LCritically high21.0-32.0The [facility]burgComment on above:Performed By: #### POCGLUC #### [facility] [address] [address] [address] Luis Carlos FletcherCreatinine [Mass/Vol]0.57 mg/dLCritically low0.70-1.30The [facility]burgComment on above:Performed By: #### POCGLUC #### [facility] [address] [address] [address] Aldridge ChangEGFR-AF PAPUA NEW GUINEAN>60Normal>=60The [facility]burgComment on above:Performed By: #### POCGLUC #### [facility] [address] [address] [address] Luis Carlos AlmazanGFR-NON AF PAPUA NEW GUINEAN>60Normal>=60The [facility]burgComment on above:Performed By: #### POCGLUC #### [facility] [address] [address] [address] Luis Carlos FletcherGlucose [Mass/Vol]127 mg/dLCritically qzpk47-988Dyi [facility]burgComment on above:Performed By: #### POCGLUC #### [facility] [address] [address] [address] Luis Carlos FletcherPotassium [Moles/Vol]4.8 mmol/LNormal3.5-5.1The [facility] Comment on above:Performed By: #### POCGLUC #### [facility] [address] [address] [address] Luis Carlos FletcherSodium [Moles/Vol]137 mmol/SCedcvd764-548Flo [facility] Comment on above:Performed By: #### POCGLUC #### [facility] [address] [address] [address] Luis Carlos FletcherUrea nitrogen [Mass/Vol]25.0 mg/dLCritically high7.0-18.0The [facility]Com[facility] on above:Performed By: #### POCGLUC #### [facility] [address] [address] [address] Luis Carlos FletcherUrea nitrogen/Creatinine [Mass ratio]43.9 mg/mgNormalThe [facility]burgComment on above:Performed By: #### POCGLUC #### [facility] [address] [address] [address] Luis Carlos Francisco AUTO DIFFon 99-94-2712ABGM #0.0 103/ulNormal0.0-0.1The [facility]burgCom[facility] on above:Performed By: #### POCGLUC #### [facility] [address] [address] [address] Luis Carlos FletcherBasophils/100 WBC (Bld)0.2 %Normal0.2-2.0The [facility] Comment on above:Performed By: #### POCGLUC #### [facility] [address] [place] [address] Dr. Luis Carlos Cowan #0.0 103/ulNormal0.0-0.7The [facility]burgComment on above: Performed By: #### POCGLUC #### [facility] [address] [place] [address] Dr. Luis Carlos Almazanosinophils/100 WBC (Bld)0.1 %Critically low0.9-7.0The [facility]burgComment on above:Performed By: #### POCGLUC #### [facility] [address] [place] [address] Dr. Luis Carlos Almazanrythrocyte distribution width (RBC) [Ratio]13.1 %Kzajbt10.0-15.0 The [facility]burgComment on above:Performed By: #### POCGLUC #### [facility] [address] [place] [address] Dr. Luis Carlos FletcherHematocrit (Bld) [Volume fraction]46.5 %Bckqcr62.0-54.0The [facility]burgComment on above:Performed By: #### POCGLUC #### [facility] [address] [place] [address] Dr. Luis Carlos FletcherHemoglobin (Bld) [Mass/Vol]15.4 g/cTDzwyhb68.0-18.0The [facility]burgComment on above:Performed By: #### POCGLUC #### [facility] [address] [place] [address] Dr. Luis Carlos Galeano #0.07 10e3/ulCritically high0.00-0.03The [facility] Comment on above:Performed By: #### POCGLUC #### [facility] [address] [place] [address] Dr. Luis Carlos Galeano %0.7 %Critically high0.0-0.5The [facility]burgComment on above:Performed By: #### POCGLUC #### [facility] [address] [place] [address] Dr. Luis Carlos Gee #0.6 103/ulCritically low1.2-3.8The [facility] Comment on above:Performed By: #### POCGLUC #### [facility] [address] [place] [address] Dr. Luis Carlos Faulknermphocytes/100 WBC (Bld)6.1 %Critically low20.5-60.0The [facility]burgComment on above:Performed By: #### POCGLUC #### [facility] [address] [place] [address] Dr. Luis Carlos Brownlee DIFF REQNONormalThe [facility]burgComment on above: Performed By: #### POCGLUC #### [facility] [address] [place] [address] Dr. Luis Carlos Tamayo (RBC) [Entitic mass]30.7 arOxolom39.9-34.0The [facility]burgComment on above:Performed By: #### POCGLUC #### [facility] [address] [place] [address] Dr. Luis Carlos Tamayo (RBC) [Mass/Vol]33.1 g/dIXubxrb20.9-35.2The [facility]burgComment on above:Performed By: #### POCGLUC #### [facility] [address] [place] [address] Dr. Luis Carlos Tamayo (RBC) [Entitic vol]92.8 zVApfrrd71.0-94.0The [facility]burgComment on above:Performed By: #### POCGLUC #### [facility] [address] [place] [address] Dr. Luis Carlos Jules #0.7 103/ulNormal0.3-0.8The [facility]burgComment on above:Performed By: #### POCGLUC #### [facility] [address] [place] [address] Dr. Luis Carlos Mccallumocytes/100 WBC (Bld)6.9 %Normal1.7-12.0The [facility] Comment on above:Performed By: #### POCGLUC #### [facility] [address] [address] [address] Luis Carlos Thompson #8.7 103/ulCritically high1.4-6.5ThA[facility] Comment on above:Performed By: #### POCGLUC #### [facility] [address] [address] [address] Luis Carlos Babcockutrophils/100 WBC (Bld)86.0 %Critically high43.0-75.0The [facility]burgComment on above:Performed By: #### POCGLUC #### [facility] [address] [address] [address] Luis Carlos Esteveslet mean volume (Bld) [Entitic vol]9.9 fLNormal9.5-13.5The [facility]burgComment on above:Performed By: #### POCGLUC #### [facility] [address] [place] [address] Dr. Luis Carlos FletcherPLT236 103/scRfnqsj188-102Myl [facility]burgComment on above: Performed By: #### POCGLUC #### [facility] [address] [place] [address] Dr. Luis Carlos FletcherRBC5.01 106/ulNormal4.70-6.10The [facility]burgComment on above:Performed By: #### POCGLUC #### [facility] [address] [place] [address] Dr. Luis Carlos FletcherWBC10.2 103/ulNormal4.0-11.0The [facility]burgComment on above:Performed By: #### POCGLUC #### [facility] [address] [place] [address] Dr. Luis Carlos FletcherPHOEBE [facility] GLUCOSEon 61-86-1904Qmoeqek [Mass/Vol]141 mg/dL Critically jzcq97-109QugMetrohealth Parma Medical CenterComment on above:Performed By: #### POCGLUC #### [facility] [address] [place] [address] Dr. Luis Carlos FletcherGlucose [Mass/Vol]98 mg/bWFrtafk01-994Ikc [facility] Comment on above:Performed By: #### POCGLUC #### [facility] [address] [address] [address] Luis Carlos FletcherPROF CHEM 8 (BAS METB)on 83-73-7757Cukdf gap [Moles/Vol]7.6 mmol/LNormalThe [facility]burgComment on above:Performed By: #### POCGLUC #### [facility] [address] [address] [address] Luis Carlos FlethcerCalcium [Mass/Vol]8.5 mg/dLNormal8.5-10.1[facility] Comment on above:Performed By: #### POCGLUC #### [facility] [address] [place] [address] Dr. Luis Carlos FletcherChloride [Moles/Vol]103 mmol/EHedfsz91-096RveMetrohealth [facility] Center Comment on above:Performed By: #### POCGLUC #### [facility] [address] [place] [address] Dr. Luis Carlos FletcherCO2 [Moles/Vol]36.0 mmol/LCritically high21.0-32.0The [facility]Comment on above:Performed By: #### POCGLUC #### [facility] [address] [place] [address] Dr. Luis Carlos FletcherCreatinine [Mass/Vol]0.64 mg/dLCritically low0.70-1.30The [facility]Comment on above:Performed By: #### POCGLUC #### [facility] [address] [place] [address] Dr. Luis Carlos AlmazanGFR-AF PAPUA NEW GUINEAN>60Normal>=60The [facility]Comment on above:Performed By: #### POCGLUC #### [facility] [address] [place] [address] Dr. Luis Carlos AlmazanGFR-NON AF PAPUA NEW GUINEAN>60Normal>=60The [facility]Comment on above:Performed By: #### POCGLUC #### [facility] [address] [place] [address] Dr. Luis Carlos FletcherGlucose [Mass/Vol]104 mg/yYDifhwe55-526CvpMetrohealth Parma [facility] Center Comment on above:Performed By: #### POCGLUC #### [facility] [address] [address] [address] Luis Carlos FletcherPotassium [Moles/Vol]4.6 mmol/LNormal3.5-5.1The [facility] Comment on above:Performed By: #### POCGLUC #### [facility] [address] [address] [address] Luis Carlos FletcherSodium [Moles/Vol]142 mmol/NXunuyo426-085Efu [facility] Comment on above:Performed By: #### POCGLUC #### [facility] [address] [place] [address] Dr. Luis Carlos FletcherUrea nitrogen [Mass/Vol]25.0 mg/dLCritically high7.0-18.0The [facility]Comment on above:Performed By: #### POCGLUC #### [facility] [address] [place] [address] Dr. Luis Carlos Mccann nitrogen/Creatinine [Mass ratio]39.1 mg/mgNormalThe [facility]burgComment on above:Performed By: #### POCGLUC #### [facility] [address] [place] [address] Dr. Luis Carlos Francisco AUTO DIFFon 10-37-1652ZVDE #0.0 103/ulNormal0.0-0.1The [facility]Comment on above:Performed By: #### BMP #### [facility] [address] [place] [address] Dr. Luis Carlos FletcherBasophils/100 WBC (Bld)0.0 %Critically low0.2-2.0The [facility]burgComment on above:Performed By: #### BMP #### [facility] [address] [place] [address] Dr. Luis Carlos Cowan #0.0 103/ulNormal0.0-0.7The [facility]Comment on above: Performed By: #### BMP #### [facility] [address] [place] [address] Dr. Luis Carlos Almazanosinophils/100 WBC (Bld)0.4 %Critically low0.9-7.0The [facility]Comment on above:Performed By: #### BMP #### [facility] [address] [place] [address] Dr. Luis Carlos Almazanrythrocyte distribution width (RBC) [Ratio]13.1 %Oxfhhu95.0-15.0 The [facility]burgComment on above:Performed By: #### BMP #### [facility] [address] [place] [address] Dr. Luis Carlos FletcherHematocrit (Bld) [Volume fraction]46.0 %Bcrhcg49.0-54.0The [facility]burgComment on above:Performed By: #### BMP #### [facility] [address] [place] [address] Dr. Luis Carlos FletcherHemoglobin (Bld) [Mass/Vol]15.3 g/kPClhspw17.0-18.0The [facility]Comment on above:Performed By: #### BMP #### [facility] [address] [place] [address] Dr. Luis Carlos Galeano #0.05 10e3/ulCritically high0.00-0.03[facility] Comment on above:Performed By: #### BMP #### [facility] [address] [place] [address] Dr. Luis Carlos Galeano %0.7 %Critically high0.0-0.5The [facility]Comment on above:Performed By: #### BMP #### [facility] [address] [place] [address] Dr. Luis Carlos FaulknerMPH #0.5 103/ulCritically low1.2-3.8The [facility] Comment on above:Performed By: #### BMP #### [facility] [address] [place] [address] Dr. Luis Carlos Faulknermphocytes/100 WBC (Bld)7.1 %Critically low20.5-60.0The [facility]burgComment on above:Performed By: #### BMP #### [facility] [address] [place] [address] Dr. Luis Carlos Brownlee DIFF REQNONormalThe [facility]burgComment on above: Performed By: #### BMP #### [facility] [address] [place] [address] Dr. Luis Carlos Tamayo (RBC) [Entitic mass]30.4 oeXtxlao90.9-34.0The [facility]burgComment on above:Performed By: #### BMP #### [facility] [address] [place] [address] Dr. Luis Carlos Tamayo (RBC) [Mass/Vol]33.3 g/pCTrkvhd70.9-35.2The [facility]burgComment on above:Performed By: #### BMP #### [facility] [address] [place] [address] Dr. Luis Carlos Tamayo (RBC) [Entitic vol]91.5 rUIsatdv20.0-94.0The [facility]burgComment on above:Performed By: #### BMP #### [facility] [address] [place] [address] Dr. Luis Carlos Jules #0.3 103/ulNormal0.3-0.8The [facility]Comment on above:Performed By: #### BMP #### [facility] [address] [place] [address] Dr. Luis Carlos Mccallumocytes/100 WBC (Bld)4.0 %Normal1.7-12.0[facility] Comment on above:Performed By: #### BMP #### [facility] [address] [place] [address] Dr. Luis Carlos Thompson #6.6 103/ulCritically high1.4-6.5The [facility] Comment on above:Performed By: #### BMP #### [facility] [address] [place] [address] Dr. Luis Carlos Babcockutrophils/100 WBC (Bld)87.8 %Critically high43.0-75.0The [facility]Comment on above:Performed By: #### BMP #### [facility] [address] [address] [address] Luis Carlos FletcherPlatelet mean volume (Bld) [Entitic vol]9.8 fLNormal9.5-13.5The [facility]Comment on above:Performed By: #### BMP #### [facility] [address] [address] [address] Luis Carlos FletcherPLT200 103/xvBniill597-414Mpx [facility]Comment on above: Performed By: #### BMP #### [facility] [address] [place] [address] Dr. Luis Carlos FletcherRBC5.03 106/ulNormal4.70-6.10The [facility]Comment on above:Performed By: #### BMP #### [facility] [address] [place] [address] Dr. Luis Carlos FletcherWBC7.5 103/ulNormal4.0-11.0The [facility]Comment on above: Performed By: #### BMP #### [facility] [address] [place] [address] Dr. Luis Carlos FletcherPOINT OF [facility] GLUCOSEon 71-53-8007Uevnbsn [Mass/Vol]124 mg/dL Critically xszf23-715HdqMetrohealth Parma Medical CenterComhenry ford [facility] on above:Performed By: #### BMP #### [facility] [address] [place] [address] Dr. Luis Carlos FletcherGlucose [Mass/Vol]102 mg/oRRwkugb99-190BwiMetrohealth Parma Medical Center Comment on above:Performed By: #### POCGLUC #### [facility] [address] [place] [address] Dr. Luis Carlos FletcherGlucose [Mass/Vol]216 mg/dLCritically yhdq56-730NpsMetrohealth Parma Medical CenterComment on above:Performed By: #### BMP #### [facility] [address] [place] [address] Dr. Luis Carlos FletcherPROF CHEM 8 (BAS METB)on 75-93-8374Spsdv gap [Moles/Vol]2.6 mmol/LNormalMetrohealth Parma Medical CenterComment on above:Performed By: #### BMP #### [facility] [address] [address] [address] Luis Carlos FletcherCalcium [Mass/Vol]8.3 mg/dLCritically low8.5-10.1The [facility]Comment on above:Performed By: #### BMP #### [facility] [address] [address] [address] Luis Carlos FletcherChloride [Moles/Vol]103 mmol/NRmwzcu81-508Zbk [facility] Comment on above:Performed By: #### BMP #### [facility] [address] [address] [address] Luis Carlos FletcherCO2 [Moles/Vol]39.7 mmol/LCritically high21.0-32.0The [facility]Comment on above:Performed By: #### BMP #### [facility] [address] [place] [address] Dr. Luis Carlos FletcherCreatinine [Mass/Vol]0.73 mg/dLNormal0.70-1.30The [facility]Comment on above:Performed By: #### BMP #### [facility] [address] [address] [address] Luis Carlos AlmazanGFR-AF PAPUA NEW GUINEAN>60Normal>=60The [facility]Comment on above:Performed By: #### BMP #### [facility] [address] [place] [address] Dr. Luis Carlos AlmazanGFR-NON AF PAPUA NEW GUINEAN>60Normal>=60The [facility] on above:Performed By: #### BMP #### [facility] [address] [address] [address] Luis Carlos FletcherGlucose [Mass/Vol]130 mg/dLCritically tidt78-272Bbx [facility]Comment on above:Performed By: #### BMP #### [facility] [address] [address] [address] Luis Carlos FletcherPotassium [Moles/Vol]4.3 mmol/LNormal3.5-5.1The [facility] Comment on above:Performed By: #### BMP #### [facility] [address] [address] [address] Luis Carlos Schofielddium [Moles/Vol]141 mmol/TOfhgnl593-772Zpg [facility] Comment on above:Performed By: #### BMP #### [facility] [address] [address] [address] Luis Carlos Mccann nitrogen [Mass/Vol]20.0 mg/dLCritically high7.0-18.0The [facility]Comment on above:Performed By: #### BMP #### [facility] [address] [place] [address] Dr. Luis Carlos Mccann nitrogen/Creatinine [Mass ratio]27.4 mg/mgNormalThe [facility]Comment on above:Performed By: #### BMP #### [facility] [address] [place] [address] Dr. Luis Carlos Francisco W MANUAL DIFFon 22-61-4847PEIUPYZP LYMPH #0.63 103/ulNormal The [facility]Comment on above:Performed By: #### POCGLUC #### [facility] [address] [place] [address] Dr. Luis Carlos SingletonICAL LYMPH %6 %NormalThe [facility]burgComment on above: Performed By: #### POCGLUC #### [facility] [address] [place] [address] Dr. Luis Carlos Giles #0.0 103/ulNormal0.0-0.3The [facility]Comment on above:Performed By: #### POCGLUC #### [facility] [address] [place] [address] Dr. Luis Carlos Giles %0 %Normal0-5The [facility]Comment on above:Performed By: #### POCGLUC #### [facility] [address] [place] [address] Dr. Luis Carlos Anthony #0.00 103/ulNormal0.00-0.10The [facility]Comment on above:Performed By: #### POCGLUC #### [facility] [address] [place] [address] Dr. Luis Carlos Anthony %0.0 %Critically low0.2-2.0The [facility]Comment on above:Performed By: #### POCGLUC #### [facility] [address] [address] [address] Luis Carlos FletcherBLAST #NormalThe [facility]Comment on above:Performed By: #### POCGLUC #### [facility] [address] [address] [address] Luis Carlos FletcherBLAST %NormalThe [facility] HospitalComment on above:Performed By: #### POCGLUC #### [facility] [address] [place] [address] Dr. Luis Carlos FletcherCORRECTED WBCNormal4.0-11.0The [facility]Comment on above: Performed By: #### POCGLUC #### [facility] [address] [place] [address] Dr. Luis Carlos Horn #0.00 103/ulNormal0.00-0.70The [facility]Comment on above:Performed By: #### POCGLUC #### [facility] [address] [place] [address] Dr. Luis Carlos Horn%0.0 %Critically low0.9-7.0The [facility] on above:Performed By: #### POCGLUC #### [facility] [address] [place] [address] Dr. Luis Carlos FletcherHCT45.8 %Kmwypi11.0-54.0The [facility]Comment on above: Performed By: #### POCGLUC #### [facility] [address] [place] [address] Dr. Luis Carlos FletcherHGB15.2 g/kkJifgax31.0-18.0The [facility]Comment on above: Performed By: #### POCGLUC #### [facility] [address] [place] [address] Dr. Luis Carlos Joe #0.00 103/ulCritically low1.20-3.80The [facility] on above:Performed By: #### POCGLUC #### [facility] [address] [address] [address] Luis Carlos Joe%0.0 %Critically low20.5-60.0The [facility]Comment on above:Performed By: #### POCGLUC #### [facility] [address] [address] [address] Luis Carlos TamayoH30.6 tmDeejqb70.9-34.0The [facility] HospitalComment on above: Performed By: #### POCGLUC #### [facility] [address] [place] [address] Dr. Luis Carlos TamayoHC33.2 g/iyWcmral75.9-35.2The [facility]Comment on above:Performed By: #### POCGLUC #### [facility] [address] [place] [address] Dr. Luis Carlos TamayoV92.3 xGExsdbf92.0-94.0The [facility] HospitalComment on above: Performed By: #### POCGLUC #### [facility] [address] [place] [address] Dr. Luis Carlos DonOCYTE #NormalThe [facility]Comment on above: Performed By: #### POCGLUC #### [facility] [address] [place] [address] Dr. Luis Carlos PorterAMYELOCYTE %NormalThe [facility]burgComment on above: Performed By: #### POCGLUC #### [facility] [address] [place] [address] Dr. Luis Carlos Benson#0.21 103/ulCritically low0.30-0.80The [facility] Comment on above:Performed By: #### POCGLUC #### [facility] [address] [place] [address] Dr. Luis Carlos Benson%2.0 %Normal1.7-12.0The [facility]Comment on above: Performed By: #### POCGLUC #### [facility] [address] [place] [address] Dr. Luis Carlos AmbrizV10.0 fLNormal9.5-13.5The [facility]Comment on above: Performed By: #### POCGLUC #### [facility] [address] [address] [address] Luis Carlos Love #NormalThe [facility] HospitalComment on above:Performed By: #### POCGLUC #### [facility] [address] [address] [address] Luis Carlos MorganOCYTE %NormalThe [facility] HospitalComment on above:Performed By: #### POCGLUC #### [facility] [address] [address] [address] Luis Carlos LuceroNormalThe [facility]Comment on above:Performed By: #### POCGLUC #### [facility] [address] [place] [address] Dr. Luis Carlos SegoviaT215 103/bdAcpluw418-038Rmp [facility]Comment on above: Performed By: #### POCGLUC #### [facility] [address] [place] [address] Dr. Luis Carlos CastellanosC4.96 106/ulNormal4.70-6.10The [facility]Comment on above:Performed By: #### POCGLUC #### [facility] [address] [place] [address] Dr. Luis Carlos DanW13.4 %Inrfir76.0-15.0The [facility]burgComment on above: Performed By: #### POCGLUC #### [facility] [address] [place] [address] Dr. Luis Carlos Jeff #9.66 103/ulCritically high1.40-6.50The [facility] on above:Performed By: #### POCGLUC #### [facility] [address] [place] [address] Dr. Luis Carlos Jeff %92.0 %Critically high43.0-75.0The [facility]Comment on above:Performed By: #### POCGLUC #### [facility] [address] [address] [address] Luis Carlos MolinaBC10.5 103/ulNormal4.0-11.0The [facility]Comment on above:Performed By: #### POCGLUC #### [facility] [address] [place] [address] Dr. Luis Carlos FletcherPOINT OF CARE GLUCOSEon 93-39-9458Nejycsg [Mass/Vol]136 mg/dL Critically rese79-944Efw [facility]burgComment on above:Performed By: #### POCGLUC #### [facility] [address] [place] [address] Dr. Luis Carlos FletcherGlucose [Mass/Vol]106 mg/fXSjolzb51-862CoxMetrohealth [facility] Center Comment on above:Performed By: #### BMP #### [facility] [address] [place] [address] Dr. Luis Carlos FletcherGlucose [Mass/Vol]156 mg/dLCritically nell53-627Hli [facility]Comment on above:Performed By: #### POCGLUC #### [facility] [address] [place] [address] Dr. Luis Carlos FletcherPROF CHEM 8 (BAS METB)on 61-87-3490Ufzmw gap [Moles/Vol]7.8 mmol/LNormalThe [facility]burgComment on above:Performed By: #### POCGLUC #### [facility] [address] [place] [address] Dr. Luis Carlos FletcherCalcium [Mass/Vol]8.5 mg/dLNormal8.5-10.1[facility] Comment on above:Performed By: #### POCGLUC #### [facility] [address] [place] [address] Dr. Luis Carlos FletcherChloride [Moles/Vol]103 mmol/BHrlrls16-439IboMetrohealth [facility] Center Comment on above:Performed By: #### POCGLUC #### [facility] [address] [place] [address] Dr. Luis Carlos FletcherCO2 [Moles/Vol]34.0 mmol/LCritically high21.0-32.0The [facility]Comment on above:Performed By: #### POCGLUC #### [facility] [address] [address] [address] Luis Carlos FletcherCreatinine [Mass/Vol]0.70 mg/dLNormal0.70-1.30The [facility]Comment on above:Performed By: #### POCGLUC #### [facility] [address] [address] [address] Luis Carlos AlmazanGFR-AF PAPUA NEW GUINEAN>60Normal>=60The [facility]Comment on above:Performed By: #### POCGLUC #### [facility] [address] [address] [address] Luis Carlos AlmazanGFR-NON AF PAPUA NEW GUINEAN>60Normal>=60The [facility]Comment on above:Performed By: #### POCGLUC #### [facility] [address] [address] [address] Luis Carlos FletcherGlucose [Mass/Vol]122 mg/dLCritically ipiz14-939Rzl [facility] Hospitalment on above:Performed By: #### POCGLUC #### [facility] [address] [place] [address] Dr. Luis Carlos FletcherPotassium [Moles/Vol]4.8 mmol/LNormal3.5-5.1The [facility] Comment on above:Performed By: #### POCGLUC #### [facility] [address] [place] [address] Dr. Luis Carlos FletcherSodium [Moles/Vol]140 mmol/JFetdps461-166Ooz [facility] Comment on above:Performed By: #### POCGLUC #### [facility] [address] [address] [address] Luis Carlos FletcherUrea nitrogen [Mass/Vol]18.0 mg/dLNormal7.0-18.0The [facility] Hospitalment on above:Performed By: #### POCGLUC #### [facility] [address] [place] [address] Dr. Luis Carlos FletcherUrea nitrogen/Creatinine [Mass ratio]25.7 mg/mgNormalThe [facility]burgComment on above:Performed By: #### POCGLUC #### [facility] [address] [place] [address] Dr. Luis Carlos Francisco W MANUAL DIFFon [id number] LYMPH #NormalThe [facility] HospitalComment on above:Performed By: #### BMP #### [facility] [address] [place] [address] Dr. Luis Carlos FletcherATYPICAL LYMPH %NormalThe [facility] HospitalComment on above: Performed By: #### BMP #### [facility] [address] [place] [address] Dr. Luis Carlos Giles #0.0 103/ulNormal0.0-0.3The [facility] HospitalComment on above:Performed By: #### BMP #### [facility] [address] [place] [address] Dr. Luis Carlos Giles %0 %Normal0-5The [facility] HospitalComment on above:Performed By: #### BMP #### [facility] [address] [place] [address] Dr. Luis Carlos Anthony #0.00 103/ulNormal0.00-0.10The [facility] HospitalComment on above:Performed By: #### BMP #### [facility] [address] [place] [address] Dr. Luis Carlos Anthony %0.0 %Critically low0.2-2.0The [facility] HospitalComment on above:Performed By: #### BMP #### [facility] [address] [place] [address] Dr. Luis Carlos Link #NormalThe [facility] HospitalComment on above:Performed By: #### BMP #### [facility] [address] [place] [address] Dr. Luis Carlos Link %NormalThe [facility] HospitalComment on above:Performed By: #### BMP #### [facility] [address] [place] [address] Dr. Luis Carlos PeraltaRRECTED WBCNormal4.0-11.0The [facility] HospitalComment on above: Performed By: #### BMP #### [facility] [address] [place] [address] Dr. Luis Carlos Horn #0.00 103/ulNormal0.00-0.70The [facility]Comment on above:Performed By: #### BMP #### [facility] [address] [place] [address] Dr. Luis Carlos Horn%0.0 %Critically low0.9-7.0The [facility]burgComment on above:Performed By: #### BMP #### [facility] [address] [place] [address] Dr. Luis Carlos PoeT44.3 %Jupfkm06.0-54.0The [facility]burgComment on above: Performed By: #### BMP #### [facility] [address] [place] [address] Dr. Luis Carlos FletcherHGB14.3 g/xsBwoihe99.0-18.0The [facility]burgComment on above: Performed By: #### BMP #### [facility] [address] [place] [address] Dr. Luis Carlos Joe #0.25 103/ulCritically low1.20-3.80The [facility] Comment on above:Performed By: #### BMP #### [facility] [address] [place] [address] Dr. Luis Carlos Joe%2.0 %Critically low20.5-60.0The [facility]burgComment on above:Performed By: #### BMP #### [facility] [address] [place] [address] Dr. Luis Carlos TamayoH30.5 blKkvfsr37.9-34.0The [facility]burgComment on above: Performed By: #### BMP #### [facility] [address] [place] [address] Dr. Luis Carlos TamayoHC32.3 g/ctXzatop91.9-35.2The [facility]burgComment on above:Performed By: #### BMP #### [facility] [address] [place] [address] Dr. Luis Carlos TamayoV94.5 fLCritically high80.0-94.0The [facility]burgComment on above:Performed By: #### BMP #### [facility] [address] [address] [address] Luis Carlos Ortiz #NormalWexner Medical Center HospitalComment on above: Performed By: #### BMP #### [facility] [address] [address] [address] Luis Carlos DonOCYTE %NormalWexner Medical Center HospitalComment on above: Performed By: #### BMP #### [facility] [address] [address] [address] Luis Carlos Benson#0.00 103/ulCritically low0.30-0.80The [facility] on above:Performed By: #### BMP #### [facility] [address] [address] [address] Luis Carlos Benson%0.0 %Critically low1.7-12.0The [facility] MiamisburgComment on above:Performed By: #### BMP #### [facility] [address] [address] [address] Luis Carlos AmbrizV10.3 fLNormal9.5-13.5The [facility] MiamisburgComment on above: Performed By: #### BMP #### [facility] [address] [address] [address] Luis Carlos Love #NormalMetrohealth Parma Medical CenterComment on above:Performed By: #### BMP #### [facility] [address] [address] [address] Luis Carlos Love %NormalThe Helena HospitalComment on above:Performed By: #### BMP #### [facility] [address] [address] [address] Luis Carlos YoungBCNormalThe [facility] MiamisburgComment on above:Performed By: #### BMP #### [facility] [address] [address] [address] Luis Carlos FletcherPLT195 103/fjFonaqi579-761Vou [facility] MiamisburgComment on above: Performed By: #### BMP #### [facility] [address] [address] [address] Luis Carlos FletcherRBC4.69 106/ulCritically low4.70-6.10The [facility] MiamisburgComment on above:Performed By: #### BMP #### [facility] [address] [place] [address] Dr. Luis Carlos FletcherRDW13.7 %Yztcyg53.0-15.0The [facility] MiamisburgComment on above: Performed By: #### BMP #### [facility] [address] [place] [address] Dr. Luis Carlos Jeff #12.45 103/ulCritically high1.40-6.50The [facility] Comment on above:Performed By: #### BMP #### [facility] [address] [place] [address] Dr. Luis Carlos Jeff %98.0 %Critically high43.0-75.0The [facility]amisburgComment on above:Performed By: #### BMP #### [facility] [address] [place] [address] Dr. Luis Carlos MolinaBC12.7 103/ulCritically high4.0-11.0The [facility] MiamisburgComment on above:Performed By: #### BMP #### [facility] [address] [place] [address] Dr. Luis Carlos FletcherPHOEBE [facility] GLUCOSEon 04-09-1711Ngonxne [Mass/Vol]118 mg/dL Critically mbiy25-766Mmc [facility]amisburgComment on above:Performed By: #### POCGLUC #### [facility] [address] [place] [address] Dr. Luis Carlos FletcherGlucose [Mass/Vol]139 mg/dLCritically gjcu66-137Lst [facility] MiamisburgComment on above:Performed By: #### POCGLUC #### [facility] [address] [place] [address] Dr. Luis Carlos FletcherGlucose [Mass/Vol]135 mg/dLCritically dkej11-909Mox [facility]burgComment on above:Performed By: #### HSTROPN #### [facility] [address] [place] [address] Dr. Luis Carlos CraigF CHEM 8 (BAS METB)on 29-89-4439Bqfhk gap [Moles/Vol]7.8 mmol/LNormalThe [facility]amisburgComment on above:Performed By: #### POCGLUC #### [facility] [address] [address] [address] Luis Carlos FletcherCalcium [Mass/Vol]8.6 mg/dLNormal8.5-10.1The [facility] Comment on above:Performed By: #### POCGLUC #### [facility] [address] [address] [address] Luis Carlos FletcherChloride [Moles/Vol]104 mmol/QJzqrqn67-701Oci [facility] Comment on above:Performed By: #### POCGLUC #### [facility] [address] [address] [address] Luis Carlos FletcherCO2 [Moles/Vol]35.6 mmol/LCritically high21.0-32.0The [facility]burgComment on above:Performed By: #### POCGLUC #### [facility] [address] [address] [address] Luis Carlos FletcherCreatinine [Mass/Vol]0.70 mg/dLNormal0.70-1.30The [facility]burgComment on above:Performed By: #### POCGLUC #### [facility] [address] [address] [address] Luis Carlos AlmazanGFR-AF PAPUA NEW GUINEAN>60Normal>=60The [facility]burgComment on above:Performed By: #### POCGLUC #### [facility] [address] [address] [address] Luis Carlos AlmazanGFR-NON AF PAPUA NEW GUINEAN>60Normal>=60The [facility]burgComment on above:Performed By: #### POCGLUC #### [facility] [address] [address] [address] Luis Carlos FletcherGlucose [Mass/Vol]125 mg/dLCritically zwof73-180Yjt [facility]burgComment on above:Performed By: #### POCGLUC #### [facility] [address] [address] [address] Luis Carlos FletcherPotassium [Moles/Vol]4.4 mmol/LNormal3.5-5.1[facility] Comment on above:Performed By: #### POCGLUC #### [facility] [address] [address] [address] Luis Carlos FletcherSodium [Moles/Vol]143 mmol/NKzeexq166-855Mlh [facility] Comment on above:Performed By: #### POCGLUC #### [facility] [address] [address] [address] Luis Carlos FletcherUrea nitrogen [Mass/Vol]19.0 mg/dLCritically high7.0-18.0The [facility]burgComment on above:Performed By: #### POCGLUC #### [facility] [address] [address] [address] Luis Carlos FletcherUrea nitrogen/Creatinine [Mass ratio]27.1 mg/mgNoCherrington HospitalComment on above:Performed By: #### POCGLUC #### [facility] [address] [address] [address] Luis Carlos FletcherXR CHEST 1 Von 60-74-2308PV CHEST 1 VEXAM: XR CHEST 1 V HISTORY: ACUTE RESPIRATORY [...] Electronically authenticated by: CUONG YOST Date: 2022-06-15 09:22L[facility] Memorial HospitalBLOOD GASES BTYon MODENASAL CANNULANoCherrington HospitalComment on above:Performed By: #### POCGLUC #### [facility] [address] [address] [address] Luis Carlos Brothers TESTPositiveLima Memorial HospitalComment on above: Performed By: #### POCGLUC #### [facility] [address] [address] [address] Luis Carlos Dixon excess Calc (Bld) [Moles/Vol]12.2 mmol/LCritically high -2.0-2.0The [facility] on above:Performed By: #### POCGLUC #### [facility] [address] [place] [address] Dr. Luis Carlos Knapp Galion HospitalComment on above: Performed By: #### POCGLUC #### [facility] [address] [place] [address] Dr. Luis Carlos FletcherClinton Memorial HospitalComhenry ford jack[facility] hospital on above:Performed By: #### POCGLUC #### [facility] [address] [place] [address] Dr. Luis Carlos FletcherHocdnRYK3MclhmzDve75 Williams StreetComhenry ford jackson hospital on above:Performed By: #### POCGLUC #### [facility] [address] [place] [address] Dr. Luis Carlos FletcherHCO3 (Bld) [Moles/Vol]37.5 mmol/LCritically high22.0-26.0The [facility]burgComhenry ford jackson hospital on above:Performed By: #### POCGLUC #### [facility] [address] [place] [address] Dr. Luis Carlos FletcherXpgypMKY4MjvqvuUni48 Gilmore StreetComhenry ford jackson hospital on above:Performed By: #### POCGLUC #### [facility] [address] [place] [address] Dr. Luis Carlos MayesMer[address] Vincent Medical CenterComhenry ford jack[facility] hospital on above: Performed By: #### POCGLUC #### [facility] [address] [place] [address] Dr. Luis Carlos FletcherOxygen (Bld) [Partial pressure]72.3 mm[Hg]Critically low 80.0-100.0The [facility] on above:Performed By: #### POCGLUC #### [facility] [address] [place] [address] Dr. Luis Carlos FletcherOxygen saturation in Blood95.4 %Wsqqjv68.0-100.0[facility] on above:Performed By: #### POCGLUC #### [facility] [address] [address] [address] Luis Carlos FletcherPCO265.6 mmHgCritically high35.0-45.0[facility] on above:Performed By: #### POCGLUC #### [facility] [address] [address] [address] Luis Carlos FletcherNorwalk Memorial Hospital on above:Performed By: #### POCGLUC #### [facility] [address] [address] [address] Luis Carlos Cárdenas (Bld)7.366 [pH]Normal7.350-7.450The [facility] on above:Performed By: #### POCGLUC #### [facility] [address] [address] [address] Luis Carlos NguyenTrumbull Regional Medical Center on above:Performed By: #### POCGLUC #### [facility] [address] [address] [address] Luis Carlos FletcherAultman Alliance Community Hospital on above:Performed By: #### POCGLUC #### [facility] [address] [address] [address] Luis Carlos Carmichael [facility] on above: Performed By: #### POCGLUC #### [facility] [address] [address] [address] Luis Carlos MccauleyMount Carmel Health System on above:Performed By: #### POCGLUC #### [facility] [address] [address] [address] Luis Carlos FletcherBethesda North Hospital on above:Performed By: #### POCGLUC #### [facility] [address] [place] [address] Dr. Luis Carlos FletcherKettering Health Troy on above:Performed By: #### POCGLUC #### [facility] [address] [place] [address] Dr. Luis Carlos Francisco AUTO DIFFon [id number] #0.0 103/ulNormal0.0-0.1The [facility]burgComment on above:Performed By: #### HSTROPN #### [facility] [address] [place] [address] Dr. Luis Carlos FletcherBasophils/100 WBC (Bld)0.1 %Critically low0.2-2.0The [facility]burgComment on above:Performed By: #### HSTROPN #### [facility] [address] [place] [address] Dr. Luis Carlos Cowan #0.0 103/ulNormal0.0-0.7The [facility]burgComment on above: Performed By: #### HSTROPN #### [facility] [address] [place] [address] Dr. Luis Carlos Almazanosinophils/100 WBC (Bld)0.1 %Critically low0.9-7.0The [facility]burgComment on above:Performed By: #### HSTROPN #### [facility] [address] [place] [address] Dr. Luis Carlos Almazanrythrocyte distribution width (RBC) [Ratio]13.5 %Tfqovc15.0-15.0 The [facility]burgComhenry ford jackson hospital on above:Performed By: #### HSTROPN #### [facility] [address] [place] [address] Dr. Luis Carlos FletcherHematocrit (Bld) [Volume fraction]42.6 %Qptsse98.0-54.0The [facility]burgComment on above:Performed By: #### HSTROPN #### [facility] [address] [place] [address] Dr. Luis Carlos FletcherHemoglobin (Bld) [Mass/Vol]13.6 g/dLCritically low14.0-18.0The [facility] on above:Performed By: #### HSTROPN #### [facility] [address] [place] [address] Dr. Luis Carlos Galeano #0.05 10e3/ulCritically high0.00-0.03The [facility] Comment on above:Performed By: #### HSTROPN #### [facility] [address] [place] [address] Dr. Luis Carlos Galeano %0.4 %Normal0.0-0.5The [facility]burgComment on above: Performed By: #### HSTROPN #### [facility] [address] [place] [address] Dr. Luis Carlos Gee #0.7 103/ulCritically low1.2-3.8The [facility] Comment on above:Performed By: #### HSTROPN #### [facility] [address] [place] [address] Dr. Luis Carlos Garzahocytes/100 WBC (Bld)5.8 %Critically low20.5-60.0The [facility]burgComment on above:Performed By: #### HSTROPN #### [facility] [address] [place] [address] Dr. Luis Carlos HeathUAL DIFF REQNONormalThe [facility]burgComment on above: Performed By: #### HSTROPN #### [facility] [address] [place] [address] Dr. Luis Carlos Boucher (RBC) [Entitic mass]30.5 zuExtoeb99.9-34.0The [facility]burgComment on above:Performed By: #### HSTROPN #### [facility] [address] [place] [address] Dr. Luis Carlos Tamayo (RBC) [Mass/Vol]31.9 g/nPLbsvwa76.9-35.2The [facility]burgComment on above:Performed By: #### HSTROPN #### [facility] [address] [place] [address] Dr. Luis Carlos Tamayo (RBC) [Entitic vol]95.5 fLCritically high80.0-94.0The [facility]burgComment on above:Performed By: #### HSTROPN #### [facility] [address] [place] [address] Dr. Luis Carlos Jules #0.5 103/ulNormal0.3-0.8The [facility]burgComment on above:Performed By: #### HSTROPN #### [facility] [address] [place] [address] Dr. Luis Carlos Mccallumocytes/100 WBC (Bld)3.9 %Normal1.7-12.0[facility] Comment on above:Performed By: #### HSTROPN #### [facility] [address] [place] [address] Dr. Luis Carlos Thompson #10.6 103/ulCritically high1.4-6.5The [facility] Comment on above:Performed By: #### HSTROPN #### [facility] [address] [place] [address] Dr. Luis Carlos Babcockutrophils/100 WBC (Bld)89.7 %Critically high43.0-75.0The [facility]burgComment on above:Performed By: #### HSTROPN #### [facility] [address] [place] [address] Dr. Luis Carlos Tinajero mean volume (Bld) [Entitic vol]10.6 fLNormal9.5-13.5The [facility]burgComment on above:Performed By: #### HSTROPN #### [facility] [address] [place] [address] Dr. Luis Carlos FletcherPLT153 103/nnHuttpr735-142Rex [facility]burgComment on above: Performed By: #### HSTROPN #### [facility] [address] [place] [address] Dr. Luis Carlos FletcherRBC4.46 106/ulCritically low4.70-6.10The [facility]burgComment on above:Performed By: #### HSTROPN #### [facility] [address] [place] [address] Dr. Luis Carlos FletcherWBC11.8 103/ulCritically high4.0-11.0The Christ HospitalComment on above:Performed By: #### HSTROPN #### [facility] [address] [place] [address] Dr. Luis Carlos LayDIO M/2D COMPLETEon 52-43-4450WYKHYSFPSW M/2D COMPLETE Patient: MAXWELL LOUIE Exam Date: 06/14/2022 : 1950 Gender:M Ordering : SHAIKH Elisa ESCOBAR . Admission #: [id number] Family : Order #: [id number] CLICK HERE TO VIEW EXAM ECHOCARDIOGRAM REPORT [...] by: Jules Acuña M.D. on 06/14/2022 at 18:26[facility] GLUCOSEon 58-63-0530Kiwxnio [Mass/Vol]168 mg/dLCritically ofrm34-810KtqMetrohealth Parma Medical CenterComment on above:Performed By: #### HSTROPN #### [facility] [address] [address] [address] Luis Carlos FletcherGlucose [Mass/Vol]152 mg/dLCritically mrbu61-751Lev [facility]burgComment on above:Performed By: #### BMP #### [facility] [address] [address] [address] Luis Carlos FletcherGlucose [Mass/Vol]141 mg/dLCritically sxpn17-116Zmj [facility]burgComment on above:Performed By: #### BMP #### [facility] [address] [address] [address] Luis Carlos FletcherPROF CHEM 8 (BAS METB)on 18-87-7417Mehvr gap [Moles/Vol]6.7 mmol/LNormalThe [facility]burgComment on above:Performed By: #### BMP #### [facility] [address] [place] [address] Dr. Luis Carlos FletcherCalcium [Mass/Vol]8.7 mg/dLNormal8.5-10.1The [facility] Comment on above:Performed By: #### BMP #### [facility] [address] [address] [address] Luis Carlos FletcherChloride [Moles/Vol]105 mmol/VZcfsgn14-191Vpx [facility] Comment on above:Performed By: #### BMP #### [facility] [address] [address] [address] Luis Carlos FletcherCO2 [Moles/Vol]35.0 mmol/LCritically high21.0-32.0The [facility]burgComment on above:Performed By: #### BMP #### [facility] [address] [address] [address] Luis Carlos FletcherCreatinine [Mass/Vol]0.75 mg/dLNormal0.70-1.30The [facility]burgComment on above:Performed By: #### BMP #### [facility] [address] [address] [address] Aldridge ChangEGFR-AF PAPUA NEW GUINEAN>60Normal>=60The [facility]burgComment on above:Performed By: #### BMP #### [facility] [address] [address] [address] Luis Carlos AlmazanGFR-NON AF PAPUA NEW GUINEAN>60Normal>=60The [facility]burgComment on above:Performed By: #### BMP #### [facility] [address] [address] [address] Luis Carlos FletcherGlucose [Mass/Vol]158 mg/dLCritically rprk84-390Sik [facility]burgComment on above:Performed By: #### BMP #### [facility] [address] [address] [address] Luis Carlos FletcherPotassium [Moles/Vol]4.7 mmol/LNormal3.5-5.1[facility] Comment on above:Performed By: #### BMP #### [facility] [address] [place] [address] Dr. Luis Carlos FletcherSodium [Moles/Vol]142 mmol/RGcexws380-078Vtu [facility] Comment on above:Performed By: #### BMP #### [facility] [address] [address] [address] Luis Carlos FletcherUrea nitrogen [Mass/Vol]18.0 mg/dLNormal7.0-18.0The [facility]burgComhenry [facility] on above:Performed By: #### BMP #### [facility] [address] [place] [address] Dr. Luis Carlos FletcherUrea nitrogen/Creatinine [Mass ratio]24.0 mg/mgNormalThe [facility]burgComment on above:Performed By: #### BMP #### [facility] [address] [place] [address] Dr. Luis Carlos LuaC AUTO DIFFon [id number] #0.0 103/ulNormal0.0-0.1The [facility]burgComhenry [facility] on above:Performed By: #### CBC #### [facility] [address] [place] [address] Dr. Luis Carlos FletcherBasophils/100 WBC (Bld)0.2 %Normal0.2-2.0The [facility] Comment on above:Performed By: #### CBC #### [facility] [address] [place] [address] Dr. Luis Carlos Cowan #0.0 103/ulNormal0.0-0.7The [facility]burgComment on above: Performed By: #### CBC #### [facility] [address] [place] [address] Dr. Luis Carlos Almazanosinophils/100 WBC (Bld)0.0 %Critically low0.9-7.0The [facility]amisburgComment on above:Performed By: #### CBC #### [facility] [address] [place] [address] Dr. Luis Carlos Almazanrythrocyte distribution width (RBC) [Ratio]13.2 %Qrvyvl44.0-15.0 The [facility]amisburgComment on above:Performed By: #### CBC #### [facility] [address] [place] [address] Dr. Luis Carlos FletcherHematocrit (Bld) [Volume fraction]42.4 %Jotysq60.0-54.0The [facility]burgComment on above:Performed By: #### CBC #### [facility] [address] [place] [address] Dr. Luis Carlos FletcherHemoglobin (Bld) [Mass/Vol]13.7 g/dLCritically low14.0-18.0The [facility]burgComment on above:Performed By: #### CBC #### [facility] [address] [place] [address] Dr. Luis Carlos Galeano #0.01 10e3/ulNormal0.00-0.03The [facility]burgComment on above:Performed By: #### CBC #### [facility] [address] [place] [address] Dr. Luis Carlos Galeano %0.2 %Normal0.0-0.5The [facility]burgComment on above: Performed By: #### CBC #### [facility] [address] [place] [address] Dr. Luis Carlos Gee #0.6 103/ulCritically low1.2-3.8The [facility] Comment on above:Performed By: #### CBC #### [facility] [address] [place] [address] Dr. Luis Carlos Faulknermphocytes/100 WBC (Bld)15.7 %Critically low20.5-60.0The [facility]amisburgComment on above:Performed By: #### CBC #### [facility] [address] [place] [address] Dr. Luis Carlos Brownlee DIFF REQNONormalThe Helena HospitalComment on above: Performed By: #### CBC #### [facility] [address] [place] [address] Dr. Luis Carlos Tamayo (RBC) [Entitic mass]30.3 ilAynhii79.9-34.0The [facility]amisburgComment on above:Performed By: #### CBC #### [facility] [address] [place] [address] Dr. Luis Carlos Tamayo (RBC) [Mass/Vol]32.3 g/sDGoicjm28.9-35.2The [facility]burgComment on above:Performed By: #### CBC #### [facility] [address] [place] [address] Dr. Luis Carlos Sanchez (RBC) [Entitic vol]93.8 aBKxfbqg22.0-94.0The [facility]amisburgComment on above:Performed By: #### CBC #### [facility] [address] [place] [address] Dr. Luis Carlos Jules #0.0 103/ulCritically low0.3-0.8The [facility]burgComment on above:Performed By: #### CBC #### [facility] [address] [place] [address] Dr. Luis Carlos Mccallumocytes/100 WBC (Bld)1.0 %Critically low1.7-12.0The [facility]amisburgComment on above:Performed By: #### CBC #### [facility] [address] [place] [address] Dr. Yilan ChangNEUT #3.3 103/ulNormal1.4-6.5The [facility]burgComment on above:Performed By: #### CBC #### [facility] [address] [place] [address] Dr. Luis Carlos Babcockutrophils/100 WBC (Bld)82.9 %Critically high43.0-75.0The [facility]amisburgComment on above:Performed By: #### CBC #### [facility] [address] [place] [address] Dr. Luis Carlos FletcherPlatelet mean volume (Bld) [Entitic vol]10.9 fLNormal9.5-13.5The [facility]burgComment on above:Performed By: #### CBC #### [facility] [address] [place] [address] Dr. Luis Carlos FletcherPLT125 103/ulCritically orm379-107Nau [facility]burgComment on above:Performed By: #### CBC #### [facility] [address] [place] [address] Dr. Luis Carlos FletcherRBC4.52 106/ulCritically low4.70-6.10The [facility]burgComment on above:Performed By: #### CBC #### [facility] [address] [place] [address] Dr. Luis Carlos FletcherWBC4.0 103/ulNormal4.0-11.0The [facility]amisburgComment on above: Performed By: #### CBC #### [facility] [address] [place] [address] Dr. Luis Carlos Hoyt CHEST WO W CONon 86-84-5280TMK CHEST WO W CONEXAMINATION: CTA CHEST WO W CON HISTORY: SHORTNESS [...] Electronically authenticated by: MARCO HO Date: 2022-06-12 22:21[facility]POINT [facility] GLUCOSEon 23-89-7427Suvmipo [Mass/Vol]129 mg/dL Critically hnwz32-684RkgMetrohealth Parma Medical CenterComment on above:Performed By: #### BMP #### [facility] [address] [address] [address] Luis Carlos FletcherGlucose [Mass/Vol]194 mg/dLCritically nkao64-186KxpMetrohealth Parma Medical CenterComment on above:Performed By: #### POCGLUC #### [facility] [address] [address] [address] Luis Carlos FletcherGlucose [Mass/Vol]142 mg/dLCritically aamq56-144OneMetrohealth Par[facility] Medical CenterComhenry [facility]d [facility] on above:Performed By: #### POCGLUC #### [facility] [address] [address] [address] Luis Carlos FletcherGlucose [Mass/Vol]142 mg/dLCritically qqst32-233PfsMetrohealth Parma Medical CenterComment on above:Performed By: #### HSTROPN #### [facility] [address] [address] [address] Luis Carlos FletcherPROF CHEM 8 (BAS METB)on 52-07-8287Jtmil gap [Moles/Vol]9.4 mmol/LNormalMetrohealth Parma Medical CenterComhenry [facility] on above:Performed By: #### POCGLUC #### [facility] [address] [address] [address] Luis Carlos FletcherCalcium [Mass/Vol]8.5 mg/dLNormal8.5-10.1[facility] Comment on above:Performed By: #### POCGLUC #### [facility] [address] [address] [address] Luis Carlos FletcherChloride [Moles/Vol]103 mmol/CLrkeit44-197Obx [facility] Comment on above:Performed By: #### POCGLUC #### [facility] [address] [address] [address] Luis Carlos FletcherCO2 [Moles/Vol]33.2 mmol/LCritically high21.0-32.0[facility] Parma Medical CenterComment on above:Performed By: #### POCGLUC #### [facility] [address] [address] [address] Luis Carlos FletcherCreatinine [Mass/Vol]0.76 mg/dLNormal0.70-1.30The [facility]burgComment on above:Performed By: #### POCGLUC #### [facility] [address] [address] [address] Luis Carlos AlmazanGFR-AF PAPUA NEW GUINEAN>60Normal>=60The [facility]burgComment on above:Performed By: #### POCGLUC #### [facility] [address] [place] [address] Dr. Luis Carlos AlmazanGFR-NON AF PAPUA NEW GUINEAN>60Normal>=60The [facility]burgComment on above:Performed By: #### POCGLUC #### [facility] [address] [address] [address] Luis Carlos FletcherGlucose [Mass/Vol]192 mg/dLCritically wycx69-442Zlu [facility]burgComment on above:Performed By: #### POCGLUC #### [facility] [address] [address] [address] Luis Carlos FletcherPotassium [Moles/Vol]4.6 mmol/LNormal3.5-5.1The [facility] Comment on above:Performed By: #### POCGLUC #### [facility] [address] [address] [address] Luis Carlos FletcherSodium [Moles/Vol]141 mmol/DLcqwvm618-126Mky [facility] Comment on above:Performed By: #### POCGLUC #### [facility] [address] [place] [address] Dr. Luis Carlos Mccann nitrogen [Mass/Vol]14.0 mg/dLNormal7.0-18.0The [facility]burgComment on above:Performed By: #### POCGLUC #### [facility] [address] [place] [address] Dr. Luis Carlos Mccann nitrogen/Creatinine [Mass ratio]18.4 mg/mgNormalThe [facility]burgComment on above:Performed By: #### POCGLUC #### [facility] [address] [place] [address] Dr. Luis Carlos Jackson 60-31-8753Kjbrotjprjj peptide B (Bld) [Mass/Vol]78.0 pg/mL Normal<=900.0The [facility]amisburgComment on above:Performed By: #### POCGLUC #### [facility] [address] [place] [address] Dr. Luis Carlos Francisco AUTO DIFFon 40-78-1388JDOL #0.0 103/ulNormal0.0-0.1The [facility]burgComment on above:Performed By: #### POCGLUC #### [facility] [address] [place] [address] Dr. Luis Carlos FletcherBasophils/100 WBC (Bld)0.5 %Normal0.2-2.0[facility] Comment on above:Performed By: #### POCGLUC #### [facility] [address] [place] [address] Dr. Luis Carlos Cowan #0.1 103/ulNormal0.0-0.7The [facility]burgComment on above: Performed By: #### POCGLUC #### [facility] [address] [place] [address] Dr. Luis Carlos Almazanosinophils/100 WBC (Bld)1.2 %Normal0.9-7.0[facility] Comment on above:Performed By: #### POCGLUC #### [facility] [address] [place] [address] Dr. Luis Carlos Almazanrythrocyte distribution width (RBC) [Ratio]13.4 %Doinor11.0-15.0 The [facility]burgComment on above:Performed By: #### POCGLUC #### [facility] [address] [place] [address] Dr. Luis Carlos FletcherHematocrit (Bld) [Volume fraction]45.1 %Dlrswp75.0-54.0The [facility] HospitalComment on above:Performed By: #### POCGLUC #### [facility] [address] [place] [address] Dr. Luis Carlos FletcherHemoglobin (Bld) [Mass/Vol]15.1 g/uEFmraqk89.0-18.0The [facility]burgComment on above:Performed By: #### POCGLUC #### [facility] [address] [place] [address] Dr. Luis Carlos Galeano #0.01 10e3/ulNormal0.00-0.03The [facility]burgComment on above:Performed By: #### POCGLUC #### [facility] [address] [place] [address] Dr. Luis Carlos Galeano %0.2 %Normal0.0-0.5The [facility]burgComment on above: Performed By: #### POCGLUC #### [facility] [address] [place] [address] Dr. Luis Carlos GarzaH #1.8 103/ulNormal1.2-3.8The [facility]burgComment on above:Performed By: #### POCGLUC #### [facility] [address] [place] [address] Dr. Luis Carlos Faulknermphocytes/100 WBC (Bld)27.9 %Pzlfhe87.5-60.0The [facility]burgComment on above:Performed By: #### POCGLUC #### [facility] [address] [place] [address] Dr. Luis Carlos FletcherMANUAL DIFF REQNONormalThe [facility]burgComment on above: Performed By: #### POCGLUC #### [facility] [address] [address] [address] Luis Carlos Tamayo (RBC) [Entitic mass]30.8 okHdfuzf82.9-34.0The [facility]burgComment on above:Performed By: #### POCGLUC #### [facility] [address] [address] [address] Luis Carlos Tamayo (RBC) [Mass/Vol]33.5 g/kXWegdmh77.9-35.2The [facility] HospitalComment on above:Performed By: #### POCGLUC #### [facility] [address] [place] [address] Dr. Luis Carlos Tamayo (RBC) [Entitic vol]91.9 cQLvdisd31.0-94.0The [facility]burgComment on above:Performed By: #### POCGLUC #### [facility] [address] [place] [address] Dr. Luis Carlos Jules #0.7 103/ulNormal0.3-0.8The [facility]burgComment on above:Performed By: #### POCGLUC #### [facility] [address] [place] [address] Dr. Luis Carlos Mccallumocytes/100 WBC (Bld)11.2 %Normal1.7-12.0The [facility] Comment on above:Performed By: #### POCGLUC #### [facility] [address] [place] [address] Dr. Luis Carlos Thompson #3.8 103/ulNormal1.4-6.5The [facility]burgComment on above:Performed By: #### POCGLUC #### [facility] [address] [place] [address] Dr. Luis Carlos Babcockutrophils/100 WBC (Bld)59.0 %Embqck30.0-75.0The [facility]burgComment on above:Performed By: #### POCGLUC #### [facility] [address] [place] [address] Dr. Luis Carlos Tinajero mean volume (Bld) [Entitic vol]10.5 fLNormal9.5-13.5The [facility]burgComment on above:Performed By: #### POCGLUC #### [facility] [address] [place] [address] Dr. Luis Carlos FletcherPLT134 103/ulCritically jnj267-455Ytc Salem City Hospitalment on above:Performed By: #### POCGLUC #### [facility] [address] [place] [address] Dr. Luis Carlos FletcherRBC4.91 106/ulNormal4.70-6.10The [facility]burgComment on above:Performed By: #### POCGLUC #### [facility] [address] [place] [address] Dr. Luis Carlos FletcherWBC6.5 103/ulNormal4.0-11.0The Metro[facility] Systemment on above: Performed By: #### POCGLUC #### [facility] [address] [place] [address] Dr. Luis Carlos Lomax-DIMERon 04-96-9106E-DIMER0.85 mg/L FEUCritically high<=0.59The [facility] on above:Performed By: #### BMP #### [facility] [address] [place] [address] Dr. Luis Carlos Lomax-DIMER COMMENTSSEE [facility]Comhen[facility] on above:Result Comment: Increases in D-Dimer concentration observed with thromboembolic events [...] stress, and generalized hospitalization. Performed By: #### BMP #### [facility] [address] [place] [address] Dr. Luis Carlos FletcherPH VENOUS BLOODon 21-85-7070ORQ5 TMNLBE57.8 peHgMnnske84.0-52.0 The [facility]burgComment on above:Performed By: #### BMP #### [facility] [address] [address] [address] Luis Carlos FletcherpH VENOUS7.479Pqkpyv9.330-7.430The [facility]burgComhen[facility] on above:Performed By: #### BMP #### [facility] [address] [address] [address] Luis Carlos FletcherPOINT OF CARE GLUCOSEon 54-78-4731Nbbarti [Mass/Vol]224 mg/dL Critically oghb93-218Ztj [facility]burgComment on above:Performed By: #### POCGLUC #### [facility] [address] [place] [address] Dr. Luis Carlos FletcherPROF 14(COMP METB)on 12-87-0474Sdqanmu [Mass/Vol]3.4 g/dLNormal 3.4-5.0The [facility]Comhen[facility] on above:Performed By: #### POCGLUC #### [facility] [address] [place] [address] Dr. Luis Carlos FletcherAlbumin/Globulin [Mass ratio]1.1 {ratio}NormalThe [facility]burgComhen[facility] on above:Performed By: #### POCGLUC #### [facility] [address] [place] [address] Dr. Luis Carlos Diop [Catalytic activity/Vol]79 U/ISpcitm66-274Jqt [facility] on above:Performed By: #### POCGLUC #### [facility] [address] [place] [address] Dr. Luis Carlos Ortiz [Catalytic activity/Vol]45 U/URsxclh87-62Lkj [facility]Com[facility] on above:Performed By: #### POCGLUC #### [facility] [address] [place] [address] Dr. Luis Carlos Freeman gap [Moles/Vol]8.9 mmol/LNormalThe [facility]Com[facility] on above:Performed By: #### POCGLUC #### [facility] [address] [place] [address] Dr. Luis Carlos Bourne [Catalytic activity/Vol]35 U/TPdebwi96-02Znv [facility] HospitalComment on above:Performed By: #### POCGLUC #### [facility] [address] [address] [address] Luis Carlos FletcherBilirubin [Mass/Vol]0.4 mg/dLNormal0.2-1.0The [facility] Comment on above:Performed By: #### POCGLUC #### [facility] [address] [address] [address] Luis Carlos FletcherCalcium [Mass/Vol]8.6 mg/dLNormal8.5-10.1[facility] Comment on above:Performed By: #### POCGLUC #### [facility] [address] [address] [address] Luis Carlos FletcherChloride [Moles/Vol]101 mmol/EEskesu58-862Vtt [facility] Comment on above:Performed By: #### POCGLUC #### [facility] [address] [address] [address] Luis Carlos FletcherCO2 [Moles/Vol]34.0 mmol/LCritically high21.0-32.0The [facility]burgComment on above:Performed By: #### POCGLUC #### [facility] [address] [address] [address] Luis Carlos FletcherCreatinine [Mass/Vol]0.72 mg/dLNormal0.70-1.30The [facility]burgComment on above:Performed By: #### POCGLUC #### [facility] [address] [address] [address] Luis Carlos AlmazanGFR-AF PAPUA NEW GUINEAN>60Normal>=60The [facility]Comment on above:Performed By: #### POCGLUC #### [facility] [address] [address] [address] Luis Carlos AlmazanGFR-NON AF PAPUA NEW GUINEAN>60Normal>=60The [facility]burgComment on above:Performed By: #### POCGLUC #### [facility] [address] [place] [address] Dr. Luis Carlos FletcherGlobulin (S) [Mass/Vol]3.1 g/dLNormalThe [facility]burgComment on above:Performed By: #### POCGLUC #### [facility] [address] [address] [address] Luis Carlos FletcherGlucose [Mass/Vol]122 mg/dLCritically vfai39-200Pcn [facility]burgComment on above:Performed By: #### POCGLUC #### [facility] [address] [address] [address] Luis Carlos FletcherPotassium [Moles/Vol]3.9 mmol/LNormal3.5-5.1The [facility] Comment on above:Performed By: #### POCGLUC #### [facility] [address] [address] [address] Luis Carlos FletcherProtein [Mass/Vol]6.5 g/dLNormal6.4-8.2[facility] Comment on above:Performed By: #### POCGLUC #### [facility] [address] [address] [address] Luis Carlos FletcherSodium [Moles/Vol]140 mmol/ZRgnnno338-738Dws [facility] Comment on above:Performed By: #### POCGLUC #### [facility] [address] [address] [address] Luis Carlos FletcherUrea nitrogen [Mass/Vol]9.0 mg/dLNormal7.0-18.0The [facility]burgCom[facility] on above:Performed By: #### POCGLUC #### [facility] [address] [address] [address] Luis Carlos FletcherUrea nitrogen/Creatinine [Mass ratio]12.5 mg/mgNoCherrington HospitalComment on above:Performed By: #### POCGLUC #### [facility] [address] [address] [address] Luis Carlos FletcherRESPIRATORY PANEL PLUSon 97-07-7916BqcxihtirlVlx detectedNormal NOT DETECTEDThe [facility]burgComhen[facility] on above:Performed By: #### RSPLUS #### [facility] [address] [address] [address] Luis Carlos Snow. ParapertusisNot detectedNormalNOT DETECTEDThe [facility] HospitalComment on above:Performed By: #### RSPLUS #### [facility] [address] [address] [address] Luis Carlos Snow. PertussisNot detectedNormalNOT DETECTEDThe [facility] Comment on above:Performed By: #### RSPLUS #### [facility] [address] [address] [address] Luis Carlos FletcherChlamydia PneumoniaeNot detectedNormalNOT DETECTEDThe [facility]burgComment on above:Performed By: #### RSPLUS #### [facility] [address] [address] [address] Luis Carlos FletcherCoronavirus 229ENot detectedNormalNOT DETECTEDThe [facility]burgComment on above:Performed By: #### RSPLUS #### [facility] [address] [address] [address] Luis Carlos FletcherCoronavirus CSL8Lii detectedNormalNOT DETECTEDThe [facility]burgComment on above:Performed By: #### RSPLUS #### [facility] [address] [address] [address] Luis Carlos FletcherCoronavirus PL69Fps detectedNormalNOT DETECTEDThe [facility]burgComment on above:Performed By: #### RSPLUS #### [facility] [address] [address] [address] Luis Carlos FletcherCoronavirus HZ91Vqr detectedNormalNOT DETECTEDThe [facility]burgComment on above:Performed By: #### RSPLUS #### [facility] [address] [address] [address] Luis Carlos Valderrama A H1Not detectedNormalNOT DETECTEDThe [facility] Comment on above:Performed By: #### RSPLUS #### [facility] [address] [address] [address] Luis Carlos Valderrama A H1 2009Not detectedNormalNOT DETECTEDThe [facility]burgComment on above:Performed By: #### RSPLUS #### [facility] [address] [address] [address] Luis Carlos Vadlerrama A H3Not detectedNormalNOT DETECTEDThe [facility] Comment on above:Performed By: #### RSPLUS #### [facility] [address] [address] [address] Luis Carlos Valderrama BNot detectedNormalNOT DETECTEDThe [facility] Comment on above:Performed By: #### RSPLUS #### [facility] [address] [address] [address] Luis Carlos AlbertoneumovirusNot detectedNormalNOT DETECTEDThe [facility]burgComment on above:Performed By: #### RSPLUS #### [facility] [address] [address] [address] Luis Carlos Schmidt. PneumoniaeNot detectedNormalNOT DETECTEDThe [facility]burgComment on above:Performed By: #### RSPLUS #### [facility] [address] [address] [address] Luis Carlos Pope 1Not detectedNormalNOT DETECTEDThe [facility]burgComment on above:Performed By: #### RSPLUS #### [facility] [address] [address] [address] Luis Carlos Pope 2Not detectedNormalNOT DETECTEDThe [facility]burgComhen[facility] on above:Performed By: #### RSPLUS #### [facility] [address] [address] [address] Luis Carlos Pope 3Not detectedNormalNOT DETECTEDThe [facility]burgComment on above:Performed By: #### RSPLUS #### [facility] [address] [address] [address] Luis Carlos Pope 4Not detectedNormalNOT DETECTEDThe [facility]burgComhen[facility] on above:Performed By: #### RSPLUS #### [facility] [address] [address] [address] Luis Carlos FletcherRhshruti/EnterovirusNot detectedNormalNOT DETECTEDThe [facility]burgCom[facility] on above:Performed By: #### RSPLUS #### [facility] [address] [place] [address] Dr. Luis Carlos Rodrigues Header 1RESPIRATORY PANEL: [facility]ESL[facility] Comment on above:Performed By: #### RSPLUS #### [facility] [address] [place] [address] Dr. Luis Carlos Rodrigues Header 2RESPIRATORY PANEL: BACTERIANoCherrington HospitalComment on above:Performed By: #### RSPLUS #### [facility] [address] [place] [address] Dr. Luis Carlos FletcherRSVNot detectedNormalNOT DETECTEDThe [facility]burgCom[facility] on above:Performed By: #### RSPLUS #### [facility] [address] [place] [address] Dr. Luis Carlos Murillo-CoV-2 (COVID-19) RNA AVRIL+probe Ql (Unsp spec)Not detected NormalNOT DETECTEDThe [facility]burgComment on above:Performed By: #### RSPLUS #### [facility] [address] [place] [address] Dr. Luis Carlos Aguirre, HIGH SENSITIVITYon 99-90-3094WYCSRH1.5 pg/mLNormal 4.0-76.1The [facility] on above:Result Comment: CUT-OFF POINTS HAVE BEEN ESTABLISHED BASED ON THE FOURTH UNIVERSAL DEFINITIONS OF MYOCARDIAL INFARCTION. THE UPPER REFERENCE LIMIT (URL) OF TROPONIN, DEFINED THE 99TH PERCENTILE OF cTnI DISTRIBUTION IN A REFERENCE POPULATION, HAS BEEN CONFIRMED THE DECISION THRESHOLD FOR [place] DIAGNOSIS.Performed By: #### POCGLUC #### [facility] [address] [place] [address] Dr. Luis Carlos FletcherXR CHEST 1 Von 80-16-1364AR CHEST 1 VEXAMINATION: XR CHEST 1 V HISTORY: SHORTNESS OF BREATH COMPARISON: No relevant comparison available. FINDINGS: LUNGS: No significant pulmonary parenchymal abnormalities. VASCULATURE: No increased pulmonary vasculature. PLEURA: No pneumothorax, effusion, or pleural thickening. CARDIAC: No cardiomegaly or cardiac silhouette abnormality. MEDIASTINUM: No visible mass or adenopathy. BONES: No fracture or visible bone lesion. OTHER: Negative. IMPRESSION: 1. No acute cardiopulmonary process. Electronically authenticated by: CHRISTIANO CARRION Date: 2022-06-12 16:59[facility] Vital Signs Date TimeVital SignValuePerforming KyhhhsfwbQlwshtwb03-05-5605 10:47-0400Body ccycxj588.8 Cary Burns PA Work Phone: NOE[facility] HospitalRkemwtatyn67-41-1390 10:47-0400Body mass index (BMI) [Ratio]22.96 kg/m2Caterina GARG Work Phone: NOE[facility] HospitalNwcniupktz85-35-3562 10:47-0400Body temperature 98.1 [degF]Caterina GARG Work Phone: NO[facility] HospitalIxeanlcjpg37-89-8222 10:47-0400Body skeaju47.58 kgCaterina GARG Work Phone: NO[facility] HospitalXnncnpvxfg45-01-6596 10:47-0400Diastolic blood foxdxosu19 mm[Hg]Caterina GARG Work Phone: NO[facility] HospitalOkfpvusffd84-76-0196 10:47-0400Heart rate83 /min Caterina GARG Work Phone: NO[facility] HospitalNtvwgxksfp97-16-5518 10:47-3795ErO3% (BldA) [Mass fraction]98 %Caterina GARG Work Phone: NOE[facility] HospitalHccvbbeoao77-00-1234 10:47-0400Systolic blood eatxevey131 mm[Hg]Caterina Burns PA Work Phone: NOE[facility] HospitalZumvwontng11-10-7031 13:41-0400Body temperature 37.0 {degrees_C}Eber Pompa Work Phone: [phone]-Nczg [facility] Work Phone: Comment on above:NOTE: PATIENT RESULTS ARE NOT CORRECTED FOR TEMPERATURE.11-17-2022 13:41-6024QsC8% (BldA) [Mass fraction]97 % Eber Pompa Work Phone: [phone]-Qobp [facility] Work Phone: Encounters Encounter DateEncounter TypeCare ProviderFacilityStart: 01-27-2025 End: 39-87-7745Txolzt Curtis Pompa DO Work Phone: [facility] 230Comment on above:COPD (chronic obstructive pulmonary disease) with chronic bronchitis (HCC) (Primary Dx)Start: 09-09-2024 End: 89-04-6874Jbmraq flowsGera GARG Work Phone: [facility] 230Start: 09-09-2024 End: 98-88-0265Mqilna flowsGera GARG Work Phone: [facility] 230Start: 09-09-2024 End: 35-79-2003Yvcqa of hemosiderin, Kathy GARG Work Phone: [facility] Work Phone: Start: 09-09-2024 End: 73-48-5607Veuynub encounter Nasir GARG Work Phone: [facility] 230Comment on above:Routine general medical examination at health care facility (Primary Dx); Screening for deficiency anemia; Screening for diabetes mellitus (DM); Screening for cardiovascular condition; Screening for prostate cancer; COPD (chronic obstructive pulmonary disease) with chronic bronchitis (HCC); Primary hypertensionStart: 09-09-2024 End: 07-11-1329ykbqizlowjPIOY M MYERSNot AvailableStart: 08-26-2024 End: 59-56-4661Zmygztsvh Jed GARG Work Phone: [facility] 230Comment on above:billingStart: 07-10-2024 End: 39-88-8160TlrdqbUydo J Bruner DO Work Phone: [facility] 230Comment on above:COPD (chronic obstructive pulmonary disease) with chronic bronchitis (CMS/HCC)Start: 06-08-2023 End: 93-20-1572Pecvxkhzn Result EncounterGeneric External Data ProviderNOMS External Department UnsolicitedStart: 06-08-2023 End: 32-15-9634Yyuoummzh Result EncounterGeneric External Data ProviderNOMS External Department UnsolicitedStart: 02-25-2023 End: 93-88-6771Cloiysmmb Result EncounterGeneric External Data ProviderNOMS External Department UnsolicitedStart: 02-25-2023 End: 44-30-6368Uzpoqdkyw Result EncounterGeneric External Data ProviderNOMS External Department UnsolicitedStart: 06-47-4908Iqyux UpdatePadara Pompa Work Phone: [phone]-C[facility] Work Phone: Start: 27-38-6809Ouledwu encounter procedurePadara Pompa Work Phone: [phone]-Urek [facility] [address] Work Phone: start: 16-45-4057gqltenkgvzYD JANEL NEVILLE [facility]tart: 10-65-3226QJHCGYpnznw Schilz DO Work Phone: [phone]-Oegf [facility] Work Phone: Start: 07-10-2022 End: 85-37-8937orvefbjethFJ EBER POMPAFacility:Q9Hzjgr: 06-12-2022 End: 65-33-9011Qtshexnegn and management of inpatientDR EBER Montoyacility:H1 Procedures DateProcedureProcedure DetailPerforming ClinicianStart: 99-88-6790RA CHEST WO CONGeneric External Data ProviderStart: 70-31-0249Dik imaging skull base to mid-thighGeneric External Data Provider Plan of Treatment DateCare ActivityDetailAuthorStart: 06-24-2026Medicare Annual Wellness (AWV) Medicare Annual Wellness (AWV)[facility] HealthcareStart: 69-21-3999VHEAR-19 Vaccine ( season)COVID-19 Vaccine ( season)[facility] HealthcareStart: 28-82-9789Xkpgfnnpm vaccinationNOWI HealthcareStart: 09-09-2024 End: 65-00-3488CHS W Auto Differential panel - BloodCBC and differential Lab Routine Routine general medical examination at health care facility Screening for deficiency anemia Screening for diabetes mellitus (DM) Screening for cardiovascular condition Screening for prostate cancer COPD (chronic obstructive pulmonary disease) with chronic bronchitis(HCC) Primary hypertension Expected: 09/09/2024 (Approximate), Expires: 09/09/2025[facility] Work Phone: Comment on above:Expected: 09/09/2024 (Approximate), Expires: 09/09/2025Start: 09-09-2024 End: 88-74-6142Mivomzvsusxwl metabolic 2000 panel - Serum or PlasmaComprehensive metabolic panel Lab Routine Routine general medical examination at health care facility Screening for deficiency anemia Screening for diabetes mellitus (DM) Screening for cardiovascularcondition Screening for prostate cancer COPD (chronic obstructive pulmonary disease) with chronic bronchitis (HCC) Primary hypertension Expected: 09/09/2024 (Approximate), Expires: 09/09/2025[facility] HealthcareComment on above:Expected: 09/09/2024 (Approximate), Expires: 09/09/2025Start: 09-09-2024 End: 80-53-4315Ustly 1996 panel - Serum or PlasmaLipid panel Lab Routine Routine general medical examination at health care facility Screening for deficiency anemia Screening for diabetes mellitus (DM) Screening for cardiovascular condition Screening for prostate cancer COPD (chronic obstructive pulmonary disease) with chronic bronchitis (HCC) Primary hypertension Expected: 09/09/2024 (Approximate), Expires: 09/09/2025[facility] HealthcareComment on above:Expected: 09/09/2024 (Approximate), Expires: 09/09/2025Start: 09-09-2024 End: 84-39-0245ZCT, total and freePSA, total and free Lab Routine Routine general medical examination at health care facility Screening for deficiency anemia Screening for diabetes mellitus (DM) Screening for cardiovascular conditionScreening for prostate cancer COPD (chronic obstructive pulmonary disease) with chronic bronchitis (HCC) Primary hypertension Expected: 09/09/2024 (Approximate), Expires: 09/09/2025[facility] HealthcareComment on above:Expected: 09/09/2024 (Approximate), Expires: 09/09/2025Start: 09-09-2024 End: 48-96-1283Zhmahnq encounter ujguldsba16/24/2025 11:00 AM EDT Office Visit [facility] [address] [place] [id number] Burns, Caterina M, PA [address] [place] [address] [facility] 230Comment on above:ArrivedStart: 09-02-2024 End: 75-71-3011Bxurcbm encounter vobryloqf61/17/2025 11:00 AM EDT Office Visit [facility] [address] [place] [phone] Caterina Burns PA [address] [place] [address] [facility] 230Start: 03-22-2025Medicare Annual Wellness (AWV) Medicare Annual Wellness (AWV)[facility] HealthcareStart: 00-55-7027YSJ, Provider: CECI MANLEY [address],PULM, Status: Pen, Time: 2:30 PMPST, Provider: CECI MANLEY [address],PULM, Status: Pen, Time: 2:30 PMMG-Pulm [facility] Work Phone: Start: 77-72-0261AGX, Provider: CECI MANLEY 6TH FLR PFT RM 2,PULM, Status: Pen, Time: 1:30 PMPFT, Provider: CECI BOLMAILE 6TH FLR PFT RM 2,PULM, Status: Pen, Time: 1:30 PMMG-Pulm [facility] Work Phone: Start: 41-42-0608TSJ, Provider: CECI MANLEY 6TH FLR PFT RM 2,PULM, Status: Pen, Time: 1:15 PMABG, Provider: CECI BOLMAILE 6TH FLR PFT RM 2,PULM, Status: Pen, Time: 1:15 PMMG-Pulm [facility] Work Phone: Start: 71-31-5263Lhgmsvzap for malignant neoplasm of colonN[facility]S Healthcare Immunizations Immunization DateImmunizationNotesCare YazerctzMdmtocxf14-67-6189Youobykqrwrz Conjugate PCV 20Paul Carina DO Work Phone: [facility] Payers DatePayer CategoryPayerPolicy [id number] (Managed Care) [id number] [id number] [id number] [id number] Social History DateTypeDetailFacilityStart: 10-26-2022 End: 95-78-3213Apbxsym smoking status NHISEx-smokerNOMS Healthcare End: 39-42-9389Ugmdmqx of tobacco useCurrent smokerNOMS Healthcare End: 86-18-0766Vviuydt of tobacco useCigarette SmokerNOMS HealthcareStart: 34-99-6439Mvlylfl use and exposureSmokeless tobacco non-userNOMS Healthcare Start: 06-14-2023 End: 45-42-7984Yhpckbhna beverage intakeLifetime non-drinker (finding)[facility] HealthcareStart: 06-14-2023 End: 39-98-0639Zrdlvyd of Social functionNOMS HealthcareStart: 06-14-2023 End: 51-50-1126Tlsgghv use panelNOMS HealthcareStart: 80-18-3984Vzf assigned at birthNot on fileNOWI HealthcareHow often do you need to have someone help you when you read instructions, pamphlets, or other written material from your doctor or pharmacy [SILS]AlwaysNOWI HealthcareWithin the last year, have you been afraid of your partner or ex-partner?NoNOMS HealthcareStart: 73-75-1117Ha you belong to any clubs or organizations such as shinto groups, unions, fraternal or athletic groups, or school groups?Patient declinedNOWI Healthcare Are you now , , , , never or living with a partner?MarriedNOWI HealthcareHow often to you have a drink containing alcohol?NeverNOWI HealthcareHow hard is it for you to pay for the very basics like food, housing, medical care, and heatingHardNOWI HealthcareDo you feel stress - tense, restless, nervous, or anxious, or unable to sleep at night because yourmind is troubled all the time - these days [OSQ]Very muchNOWI Healthcare(I/We) worried whether (my/our) food would run out before (I/we) got money to buy more.Sometimes trueNOWI HealthcareStart: 13-72-2075Plnkrun use and exposureFormer smokeless tobacco userMercy hospital springfield Functional Status FdwiJwlsaenhezKgqatsEywskynu45-95-2453Ugkclve Health Questionnaire 2 item (PHQ- 2) [Reported][facility] springfieldQixtvxinai59-63-6105Fxwif score [AUDIT-C]0 09/01/2024 11:28 AM T Rylee CardozaEastern Missouri State HospitalGypsouyfrq64-67-8095Avu often do you have a drink containing alcohol?Never 09/01/2024 11:28 AM Clementine Dolan [facility] HealthcareKkrgdqgifr17-60-5734Dtdxayovwx statusPatient does not drink 09/01/2024 11:28 AM Clementine Dolan Patient does not drinkMercy hospital springfieldAvtzvccpkh97-67-1775Lye often do you have 6 or more drinks on 1 occasion?Never 09/01/2024 11:28 AM EDClementine Gotti [facility] HealthcareXsjhckbdpw30-40-1005Sddqife Health Questionnaire 2 item (PHQ-2) [Reported][facility] Clinical Notes 08-26-2024 to 01-28-2025 Note Date & YsbcMfoxWcnvzfym82-82-7831 Telephone encounter Note* Telephone Encounter - Melba Sandoval - 01/28/2025 10:26 AM EST Pt daughter called requesting for the nebulizer tubing and mouthpiece rx sent to [facility] in [place] since his tubing is broken. Pt daughter would like for the DDM in [place] to be taken off of the Pt's chart. Pt's daughter would like to pick it up today after work at 2:30 so she can take it to him. [facility] springfieldXdawkzjafy59-02-6858 Miscellaneous Notes* Telephone Encounter - Melba Sandoval - 01/28/2025 10:26 AM EST Pt daughter called requesting for the nebulizer tubing and mouthpiece rx sent to [facility] in [place] since his tubing is broken. Pt daughter would like for the DDM in [place] to be taken off of the Pt's chart. Pt's daughter would like to pick it up today after work at 2:30 so she can take it to him. * Telephone Encounter - Sheryl Nunez - 01/27/2025 8:[address] Pompa has sent Rx. * Telephone Encounter - Imani Alicea - 01/27/2025 7:29 PM EST pts daughter called and pt needs nebulizer tubing and mouthpiece rx sent to [facility] as his tubing is broken. please advise. Thank you documented in this encounterNOEastern Missouri State HospitalPeqvyzteqo01-35-1140 Telephone encounter Note* Telephone Encounter - Sheryl Nunez - 01/27/2025 8:[address] Pompa has sent Rx. [facility] springfieldBjkhcoxlgs89-00-0079 History of Present illness Narrative* Eber Pompa DO - 01/27/2025 8:10 PM EST Sent tubing Rx. documented in this encounterMercy hospital springfieldKmbppfpgsh71-51-2656 Telephone encounter Note* Telephone Encounter - Imani Nixon - 01/27/2025 7:29 PM EST pts daughter called and pt needs nebulizer tubing and mouthpiece rx sent to [facility] as his tubing is broken. please advise. Thank you [facility] springfieldXvblgkbitn85-32-2025 History of Present illness Narrative* FOREST Saenz - 09/09/2024 11:00 AM EDT Images from the original note were not included. Subjective Chief Complaint: Maxwell Louie III is an 74 y.o. male here for an annual wellness visit. I have reviewed and reconciled the history and medication list with the patient today. Current Outpatient Medications Medication Sig Dispense Refill amLODIPine (Norvasc) 5 MG tablet Take 1 tablet (5 mg) by mouth in the morning. 90 tablet 3 budesonide (Pulmicort) 0.5 MG/2ML nebulizer solution USE 1 VIAL IN NEBULIZER TWICE DAILY 300 mL 0 escitalopram (Lexapro) 10 MG tablet TAKE 1 TABLET BY MOUTH IN THE MORNING 90 tablet 3 guaiFENesin (Mucus Relief) 600 MG 12 hr tablet TAKE 1 TABLET BY MOUTH TWICE DAILY NEEDED for thick sputum, drink plenty OF fluids. do not crush, chew, or split 60 tablet 0 hydrOXYzine HCl (Atarax) 25 MG tablet TAKE 1 TABLET BY MOUTH EVERY 6 HOURS NEEDED 120 tablet 3 ipratropium-albuterol (Duo-Neb) 0.5-2.5 mg/3 mL nebulizer solution USE 1 AMPULE IN NEBULIZER EVERY 6 HOURS NEEDED FOR SHORTNESS OF BREATH 180 mL 0 LORazepam (Ativan) 0.5 MG tablet Take 1 tablet (0.5 mg) by mouth every 8 (eight) hours if needed for anxiety 30 tablet 0 montelukast (Singulair) 10 MG tablet TAKE 1 TABLET BY MOUTH IN THE EVENING 90 tablet 3 Melatonin 10 MG tablet dispersible 1 tablet at hs prn insomnia (Patient not taking: Reported on 09/09/2024) 30 tablet 2 nicotine (Nicoderm CQ) 21 MG/24HR patch Place 1 patch on the skin each morning and remove at hs (Patient not taking: Reported on 09/09/2024) 30 patch 2 No current facility-administered medications for this visit. Review of Systems All other systems reviewed and are negative. List of current healthcare providers: Patient Care Team: Eber Pompa DO as PCP - General (Family Medicine) Mansoor Blackburn DO as Referring Physician (Pulmonary Disease) Medicare Annual Visit Over the past 2 weeks, how often have you been bothered by any of the following problems? Little interest or pleasure in doing things: Several days Feeling down, depressed, or hopeless: Nearly every day Patient Health Questionnaire-2 Score: 4 Over the past 2 weeks, how often have you been bothered by any of the following problems? Trouble falling or staying asleep, or sleeping too much: Nearly every day Feeling tired or having little energy: Nearly every day Poor appetite or overeating: Nearly every day Feeling bad about yourself - or that you are a failure or have let yourself or your family down: Several days Trouble concentrating on things, such as reading the newspaper or watching television: Several days Moving or speaking so slowly that other people could have noticed? Or the opposite - being so fidgety or restless that you have been moving around a lot more than usual.: Several days Thoughts that you would be better off or hurting yourself in some way: Not at all Patient Health Questionnaire-9 Score: 16 Ko Fall Risk History of Falling, Immediate or Within 3 Months: No Secondary Diagnosis: No Ambulatory Aid: Walks without aid/bedrest/nurse assist Intravenous Therapy/Heparin Lock: No Gait/Transferring: Normal/bedrest/immobile Mental Status: Oriented to own ability Ko Fall Risk Score: 0 Health Risk Assessment Form Do you need help eating, bathing, using the toilet, dressing, or getting around your home?: Yes Can you prepare your own meals?: No Can you do your own housework without help?: No Can you shop for groceries or clothes without help?: No Do you exercise for about 20 minutes 3 or more days a week?: No How confident are you that you can control and manage most of your health problems?: Not very confident Can you mange your money, credit cards and accounts, pay bills and taxes?: Yes Vision Screening: Not done Hearing Screening: Not done Cognitive Screening Self Assessment: No overt cognitive deficiency is apparent by direct observation Three Word Registration: Yayo, Lor, Finger Clock Drawing: Normal Clock - 2 Three Word Recall: 2/3 words correct - 2 Total Score (0-5 Points): 4 Pain Assessment Pain Score: 5 - Moderate pain Advance Care Planning Do you have a living will?: No Do you have a medical power of contract attorney?: No Objective BP 112/68 Pulse 83 Temp 98.1 F Ht 5' 10 Wt 160 lb SpO2 98% BMI 22.96 kg/m Physical Exam Constitutional: General: He is not in acute distress. Appearance: Normal appearance. He is ill-appearing (chronically). Interventions: Nasal cannula in place. HENT: Head: Normocephalic and atraumatic. Mouth/Throat: Mouth: Mucous membranes are moist. Eyes: Extraocular Movements: Extraocular movements intact. Neck: Vascular: No carotid bruit. Cardiovascular: Rate and Rhythm: Normal rate and regular rhythm. Pulses: Normal pulses. Heart sounds: No murmur heard. No friction rub. No gallop. Pulmonary: Effort: No respiratory distress. Breath sounds: Normal breath sounds. No wheezing, rhonchi or rales. Abdominal: General: Bowel sounds are normal. There is no distension. Palpations: Abdomen is soft. Tenderness: There is no abdominal tenderness. Musculoskeletal: Right lower leg: No edema. Left lower leg: No edema. Skin: General: Skin is warm and dry. Findings: No rash. Neurological: General: No focal deficit present. Mental Status: He is alert and oriented to person, place, and time. Psychiatric: Mood and Affect: Mood normal. Behavior: Behavior normal. Judgment: Judgment normal. Assessment/Plan The following health maintenance schedule was reviewed with the patient and provided in printed form in the after visit summary: Health Maintenance Topic Date Due Colorectal Cancer Screening Never done Medicare Annual Wellness (AWV) 06/07/2024 Influenza Vaccine (Season Ended) 2024 Pneumococcal Vaccine: 65+ Years Completed Patient Active Problem List Diagnosis Anxiety Chronic obstructive pulmonary disease (HCC) Continue with care team regarding the diagnoses above: Patient here for annual Medicare Wellness visit. Demographics were updated. Self-assessment was completed. Past medical, family and social history were updated. The medication list, including supplements being taken, was updated. A list of other current medical providers was established/updated. Time was spent discussing health maintenance issues, ordering proper testing, and schedule was provided regarding recommended screening. We discussed safety issues and fall risk. Depression screening was completed and addressed. Cognitive function was assessed by direct observation and assessment of ability to perform ADL's and IADL's was done. We also discussed Advanced Directives and code status. The current BMI was provided along with an education packet regarding healthy living and maintenanceof a healthy weight. The BMI will continue to be monitored at routine office visits as well. Major risk factors for chronic disease including family history were discussed. documented in this encounterMercy hospital springfieldZljfyocxql60-85-1937 Telephone encounter Note* Telephone Encounter - Clementine Cardoza - 08/26/2024 3:03 PM EDT Pt's daughter calling to inquire if there is a copay due at his next ov. Checkrd registration and there was no copay showing up. [facility] springfieldTwoxmsxmbw80-59-7882 Miscellaneous Notes* Telephone Encounter - Clementine Cardoza - 08/26/2024 3:03 PM EDT Pt's daughter calling to inquire if there is a copay due at his next ov. Checkrd registration and there was no copay showing up. documented in this [facility] HealthcareEvaluation [facility]* Diagnosis COPD (chronic obstructive pulmonary disease) with chronic bronchitis (CMS/HCC) documented in this encounter [facility] HealthcareEvaluation note* Diagnosis Routine general medical examination at health care facility- Primary Routine general medical examination at a health care facility Screening for deficiency anemia Screening for other and unspecified deficiency anemia Screening for diabetes mellitus (DM) Screening for diabetes mellitus Screening for cardiovascular condition Screening for other and unspecified cardiovascular conditions Screening for prostate cancer Special screening for malignant neoplasm of prostate COPD (chronic obstructive pulmonary disease) with chronic bronchitis (HCC) Primary hypertension Unspecified essential hypertension documented in this encounter [facility]* Diagnosis COPD (chronic obstructive pulmonary disease) with chronic bronchitis (HCC)- Primary documented in this encounter [facility] Summary Purpose Family History No Family History Records FoundNo Family History Records FoundNo Family History Records Found Advance Directives No Advanced Directives Records FoundNo Advanced Directives Records FoundNo Advanced Directives Records Found Additional Source Comments (unrecognized sect ion and content) No Status Records FoundNo Status Records FoundNo Status Records Found INFORMATION SOURCE (unrecogn ized section and content) DATE CREATED AUTHOR 07/12/2022 [facility] DATE CREATED AUTHOR AUTHOR'S ORGANIZ ATION 11/22/2022 [facility] DATE CREATED AUTHOR AUTHOR'S ORGANIZ ATION 09/10/2024 [facility] EPIC Reason for Visit (unrecogniz ed section and content) ReasonCommentsMed RefillReasonOnset DoknDhzqmyfqdiuzcif46/10/2025 Care Teams (unrecognized sec tion and content) Team MemberRelationshipSpecialtyStart DateEnd Date Eber Pompa DO [address] [place] [address] PCP - GeneralFamily Medicine07/25/22 Mansoor Blackburn MD [address] [place] [address] Referring PhysicianPulmonary Disease06/08/23Team MemberRelationshipSpecialtyStart DateEnd Date Eber Pompa DO [address] [place] [address] PCP - GeneralFamily Medicine07/25/22 Mansoor Blackburn DO [address] [place] [address] Referring PhysicianPulmonary Disease06/08/23Team MemberRelationshipSpecialtyStart DateEnd Date Eber Pompa, DO [address] [place] [address] PCP - [facility]07/25/22 Mansoor Blackburn, DO [address] [place] [address] Referring PhysicianPulmonary Disease06/08/23Team MemberRelationshipSpecialtyStart DateEnd Date Eber Pompa, DO [address] [place] [address] PCP - [facility]07/25/22 Mansoor Blackburn, DO [address] [place] [address] Referring PhysicianPulmonary Disease06/08/23Team MemberRelationshipSpecialtyStart DateEnd Date Eber Pompa, DO [address] [place] [address] PCP - [facility]07/25/22 Eber Pompa, DO [address] [place] [address] PCP [place] [address] Mansoor Blackburn, DO [address] [place] [address] Referring PhysicianPulmonary Disease06/08/23Team MemberRelationshipSpecialtyStart DateEnd Date Eber Pompa, DO [address] [place] [address] PCP - [facility]07/25/22 Eber Pompa, DO [address] [place] [address] PCP - Tddluq33/1/23 Mansoor Blackburn P, DO [address] [place] [address] Referring PhysicianPulmonary Disease06/08/23Team MemberRelationshipSpecialtyStart DateEnd Date Eber Pompa, DO [address] [place] [address] PCP - [facility]07/25/22 Eber Pompa, DO [address] [place] [address] PCP - Trevmg54/1/23 Mansoor Blackburn P, DO [address] [place] [address] Referring PhysicianPulmonary Disease06/08/23Team MemberRelationshipSpecialtyStart DateEnd Date Eber Pompa, DO [address] [place] [address] PCP - [facility]07/25/22 Eber Pompa, DO [address] [place] [address] PCP - Wsopdr75/1/23 EdKhadijah kayedusty Li [address] [place] [address] Referring PhysicianPulmonary Disease06/08/23 FOR RECORDS PERTAINING TO PATIENTS WHO ARE [...] BE BASED ON THE PRIMARY CLINICAL RECORDS. [facility]. provides no warranty or guarantee of the accuracy or completeness of information in this document.
--- OUTSIDE RECORDS SUMMARY | 2025-02-18 13:06 | XMS_ITS | Clinical Summary ---
Author Organization [facility] Address [address] [place] [address] Care Team Providers Care Serology Teacher Name Role Phone Eber Pompa DO Primary Care Provider [phone] Estiven Can DO Unavailable [phone] Eber Pompa DO Unavailable [phone] Allergies No known active allergies Medications MedicationSigDispense QuantityRefillsLast FilledStart DateEnd DateStatus nicotine (Nicoderm CQ) 21 MG/24HR patch Indications:Tobacco use disorderPlace 1 patch on the skin each morning and remove at hs 30 patch ctive Additional Information Patient not taking.Reported on 09/09/2024 Melatonin 10 MG tablet dispersible Indications:Primary insomnia1 tablet at hs prn insomnia 30 tablet ctive Additional Information Patient not taking.Reported on 09/09/2024 guaiFENesin (Mucus Relief) 600 MG 12 hr tablet Indications:COPD (chronic obstructive pulmonary disease) with chronic bronchitis (HCC)TAKE 1 TABLET BY MOUTH TWICE DAILY NEEDED for thick sputum, drink plenty OF fluids. do not crush, chew, or split 60 tablet 02/15/2023ctive escitalopram (Lexapro) 10 MG tablet Indications:AnxietyTAKE 1 TABLET BY MOUTH IN THE MORNING 90 tablet 5Active montelukast (Singulair) 10 MG tablet Indications:Allergic rhinitis, unspecified seasonality, unspecified triggerTAKE 1 TABLET BY MOUTH IN THE EVENING 90 tablet 5Active amLODIPine (Norvasc) 5 MG tablet Indications:Primary hypertensionTake 1 tablet (5 mg) by mouth in the morning. 90 tablet /03/2026Active LORazepam (Ativan) 0.5 MG tablet Indications:AnxietyTake 1 tablet (0.5 mg) by mouth every 8 (eight) hours if needed for anxiety 30 tablet 5Active budesonide (Pulmicort) 0.5 MG/2ML nebulizer solution Indications:COPD (chronic obstructive pulmonary disease) with chronic bronchitis (HCC)USE 1 VIAL IN NEBULIZER TWICE DAILY 300 mL 5Active ipratropium-albuterol (Duo-Neb) 0.5-2.5 mg/3 mL nebulizer solution Indications:COPD (chronic obstructive pulmonary disease) with chronic bronchitis (HCC)USE 1 VIAL IN NEBULIZER EVERY 6 HOURS NEEDED FOR SHORTNESS OF BREATH 180 mL 5Active hydrOXYzine HCl (Atarax) 25 MG tablet Indications:Allergic rhinitis, unspecified seasonality, unspecified triggerTAKE 1 TABLET BY MOUTH EVERY 6 HOURS NEEDED 480 tablet 5Active Respiratory Therapy Supplies (Nebulizer/Tubing/Mouthpiece) kit Indications:COPD (chronic obstructive pulmonary disease) with chronic bronchitis (HCC)Tubing, mouthpiece and mask for home nebulizer. 1 kit 5Active Nebulizers [facility] Indications:COPD (chronic obstructive pulmonary disease) with chronic bronchitis (HCC)1 Device 4 (four) times a day as needed (for SOB) 1 Device 5Active hydrOXYzine HCl (Atarax) 25 MG tablet Indications:Allergic rhinitis, unspecified seasonality, unspecified triggerTAKE 1 TABLET BY MOUTH EVERY 6 HOURS NEEDED 480 tablet Discontinued ipratropium-albuterol (Duo-Neb) 0.5-2.5 mg/3 mL nebulizer solution Indications:COPD (chronic obstructive pulmonary disease) with chronic bronchitis (HCC)USE 1 VIAL IN NEBULIZER EVERY 6 HOURS NEEDED FOR SHORTNESS OF BREATH 180 mL Discontinued(Reorder) Respiratory Therapy Supplies (Nebulizer/Tubing/Mouthpiece) kit Indications:COPD (chronic obstructive pulmonary disease) with chronic bronchitis (HCC)Tubing, mouthpiece and mask for home nebulizer. 1 kit Discontinued(Reorder) Active Problems ProblemNoted DateDiagnosed AvnvPheuptt00/10/2023hronic obstructive pulmonary zzalxnb9810/26/2022 Encounters DateTypeDepartmentCare SuyxOgmlcfwonbn96/21/2025Orders Only [facility] [address] [place] [address] Lowell Burns PA COPD (chronic obstructive pulmonary disease) with chronic bronchitis (HCC) (Primary Dx)02/06/2025Orders Only [facility] [address] [place] [address] Lowell Burns PA COPD (chronic obstructive pulmonary disease) with chronic bronchitis (HCC) 02/06/2025Telephone [facility] [address] [place] [address] Eber Pompa, DO Durable Medical Ilcfbyump07/21/2025Refill [facility] [address] [place] [address] Eber Pompa, DO Allergic rhinitis, unspecified seasonality, unspecified dklpbyl8902/03/2025 Telephone [facility] [address] [place] [address] Rae Roper RN Medication Question; Med Opcurq1401/27/2025Orders Only [facility] [address] [place] [address] Eber Pompa, COPD (chronic obstructive pulmonary disease) with chronic bronchitis (HCC) (Primary Dx)01/27/2025Telephone [facility] [address] [place] [address] Eber Pompa, 01/01/2025Telephone [facility] [address] [place] [address] Rae Roper RN Med Zkogov0601/01/2025Refill [facility] [address] [place] [address] Lowell Burns PA COPD (chronic obstructive pulmonary disease) with chronic bronchitis (HCC) 12/11/2024Telephone [facility] [place] [facility] [address] [place] [address] Rae Roper RN Med Refillfrom Last 3 Months Immunizations ImmunizationAdministration DatesNext DuePneumococcal Conjugate PCV Family History Medical HistoryRelationNameCommentsHypertensionFatherAlzheimer's diseaseMother RelationNameStatusCommentsBrotherAliveFatherDeceasedMotherDeceasedSisterAlive Social History Tobacco UseTypesPacks/DayYears UsedDateSmoking Tobacco: JkgcbaNhqraivyou567Sfuj: 2022Smokeless Tobacco: Former Tobacco Cessation:Counseling Given: Not Answered Alcohol UseStandard Drinks/WeekCommentsNever0 (1 standard drink = 0.6 oz pure alcohol)B1300 Health LiteracyAnswerDate RecordedHow often do you need to have someone help you when you read instructions, pamphlets, or other written material from your doctor or pharmacy?Cgdmfy6909/01/2024Humiliation, Afraid, Rape, and Kick questionnaireAnswerDate RecordedWithin the last year, have you been afraid of your partner or ex-partner?No09/01/2024Within the last year, have you been humiliated or emotionally abused in other ways by your partner or ex-partner?No09/01/2024Within the last year, have you been kicked, hit, slapped, or otherwise physically hurt by your partner or ex-partner?No09/01/2024Within the last year, have you been raped or forced to have any kind of sexual activity by your partner or ex-partner?No09/01/2024Social Connection and Isolation Panel AnswerDate RecordedIn a typical week, how many times do you talk on the phone with family, friends, or neighbors?Never09/01/2024How often do you get together with friends or relatives?Never09/01/2024How often do you attend methodist or pentecostalism services?Never09/01/2024Do you belong to any clubs or organizations such as methodist groups, unions, fraternal or athletic groups, or school groups? Patient onncteyd49/16/2025How often do you attend meetings of the clubs or organizations you belong to?Patient myomjsjr20/16/2025re you , , , , never , or living with a partner?Uvuhmur0309/01/2024 AUDIT-CAnswerDate RecordedQ1: How often do you have a drink containing alcohol? Never09/01/2024Q2: How many drinks containing alcohol do you have on a typical day when you are drinking?Patient does not drink09/01/2024Q3: How often do you have six or more drinks on one occasion?Never09/01/2024Overall Financial Resource Strain (CARDIA)AnswerDate RecordedHow hard is it for you to pay for the very basics like food, housing, medical care, and heating?Hard09/01/2024PHQ-2 AnswerDate RecordedPatient Health Questionnaire-2 Pmard978[facility] [place] of Occupational Health - Occupational Stress QuestionnaireAnswerDate RecordedDo you feel stress - tense, restless, nervous, or anxious, or unable to sleep at night because yourmind is troubled all the time - these days?Very much 09/01/2024Exercise Vital SignAnswerDate RecordedOn average, how many days per week do you engage in moderate to strenuous exercise (like a brisk walk)?1 day 09/01/2024On average, how many minutes do you engage in exercise at this level?0 min09/01/2024Hunger Vital SignAnswerDate RecordedWithin the past 12 months, you worried that your food would run out before you got the money to buymore. Sometimes true09/01/2024Within the past 12 months, the food you bought just didn't last and you didn't have money to get more.Sometimes true09/01/2024 PRAPARE - TransportationAnswerDate RecordedIn the past 12 months, has lack of transportation kept you from medical appointments or from getting medications? Yes09/01/2024In the past 12 months, has lack of transportation kept you from meetings, work, or from getting things needed for daily living?Yes09/01/2024 Housing Stability Vital SignAnswerDate RecordedIn the last 12 months, was there a time when you were not able to pay the mortgage or rent on time?No09/01/2024In the past 12 months, how many times have you moved where you were living?0 09/01/2024t any time in the past 12 months, were you homeless or living in a nursing home (including now)?No09/01/2024Sex and Gender InformationValueDate Recorded Sex Assigned at BirthNot on fileLegal NemAkhd0605/31/2022 7:02 PM EDTGender IdentityNot on fileSexual OrientationNot on file Last Filed Vital Signs Vital SignReadingTime TakenCommentsBlood Wldmnxth131/68009/09/2024 10:47 AM EDT Nseww713009/09/2024 10:47 AM EKLFzccpuxbpde52.7 ??C (98.1 ??F)09/09/2024 10:47 AM EDTRespiratory Rate--Oxygen Zhvzzjrjod76%09/09/2024 10:47 AM EDTInhaled Oxygen Concentration--Pqwtha48.6 kg (160 lb)09/09/2024 10:47 AM GRGZrsrxn964.8 cm (5' 10 )09/09/2024 10:47 AM EDTBody Mass Index22.9609/09/2024 10:47 AM EDT Plan of Treatment DateTypeDepartmentCare Team (Latest Contact Info)Smjpzjweldl56/09/2025 11:00 AM ESTOffice Visit [facility] [address] [place] [address] Lowell Burns PA [address] [place] [address] 02/25/2025 1:40 PM ESTOffice Visit [facility] [address] [place] [address] Eber Pompa DO [address] [place] [address] Health MaintenanceDue DateLast DoneCommentsCT Tbettwkjvwyc29/28/1951olonoscopy 1950olorectal Cancer Myulayzzd93/28/1951FIT-DNA1950FIT1950 FOBT1950 7067Ixpujymmuasnu18/28/1951OVID-19 Vaccine (2024- season) 2024Influenza Vaccine (#1)2024Medicare Annual Wellness (AWV) 6009/09/2024, 09/09/2024, 06/08/2023, Additional history exists Pneumococcal Vaccine: 65+ LzrbmFfaemzjla42/22/2024 Insurance Care Teams Team MemberRelationshipSpecialtyStart DateEnd Date Eber Pompa, [address] [place] [address] PCP - Generalmily Medicine07/25/22 Eber Pompa, [address] [place] [address] PCP - Pycknl92/1/23 Estiven Can DO [address] [id number] Referring PhysicianPulmonary Disease06/08/23
--- OUTSIDE RECORDS SUMMARY | 2025-02-18 13:06 | XMS_ITS | Encounter Summary ---
Author Organization [facility] Address [address] [place] [address] Care Team Providers Care Solo Truck Driver Name Role Phone Eber Pompa DO Primary Care Provider [phone] Estiven Can DO Unavailable [phone] Eber Pompa DO Unavailable [phone] Encounter Details DateTypeDepartmentCare Team (Latest Contact Info)Xmgtayprmzf55/21/2025Orders Only [facility] [address] [facility] [address] [place] [address] Lowell Burns PA [address] [facility] [address] [place] [address] COPD (chronic obstructive pulmonary disease) with chronic bronchitis (HCC) Social History Tobacco UseTypesPacks/DayYears UsedDateSmoking Tobacco: LslpyaStsjfqoqbr694Emid: 2022Smokeless Tobacco: FormerAlcohol UseStandard Drinks/WeekCommentsNever0 (1 standard [...] or relatives?Never 09/01/2024How often do you attend taoism or yarsanism services?Never09/01/2024Do you belong to any clubs or organizations such as taoism groups, unions, fraR-Health or athletic groups, or school groups?Patient atjkjuht80/16/2025How often do you attend meetings of the clubs or organizations you belong to?Patient qyionzny65/16/2025re you , , , , never , or living with a partner?Frmzjts4009/01/2024UDIT-CAnswerDate RecordedQ1: How often do you have a [...] medical care, and heating?Hard09/01/2024PHQ-2AnswerDate RecordedPatient Health Questionnaire-2 Hikzw380Fin[facility] hospital [place] of Occupational Health - Occupational Stress QuestionnaireAnswerDate [...] were you homeless or living in a custodial (including now)?No09/01/2024Sex and Gender InformationValueDate RecordedSex Assigned at BirthNot on fileLegal AjuQkuk9605/31/2022 7:02 PM EDTGender IdentityNot on fileSexual OrientationNot on filedocumented as of this encounter Progress Notes * FOREST Saenz - 02/06/2025 12:10 PM EST Rx sent. documented in this encounter Plan of Treatment DateTypeDepartmentCare Team (Latest Contact Info)Pmgtzklomvj16/09/2025 11:00 AM ESTOffice [facility] [address] [place] [address] Lowell Burns PA [address] [place] [address] 02/25/2025 1:40 PM ESTOffice Visit [facility] [address] [place] [address] Eber Pompa DO [address] [place] [address] documented as of this encounter Visit Diagnoses Diagnosis COPD (chronic obstructive pulmonary disease) with chronic bronchitis (HCC) documented in this encounter Additional Health Concerns AssessmentNoted TimePHQ-9 Depression Total Score: 16009/09/2024 10:00 AM EDT documented as of this encounter Care Teams Team MemberRelationshipSpecialtyStart DateEnd Date Eber Pompa DO [address] [place] [address] PCP - GeneralFamily Medicine07/25/22 Eber Pompa DO [address] [place] [address] PCP - Mpoepf97/1/23 Estiven Can DO [address] [place] [address] Referring PhysicianPulmonary Disease06/08/23documented as of this encounter
--- OUTSIDE RECORDS SUMMARY | 2025-02-18 13:06 | XMS_ITS | Encounter Summary ---
Author Organization [facility] Address [address] [place] [address] Care Team Providers Care Licensed Land Surveyor Name Role Phone Eber Pompa DO Primary Care Provider Estiven Can DO Unavailable [phone] Eber Pompa DO Unavailable [phone] Encounter Details DateTypeDepartmentCare Team (Latest Contact Info)Krrhoxkhdjy10/21/2025Orders Only [facility] [address] [facility] [address] [place] [address] Lowell Burns PA [address] [facility] [address] [place], [place] [phone] COPD (chronic obstructive pulmonary disease) with chronic bronchitis (HCC) (Primary Dx) Social History Tobacco UseTypesPacks/DayYears UsedDateSmoking Tobacco: ScxjxlDjhcxqmjyc770Sjrd: 2022Smokeless Tobacco: FormerAlcohol UseStandard Drinks/WeekCommentsNever0 (1 standard [...] or relatives?Never 09/01/2024How often do you attend samaritan or jewish services?Never09/01/2024Do you belong to any clubs or organizations such as samaritan groups, unions, fraInkerwang or athletic groups, or school groups?Patient jregnopq64/16/2025How often do you attend meetings of the clubs or organizations you belong to?Patient cqzempvr02/16/2025re you , , , , never , or living with a partner?Trusdmp2909/01/2024UDIT-CAnswerDate RecordedQ1: How often do you have a [...] medical care, and heating?Hard09/01/2024PHQ-2AnswerDate RecordedPatient Health Questionnaire-2 Sgfwj266Finogden [facility] [place] of Occupational Health - Occupational Stress QuestionnaireAnswerDate [...] were you homeless or living in a correction (including now)?No09/01/2024Sex and Gender InformationValueDate RecordedSex Assigned at BirthNot on fileLegal CheNwta4905/31/2022 7:02 PM EDTGender IdentityNot on fileSexual OrientationNot on filedocumented as of this encounter Progress Notes * FOREST Saenz - 02/06/2025 3:29 PM EST Rx sent. documented in this encounter Plan of Treatment DateTypeDepartmentCare Team (Latest Contact Info)Vkgxehgfwfu57/09/2025 11:00 AM ESTOffice Visit [facility] [address] [place] [address] Lowell Burns PA [address] [place] [address] 02/25/2025 1:40 PM ESTOffice Visit [facility] [address] [place] [address] Eber Pompa DO [address] [place] [address] documented as of this encounter Visit Diagnoses Diagnosis COPD (chronic obstructive pulmonary disease) with chronic bronchitis (HCC)- Primary documented in this encounter Additional Health Concerns AssessmentNoted TimePHQ-9 Depression Total Score: 16009/09/2024 10:00 AM EDT documented as of this encounter Care Teams Team MemberRelationshipSpecialtyStart DateEnd Date Eber Pompa DO [address] [place] [address] PCP - GeneralFamily Medicine07/25/22 Eber Pompa DO [address] [place] [address] PCP - Repvrf22/1/23 Estiven Can DO [address] [place] [address] Referring PhysicianPulmonary Disease06/08/23documented as of this encounter
[2025-02-18] MEDS: METHYLPREDNISOLONE SOD SUCC PF 125 MG/2 ML VIAL IVP (13:17)
[2025-02-18 13:23] LABS: Hematocrit 39.1 % (42.0-54.0); Hemoglobin 13.0 g/dL (14.0-18.0); Mean Corpuscular HGB Conc 33.2 g/dL (29.9-35.2); Mean Corpuscular Hemoglobin 28.0 pg (25.9-34.0); Mean Corpuscular Volume 84.1 fL (80.0-94.0); Platelet Count 340 10^3/uL (150-450); Red Blood Count 4.65 10^6/uL (4.70-6.10)
[2025-02-18] MEDS: ALBUTEROL SULFATE 2.5 MG/3 ML VIAL NEB IH (13:26)
[2025-02-18 13:35] LABS: SARS-CoV-2 Ag NEGATIVE (NEGATIVE)
[2025-02-18 13:40] LABS: White Blood Count 33.7 10^3/uL (4.0-11.0)
[2025-02-18 13:43] LABS: Anion Gap 7.2; Calcium 9.0 mg/dL (8.5-10.1); Carbon Dioxide 33.9 mmol/L (21.0-32.0); Chloride 96 mmol/L (98-107); Estimated GFR (African America 38 (>=60 mL/min/1.73m^2); Estimated GFR (Non-African Ame 31 (>=60 mL/min/1.73m^2); Glucose 115 mg/dL (74-106); Potassium 4.1 mmol/L (3.5-5.1); Sodium 133 mmol/L (136-145)
[2025-02-18 13:45] LABS: Segmented Neut Absolute Manual 32.35 10^3/uL (1.4-6.5); Segmented Neutrophils % Manual 96.0 (43.0-75.0)
[2025-02-18 13:46] LABS: Band Neutrophils Absolute 0.7 10^3/uL (0.0-0.3); Basophils Abs Manual 0.00 10^3/uL (0.00-0.10); Basophils Percent Manual 0.0 % (0.2-2.0); Eosinophils Absolute Manual 0.00 10^3/uL (0.00-0.70); Eosinophils Percent Manual 0.0 % (0.9-7.0); Lymphocytes Absolute Manual 0.67 10^3/uL (1.20-3.80); Lymphocytes Percent Manual 2.0 % (20.5-60.0); Monocytes Absolute Manual 0.00 10^3/uL (0.30-0.80); Monocytes Percent Manual 0.0 % (1.7-12.0)
[2025-02-18 13:50] LABS: Blood Urea Nitrogen 88.0 mg/dL (7.0-18.0)
[2025-02-18 14:07] LABS: Lactate/Lactic Acid 1.5 mmol/L (0.4-2.0)
[2025-02-18] MEDS: AZITHROMYCIN 500 MG in 0.9 % SODIUM CHLORIDE 250 ML 250 MG IV (14:12)
--- NOTE | 2025-02-18 14:29 | SWNOTE1 ---
SW received a call from the ED in regards to pt. Pt's daughter would like to speak with SW about power of workers compensation defense attorney. Pt may be admitted and daughter would like to talk about placement as well.
--- NOTE | 2025-02-18 14:55 | SWNOTE1 ---
KIMMY met with pt and his daughter in room. Pt's daughter asked SW about medical power of traffic law attorney. KIMMY advised that SW can complete Healthcare Power of Woods Superintendent with pt as long as he is alert and oriented. She voiced understanding. Pt will be admitted to the floor soon. SW asked pt and daughter if HCPOA can be completed tomorrow since pt is not feeling well. Pt and daughter in agreement. Daughter works until 2:30pm tomorrow and will be in after. Pt lives at home with his . Per the daughter pt wears home oxygen at 1 liter continuous from [facility]. SW to confirm. Daughter voiced that pt has not been feeling well for the past few days. Prior to this he was ambulating without a device. At this time pt's daughter was going to head home. KIMMY then spoke with daughter outside of the room. Daughter let SW know that pt has not showered in 2 months due to the shower being upstairs, he has just been washing up. Daughter voiced she has been talking to them about going to an assisted living facility. Pt has been to the [facility] in the past, but pt's does not want him to go there. KIMMY spoke with daughter about Medicaid. Daughter stated pt gets a pension and disability and last time they applied for Medicaid, they did not qualify. They do not own home, just rent. Daughter stated they were only over the Medicaid amount by a few hundred. This application was done about 3-4 years ago. SW recommended applying again because the amount may change. Daughter in agreement and SW will provide Medicaid juan f. IKMMY explained to the daughter that once pt is admitted we will access him for discharge planning and see if he needs any services/resources at discharge. Daughter in agreement. SW to stop and complete health care POA tomorrow with pt as long as he is alert and oriented, and will provide Medicaid juan f.
--- NOTE | 2025-02-18 15:14 | SWNOTE1 ---
KIMMY did call [facility] and spoke to Zakiya. She confirmed pt did get his oxygen back in 2022 and he has 1 liters continuous.
--- NOTE | 2025-02-18 16:19 | SWNOTE1 ---
KIMMY and DELVIS attempted to look for lab [facility], but there was no recent lab work in [place]. KIMMY called Dr. Can office to see if they had any lab work completed recently, but they stated he was new to the office and no lab work completed. DELVIS left a message for [facility] as there is an encounter in [facility], but no records. No answer at [facility] Medical records office.
--- NOTE | 2025-02-18 17:16 | PC.NURSE ---
this RN spoke with pt's daughter, Paige, and does admit to pt having issues with bed bugs at home. none assessed while in ED.
[2025-02-18] MEDS: ENOXAPARIN SODIUM 40 MG/0.4 ML SYRINGE SUBQ (18:29)
[2025-02-18] MEDS: IPRATROPIUM/ALBUTEROL SULFATE 3 ML AMPUL.NEB IH (20:44)
[2025-02-18] MEDS: DEXAMETHASONE SOD PHOS 4 MG/ML VIAL IV (21:36)
[2025-02-19] VITALS (36 sets, daily range): BP systolic 101–126; BP diastolic 66–82; PULSE 73–120; TEMP 36.4–36.8; O2SAT 92–95
[2025-02-19 05:40] LABS: A. calcoaceticus-baumannii Cpx NOT DETECTED (NOT DETECTE); Bacteroides fragilis NOT DETECTED (NOT DETECTE); Candida auris NOT DETECTED (NOT DETECTE); Candida glabrata NOT DETECTED (NOT DETECTE); Enterobacterales NOT DETECTED (NOT DETECTE); Enterococcus faecalis NOT DETECTED (NOT DETECTE); Enterococcus faecium NOT DETECTED (NOT DETECTE); Klebsiella aerogenes NOT DETECTED (NOT DETECTE); Klebsiella pneumoniae group NOT DETECTED (NOT DETECTE); Proteus spp. NOT DETECTED (NOT DETECTE); Salmonella spp. NOT DETECTED (NOT DETECTE); Serratia marcescens NOT DETECTED (NOT DETECTE); Source BLOOD; Staphylococcus epidermidis NOT DETECTED (NOT DETECTE); Staphylococcus lugdunensis NOT DETECTED (NOT DETECTE); Staphylococcus spp. NOT DETECTED (NOT DETECTE); Stenotrophomonas maltophilia NOT DETECTED (NOT DETECTE); Streptococcus pyogenes NOT DETECTED (NOT DETECTE)
[2025-02-19 06:14] LABS: Hematocrit 32.6 % (42.0-54.0); Hemoglobin 10.7 g/dL (14.0-18.0); Immature Granulocytes Abs Auto 0.87 10^3/uL (0.00-0.03); Immature Granulocytes Pct Auto 3.5 % (0.0-0.5); Lymphocytes Absolute Auto 0.4 10^3/uL (1.2-3.8); Mean Corpuscular HGB Conc 32.8 g/dL (29.9-35.2); Mean Corpuscular Hemoglobin 28.2 pg (25.9-34.0); Mean Corpuscular Volume 85.8 fL (80.0-94.0); Platelet Count 315 10^3/uL (150-450); Red Blood Count 3.80 10^6/uL (4.70-6.10); White Blood Count 25.0 10^3/uL (4.0-11.0)
[2025-02-19 06:35] LABS: Alanine Aminotransferase 47 U/L (16-63); Albumin Globulin Ratio 0.3; Albumin Level 1.4 g/dL (3.4-5.0); Alkaline Phosphatase 99 U/L (46-116); Anion Gap 7.2; Aspartate Amino Transferase 22 U/L (15-37); Blood Urea Nitrogen 60.0 mg/dL (7.0-18.0); Calcium 8.7 mg/dL (8.5-10.1); Carbon Dioxide 31.5 mmol/L (21.0-32.0); Chloride 104 mmol/L (98-107); Estimated GFR (African America >60 (>=60 mL/min/1.73m^2); Estimated GFR (Non-African Ame 54 (>=60 mL/min/1.73m^2); Globulin 4.1 g/dL; Glucose 131 mg/dL (74-106); Magnesium 2.2 mg/dL (1.8-2.4); Potassium 4.7 mmol/L (3.5-5.1); Sodium 138 mmol/L (136-145); Total Protein 5.5 g/dL (6.4-8.2)
[2025-02-19 06:51] LABS: Streptococcus spp. DETECTED (NOT DETECTE)
[2025-02-19 07:05] LABS: Glucose Urine UA NEGATIVE (NEGATIVE)
[2025-02-19 07:15] LABS: Cast Seen? NONE SEEN #/LPF (NONE SEEN); Crystals Seen? None Seen #/HPF (None Seen); Urine Culture Indicated NO
--- NOTE | 2025-02-19 08:00 | ECG_ITS ---
[facility] Test Date: 2025-02-19 Pat Name: CALLI LOUIE Department: Room: 2291 Gender: Male Private Duty Nurse: : 1950 Requested By: [id number] Order Number: [id number] Reading MD: FARIDA MEDELLIN Measurements Intervals [place] Rate: 72 P: 83 RI: 171 QRS: 30 QRSD: 101 T: 80 QT: 378 QTc: 416 Interpretive Statements SINUS RHYTHM MODERATE ST DEPRESSION [0.05+ mV ST DEPRESSION] Compared to ECG 02/18/2025 12:32:33 ST (T wave) deviation now present Electronically Signed On 02-19-2025 11:20:43 EST by FARIDA MEDELLIN
--- NOTE | 2025-02-19 08:14 | PHOTOS ---
Ramon feet/toes
[2025-02-19] MEDS: IPRATROPIUM/ALBUTEROL SULFATE 3 ML AMPUL.NEB IH ×2 (08:22→15:30)
--- NOTE | 2025-02-19 09:00 | CM.NOTE ---
Rounds made with Dr. Lemos, discussed diagnosis and plan of care with pt. Pt inpatient status, no discharge today. PT and OT will evaluate for discharge planning.
--- NOTE | 2025-02-19 09:57 | CM.NOTE ---
I called [facility] requesting the patients most recent labs. I was transferred to medical records and gave him the fax number [phone] to fax lab results to.
[2025-02-19] MEDS: DEXAMETHASONE SOD PHOS 4 MG/ML VIAL IV ×2 (10:23→22:02)
[2025-02-19] MEDS: ACETAMINOPHEN 325 MG TABLET 650 MG PO (10:24)
--- NOTE | 2025-02-19 10:40 | CM.NOTE ---
CM obtained blood work from 2022 last BMP pt had completed, labs given to Dr. Lemos.
[2025-02-19] MEDS: AZITHROMYCIN 500 MG in 0.9 % SODIUM CHLORIDE 250 ML 250 MG IV (11:01)
--- NOTE | 2025-02-19 11:11 | CT_ITS ---
The [address] [address] Patient Name: CALLI LOUIE MRN: [id number] date: 1950 Sex: M Assigned Patient Location: MS Current Patient Location: Accession/Order Number: [id number] Exam Date: 02/19/2025 11:55 Report Date: 02/19/2025 19:01 At the request of: COOPER CORTES MD Procedure: CT abdomen pelvis w con CT ABDOMEN AND PELVIS WITH INTRAVENOUS CONTRAST: CLINICAL HISTORY: Diffuse abd tenderness, wt loss r/o malignancy COMPARISON: None TECHNIQUE: Spiral images were obtained through the abdomen and pelvis following the administration of intravenous contrast. This CT exam was performed using one or more following dose reduction techniques: Automated exposure control, adjustment of the mA and/or kV according to patient size, or use of iterative reconstruction technique. FINDINGS: Lung Bases: [Left lower lobe consolidation with air bronchograms suggestive of pneumonia.] Organs:Liver, spleen, right adrenal, kidneys, and pancreas are unremarkable. Minimal nodularity left adrenal gland nonspecific.[ GI: Mild retained stool throughout the colon. No bowel obstruction. Mild distal colonic diverticulosis. There is evidence of bilateral inguinal hernias left greater than right with the left inguinal hernia containing a small loop of colon and calyces nonobstructive. Minimal background colonic diverticulosis. No pericolonic inflammatory changes.[ Pelvis:[Enlarged prostate. Bladder unremarkable.] Peritoneum/Retroperitoneum:Mild to moderate plaque involving the nonaneurysmal aorta. No pathologic adenopathy identified.[No free air or free fluid Abd wall/Bones:Multilevel degenerative changes. No suspicious osseous lesion.[ CT/CT abdomen pelvis w con IMPRESSION: Left lower lobe consolidation suggestive of pneumonia. Recommend radiographic follow-up to resolution following medical treatment course. Otherwise no evidence acute inflammatory process or bowel obstruction. Impression dictated by: Rommel Lopez M.D. 02/19/2025 7:01 PM Dictation Location: [place] [address] Electronically authenticated by: [id number] Y Date: 02/19/2025 19:01
--- NOTE | 2025-02-19 11:11 | CT_ITS ---
The [address] [address] Patient Name: CALLI LOUIE MRN: [id number] date: 1950 Sex: M Assigned Patient Location: Current Patient Location: Accession/Order Number: [id number] Exam Date: 02/19/2025 11:55 Report Date: 02/19/2025 16:25 At the request of: COOPER CORTES MD Procedure: CT angio chest CTA chest CLINICAL DATA: Hypoxemia, weight loss, rule out pulmonary embolism or malignancy.. TECHNIQUE: Intravenous contrast-enhanced CT angiography of the chest was performed. Axial, sagittal, coronal, and 3D-dimensional reconstructions were created and reviewed. These CT exams were performed using one or more of the following dose reduction techniques: Automated exposure control, adjustment of the mA and/or kV according to patient size, or use of iterative reconstruction technique. COMPARISON: CT chest 06/08/2023. FINDINGS: Chest: Mediastinum:Unremarkable cardiac size. No pathologic adenopathy. Aorta demonstrate mild plaque. Mild coronary artery calcification identified. No evidence of Central to segmental branch pulmonary artery emboli. Lungs:Dense consolidative changes involving left lower lobe suggestive of pneumonia. Air bronchograms within the left lower lobe noted. No effusion. No pneumothorax. Mild emphysematous changes within the apices.. Abd: Suspect fatty infiltration liver. See separate dictation. Soft tissues/Bones: Multilevel degenerative changes of the thoracic spine. No suspicious osseous lesion identified. CT/CT angio chest IMPRESSION: Negative for Central to segmental branch pulmonary embolism. Left lower lobe airspace consolidation suggestive of pneumonia. Recommend radiographic follow-up to document complete resolution following medical course. Impression dictated by: Rommel Lopez M.D. 02/19/2025 4:25 PM Dictation Location: [facility] Electronically authenticated by: [id number] Y Date: 02/19/2025 16:25
--- NOTE | 2025-02-19 11:16 | PM.HP ---
HPI H&P: HPI History of Present Illness Chief complaint: pneumonia ashia Narrative: Mr. Crane is a 74-year-old gentleman who came to the emergency room complaining of shortness of breath. Cough productive to yellowish sputum. No fever or chills. No chest pain or palpitation. Patient reported losing 40 pounds over the last 6 months. Progressive weakness and fatigue. No abdominal pain but diffuse abdominal discomfort. Patient quit smoking few years back after smoking for 40 years. Patient does have oxygen at home. Opioid HPI Opioid Management Most Recent Pain and Opioid Data: Last Pain Scale 0 Today, 11:07 Last Pain Assessment Today, 11:07 Last MAR Pain Assessment Today, 10:24 Last ORT Total Score 0 02/18/25, 16:29 Last ORT Risk Category Low Risk 02/18/25, 16:29 Review of Systems ROS Narrative Patient reported feeling depressed and sad. He strongly denies any visual or auditory hallucination. He denies any suicidal or homicidal ideation Status of ROS 10 or more systems reviewed and unremarkable except as noted in history and below PFSH PFSH Social History Highest level of school completed/degree received: 12th grade, no diploma Little interest or pleasure in doing things: nearly every day Feeling down, depressed, or hopeless: nearly every day Meds Home Medications and Allergies Home Medications ?Medication ?Instructions ?Recorded ?Confirmed ?Type amlodipine 5 mg tablet 5 mg PO QAM 02/18/25 02/18/25 History budesonide 0.5 mg/2 mL suspension 0.5 mg inhalation Q12H 02/18/25 02/18/25 History for nebulization escitalopram oxalate 10 mg tablet 10 mg PO DAILY 02/18/25 02/18/25 History hydroxyzine HCl 25 mg tablet 25 mg PO Q6H PRN anxiety 02/18/25 02/18/25 History ipratropium 0.5 mg-albuterol 3 mg 3 ml inhalation Q6H PRN shortness 02/18/25 02/18/25 History (2.5 mg base)/3 mL nebulization of breath or wheezing soln montelukast 10 mg tablet 10 mg PO .qhs 02/18/25 02/18/25 History Allergies Allergy/AdvReac Type Severity Reaction Status Date / Time No Known Drug Allergies Allergy Verified 02/18/25 12:37 Exam Narrative Exam Narrative: [pt is awake and alert. oriented to place, time and person, patient is very cachectic and frail in appearance HEENT: [place] conjunctiva and NL buccal mucosa, bitemporal muscle wasting. Neck: Supple, no tenderness Endocrine: No Thyromegaly. Vascular: No JVD or carotid bruit. Lymphatic: No cervical lymphadenopathy. Chest: Rhonchi and diminished breath sound on the left side. Heart RRR, no extra sound or murmur. Abd: Soft, diffuse abdominal discomfort, no rebound, no rigidity. LE: No cyanosis or clubbing, no varices or edema. Upper and lower extremities muscle wasting atrophy Neuro: A A O. Nl speech, comprehension and attention. Nl and symetrical motor and tone examination through out. []] Constitutional Vital Signs, click to edit/add: Last Vital Signs Temp 97.8 F 02/19/25 07:30 Pulse 79 02/19/25 09:58 Resp 18 02/19/25 08:25 BP 126/77 02/19/25 07:30 Pulse Ox 93 L 02/19/25 08:25 O2 Del Method Nasal Cannula 02/19/25 08:25 O2 Flow Rate 3 02/19/25 08:25 Results Labs Labs: Short CBC 02/18/25 02/19/25 Range/Units 13:00 05:32 WBC 33.7 H* 25.0 H (4.0-11.0) 10^3/uL Hgb 13.0 L 10.7 L (14.0-18.0) g/dL Hct 39.1 L 32.6 L (42.0-54.0) % Plt Count 340 315 (150-450) 10^3/uL BMP 02/18/25 02/19/25 13:00 05:32 Sodium 133 L 138 Potassium 4.1 4.7 Chloride 96 L 104 Carbon Dioxide 33.9 H 31.5 BUN 88.0 H* 60.0 H Creatinine 2.10 H 1.29 Glucose 115 H 131 H Calcium 9.0 8.7 Liver Function 02/19/25 Range/Units 05:32 Total Bilirubin 0.2 (0.2-1.0) mg/dL AST 22 (15-37) U/L ALT 47 (16-63) U/L Alkaline Phosphatase 99 (46-116) U/L Albumin 1.4 L (3.4-5.0) g/dL Urine 02/19/25 Range/Units 06:35 Urine Color Lt. yellow (YELLOW) Urine Clarity Clear (CLEAR) Urine pH 5.5 (5.0-9.0) Ur Specific [place] 1.010 (1.005-1.025) Urine Protein Negative (NEG/TRACE) mg/dL Urine Glucose (UA) Negative (NEGATIVE) mg/dL Assessment and Plan Assessment and Plan (1) Pneumonia: (2) Acute kidney injury: Plan Acute hypoxic respiratory failure, hypoxemia, using accessory muscles. Saturation down to 70%. Pneumonia. Probable left-sided pleural effusion. Probable underlying malignancy. My suspicion of pulmonary embolism is low but not 0. Acute COPD exacerbation. I have accepted to admit patient to the medical floor. I started him on albuterol, Atrovent, Solu-Medrol, ceftriaxone and Zithromax Requested CAT scan of the chest to take a better look at the left lung in terms of the parenchyma, pleural space ripping out underlying malignancy and/or lymphadenopathy. Sepsis present on admission Streptococcus bacteremia Sepsis guidelines were followed in terms of sending of blood culture, monitoring lactic acid and initiation of IV antibiotic. Continue ceftriaxone 1 g every 12. Acute kidney failure, likely secondary to sepsis, could be related to volume loss resolved with IV fluid infusion. UA does not show RBC or protein to suspect acute glomerulonephritis. CAT scan of the abdomen and pelvis to rule out obstructive uropathy. Increased risk of lung cancer Patient would likely require to have yearly low-dose radiation CAT scan of the chest to screen for lung cancer to be arranged by his PCP Cachexia, frailty, failure to thrive, severe protein calorie malnutrition, muscle wasting and atrophy, weight loss more than 40 pounds over the last 6 months His albumin is 1.4. I suspect that the patient may have underlying malignancy or may have COPD cachexia. Requested CAT scan of the chest and abdomen Started him on oral protein supplementation Malignancy workup would need to take place in addition to CAT scan imaging. This may include but not limited to needing to have EGD, colonoscopy, prostate exam as well as other age-appropriate cancer screening to be handled by PCP postdischarge from acute care. Anemia, no evidence of acute blood loss. Patient will likely require to have anemia workup to be done in the outpatient setting to be handled by PCP in collaboration with other needed outpatient providers. This may include but not limited to EGD, colonoscopy, referral to see hematology and other needed age-appropriate cancer screening. Depression. Patient reported feeling depressed and sad over the last several months at least. Patient strongly denied any suicidal or homicidal ideation. No active delusion. Provided patient emotional and psychological support. I started him on Lexapro 10 mg daily.
[2025-02-19] MEDS: ESCITALOPRAM 10 MG TABLET PO (12:07)
[2025-02-19] MEDS: 0.9 % SODIUM CHLORIDE 1,000 ML 200 ML IV (12:08)
--- NOTE | 2025-02-19 14:45 | CM.NOTE ---
CM in to see patient. Important Message from Medicare was signed by the patient. Copy on patients chart.
--- NOTE | 2025-02-19 15:26 | W.PM.WC_ITS ---
Wound Consult Note Assessment and Plan (1) Pneumonia: (2) Acute kidney injury: Plan Consult: Onychogryphosis, mycotic nails Called by Lissett SHIELDS, [employer] to see patient today due to severely thick, elongated toenails. Patient found to have elongated nails 1-10, extremely thickened, discolored, and painful. Patient gave verbal permission for me to trim his toenails today. All nails were trimmed using nail nippers to patient's satisfaction. Patient tolerated well. Several nails were curled over top of his toes and pushing into his plantar toe pads. After trimming back all nails, skin integrity intact with some indentation noted from the toenail pressure. Patient happy and appreciative of the care today. Slow, mild dremmel to toenail edges to soften sharp edges. Thank you for consult. Haris Trevino, ALYSON, CWON
--- NOTE | 2025-02-19 15:53 | SWNOTE1 ---
SW completed HCPOA with pt. Pt's daughter in room as well. Pt is alert and oriented. Pt put his daughter as HCPOA. SW to make copies and return original and copy to pt's room.
[2025-02-19] MEDS: ENOXAPARIN SODIUM 40 MG/0.4 ML SYRINGE SUBQ (16:50)
[2025-02-19] MEDS: DILTIAZEM HCL 60 MG TABLET PO (22:01)
[2025-02-19] MEDS: ENOXAPARIN SODIUM 30 MG/0.3 ML SYRINGE SUBQ (22:02)
[2025-02-19] MEDS: METOPROLOL TARTRATE 5 MG/5 ML VIAL 2.5 MG IVP (22:03)
[2025-02-20] VITALS (47 sets, daily range): BP systolic 93–115; BP diastolic 57–77; PULSE 71–126; TEMP 36.3–36.8; O2SAT 90–98
[2025-02-20] MEDS: CALCIUM CARBONATE 500 MG (200MG ELEMENTAL) TAB CHEW PO (00:42)
[2025-02-20] MEDS: DIGOXIN 500 MCG/2 ML AMPUL 250 MCG IV (01:31)
--- NOTE | 2025-02-20 05:04 | ECG_ITS ---
The [facility] Test Date: 2025-02-20 Pat Name: CALLI LOUIE Department: Room: 2291 Gender: Male Straw Boss: : 1950 Requested By: [id number] Order Number: [id number] Reading MD: VIKI PRASAD M.D. Measurements Intervals [place] Rate: 73 P: 76 WA: 154 QRS: 76 QRSD: 94 T: 76 QT: 370 QTc: 395 Interpretive Statements 1100 Sinus rhythm 9110 normal ECG Compared to ECG 02/19/2025 05:51:01 ST (T wave) deviation no longer present Electronically Signed On 02-20-2025 21:52:44 EST by VIKI PRASAD M.D.
[2025-02-20 05:39] LABS: Hematocrit 29.6 % (42.0-54.0); Hemoglobin 9.8 g/dL (14.0-18.0); Mean Corpuscular HGB Conc 33.1 g/dL (29.9-35.2); Mean Corpuscular Hemoglobin 28.7 pg (25.9-34.0); Mean Corpuscular Volume 86.8 fL (80.0-94.0); Platelet Count 395 10^3/uL (150-450); Red Blood Count 3.41 10^6/uL (4.70-6.10); White Blood Count 24.0 10^3/uL (4.0-11.0)
[2025-02-20] MEDS: DILTIAZEM HCL 60 MG TABLET PO ×3 (05:42→21:50)
[2025-02-20 06:03] LABS: Anion Gap 5.5; Blood Urea Nitrogen 67.0 mg/dL (7.0-18.0); Calcium 8.3 mg/dL (8.5-10.1); Carbon Dioxide 31.6 mmol/L (21.0-32.0); Chloride 107 mmol/L (98-107); Estimated GFR (African America >60 (>=60 mL/min/1.73m^2); Estimated GFR (Non-African Ame >60 (>=60 mL/min/1.73m^2); Glucose 140 mg/dL (74-106); Potassium 5.1 mmol/L (3.5-5.1); Sodium 139 mmol/L (136-145); Thyroid Stimulating Hormone 0.596 uIU/mL (0.358-3.740)
--- NOTE | 2025-02-20 08:00 | CM.NOTE ---
Pt up to BR at this time, Dr. Lemos will evaluate pt later this am for plan of care.
[2025-02-20] MEDS: IPRATROPIUM/ALBUTEROL SULFATE 3 ML AMPUL.NEB IH ×2 (09:14→20:55)
[2025-02-20] MEDS: DEXAMETHASONE SOD PHOS 4 MG/ML VIAL IV ×2 (09:21→20:08)
[2025-02-20] MEDS: ESCITALOPRAM 10 MG TABLET PO (09:21)
[2025-02-20] MEDS: ENOXAPARIN SODIUM 40 MG/0.4 ML SYRINGE 60 MG SUBQ (09:24)
--- NOTE | 2025-02-20 09:24 | SWNOTE1 ---
SW made copy of HCPOA and placed the original booklet and a copy in pt's room and a copy in pt's medical chart. Pt was sitting up in chair getting a breathing treatment. Pt voiced appreciation and asked for SW card in case they have any questions, SW to bring back. Pt voiced he is feeling alright, had a rough night sleeping. SW did ask pt if he felt safe at home? Pt voiced he does feel safe at home and no concerns about returning home. SW asked if he any thoughts of harming himself? Pt voiced he does not have any of those thoughts. SW did ask about the bed bugs at home and if they are looking in to having someone come in and spray? Pt voiced they are looking in to it. At this time pt has no other concerns. SW to review therapy eval once completed.
--- NOTE | 2025-02-20 09:36 | SWNOTE1 ---
KIMMY provided pt with SW card and let him know that they can call KIMMY at anytime with any questions. Pt voiced appreciation. KIMMY did ask him if his daughter lives in the home with him and his ? He stated no. She lives close by and helps them them out when needed. He stated they have good neighbors that keep an eye out and grandkids that help mow and rake leaves as well.
[2025-02-20] MEDS: AZITHROMYCIN 500 MG in 0.9 % SODIUM CHLORIDE 250 ML 250 MG IV (10:13)
--- NOTE | 2025-02-20 11:11 | P.PN_ITS ---
Progress Note: Subjective Subjective Interval history: Patient is feeling better. Less cough and congestion. Saturation 92% on 3 L. Exam Narrative Exam Narrative: [pt is awake and alert. oriented to place, time and person, patient is very cachectic and frail in appearance HEENT: [employer] conjunctiva and NL buccal mucosa, bitemporal muscle wasting. Neck: Supple, no tenderness Endocrine: No Thyromegaly. Vascular: No JVD or carotid bruit. Lymphatic: No cervical lymphadenopathy. Chest: Rhonchi and diminished breath sound on the left side. Heart RRR, no extra sound or murmur. Abd: Soft, diffuse abdominal discomfort, no rebound, no rigidity. LE: No cyanosis or clubbing, no varices or edema. Upper and lower extremities muscle wasting atrophy Neuro: A A O. Nl speech, comprehension and attention. Nl and symetrical motor and tone examination through out. Constitutional Vital Signs, click to edit/add: Last Vital Signs Temp 98.1 F 02/20/25 08:00 Pulse 82 02/20/25 09:58 Resp 200 H 02/20/25 09:18 BP 108/68 02/20/25 08:00 Pulse Ox 92 L 02/20/25 09:18 O2 Del Method Nasal Cannula 02/20/25 09:18 O2 Flow Rate 3 02/20/25 09:18 Progress Note: Objective Labs Labs: Short CBC 02/20/25 Range/Units 05:17 WBC 24.0 H (4.0-11.0) 10^3/uL Hgb 9.8 L (14.0-18.0) g/dL Hct 29.6 L (42.0-54.0) % Plt Count 395 (150-450) 10^3/uL BMP 02/20/25 05:17 Sodium 139 Potassium 5.1 Chloride 107 Carbon Dioxide 31.6 BUN 67.0 H Creatinine 1.10 Glucose 140 H Calcium 8.3 L Progress Note: A&P Assessment and Plan (1) Pneumonia: (2) Acute kidney injury: Plan Acute hypoxic respiratory failure, hypoxemia, using accessory muscles. Saturation down to 70%. Pneumonia. Probable left-sided pleural effusion. Probable underlying malignancy. My suspicion of empyema is low but not 0 My suspicion of pulmonary embolism is low but not 0. Acute COPD exacerbation. I have accepted to admit patient to the medical floor. I started him on albuterol, Atrovent, Solu-Medrol, ceftriaxone and Zithromax. CAT scan of the chest does not show any pulmonary embolism. No effusion to suspect empyema. No pneumothorax but positive for air bronchogram Continue antibiotic Sepsis present on admission Streptococcus bacteremia Sepsis guidelines were followed in terms of sending of blood culture, monitoring lactic acid and initiation of IV antibiotic. Continue ceftriaxone 1 g every 12. Repeat blood culture. Acute kidney failure, likely secondary to sepsis, could be related to volume loss resolved with IV fluid infusion. Resolved UA does not show RBC or protein to suspect acute glomerulonephritis. CAT scan of the abdomen and pelvis does not show obstructive uropathy Increased risk of lung cancer Patient would likely require to have yearly low-dose radiation CAT scan of the chest to screen for lung cancer to be arranged by his PCP Cachexia, frailty, failure to thrive, severe protein calorie malnutrition, muscle wasting and atrophy, weight loss more than 40 pounds over the last 6 months His albumin is 1.4. I suspect that the patient may have underlying malignancy or may have COPD cachexia. Requested CAT scan of the chest and abdomen Started him on oral protein supplementation Malignancy workup would need to take place in addition to CAT scan imaging. This may include but not limited to needing to have EGD, colonoscopy, prostate exam as well as other age-appropriate cancer screening to be handled by PCP postdischarge from acute care. Anemia, no evidence of acute blood loss. Patient will likely require to have anemia workup to be done in the outpatient setting to be handled by PCP in collaboration with other needed outpatient providers. This may include but not limited to EGD, colonoscopy, referral to see hematology and other needed age-appropriate cancer screening. Depression. Patient reported feeling depressed and sad over the last several months at least. Patient strongly denied any suicidal or homicidal ideation. No active delusion. Provided patient emotional and psychological support. I started him on Lexapro 10 mg daily. Patient is upbeat today. Hopeful and optimistic. No active delusion. DVT prophylaxis Lovenox subcu Urinary Catheter Management Urinary Catheter Management Pure Wick: Cath placed during this visit: no
--- NOTE | 2025-02-20 11:55 | SWNOTE1 ---
At this time Physical therapy is recommending SNF due to pt's shortness of breath and not being able ambulate long distances. SW stopped in and spoke with pt. SW let him know the recommendations of pt going to rehab for a short time to get stronger. Pt voiced he does not want to do that. He stated he feels more comfortable in his home. SW did ask him about home health services and letting therapy and nurse come in to his home? Pt is agreeable to this. SW did explain the difference of SNF vs HH. Pt does want to go home, he does not want SNF. Pt is not sure what home health company he wants and he would like SW to call the daughter. SW to call daughter.
--- NOTE | 2025-02-20 12:05 | SWNOTE1 ---
SW called Paige, pt's daughter, and left her a message about recommendations of SNF and that pt refused to go to SNF, but agreeable to HH.
--- NOTE | 2025-02-20 14:50 | SWNOTE1 ---
KIMMY spoke with daughter Paige on the phone. SW let her know the [facility] stay. SW advised daughter that pt does not want to go and he feels more comfortable at home. Daughter is in agreement and she is alright with pt returning home. SW let her know that pt has agreed to home health services. Essence stated that would be fine and he used to have the company that drives the [employer] cars. KIMMY advised that is [facility]. Paige would like to use them again. KIMMY did explain the difference between SNF and HH, daughter is aware and is in agreement with just doing home health. Paige did ask about a walker at home. KIMMY advised that the physician will need to write a script and document. SW to make a note for Sunday to attempt to get pt walker. Pt does have oxygen and hospital bed at home at this time. Referral sent to [facility]. Referral included face sheet, ED note, H&P, provider notes, case management report, wound consult, nursing notes, diagnostic imaging, med list, and PTnotes.
--- NOTE | 2025-02-20 15:07 | SWNOTE1 ---
SW received email from Giuliana at [facility] and they are able to accept. SW updated pt's nurse.
--- NOTE | 2025-02-20 17:46 | PC.NURSE ---
Dr. Lemos notified of patient having loose watery stools that are black and tarry.. orders received
[2025-02-20 18:51] LABS: Hemoglobin 7.6 g/dL (14.0-18.0); Immature Granulocytes Abs Auto 1.56 10^3/uL (0.00-0.03); Immature Granulocytes Pct Auto 6.3 % (0.0-0.5); Lymphocytes Absolute Auto 0.5 10^3/uL (1.2-3.8); Mean Corpuscular HGB Conc 33.0 g/dL (29.9-35.2); Mean Corpuscular Hemoglobin 28.8 pg (25.9-34.0); Mean Corpuscular Volume 87.1 fL (80.0-94.0); Platelet Count 388 10^3/uL (150-450); Red Blood Count 2.64 10^6/uL (4.70-6.10); White Blood Count 24.8 10^3/uL (4.0-11.0)
[2025-02-20 18:57] LABS: Hematocrit 23.0 % (42.0-54.0)
--- NOTE | 2025-02-20 19:05 | PC.NURSE ---
Dr. Lemos notified of critical low hematocrit and drop in hemoglobin. orders received
[2025-02-20] MEDS: 0.9 % SODIUM CHLORIDE 500 ML 250 ML IV (20:08)
--- NOTE | 2025-02-20 21:06 | CA_ITS ---
Patient Name: CALLI LOUIE MR#: [id number] : 1950 Exam Date: 02/20/2025 Ordering Doctor: COOPER CORTES ECHOCARDIOGRAM REPORT PROCEDURE: CA ECHO DOPPLER COMPLETE INDICATIONS: New A fib COMPARISON: None. DESCRIPTION: COMPLETE ECHOCARDIOGRAM Real-time transthoracic echocardiography with 2D, M-mode, spectral and color flow Doppler performed. QUALITY: Technical quality was limited because of lung artifact. LEFT VENTRICLE: Normal chamber size. Normal left ventricular wall thickness. Global left ventricular systolic function is normal. Visual estimation of left ventricular ejection fraction is 55-60%. LV EF: Normal left ventricular ejection fraction, (>55%). DIASTOLIC: Diastolic function is indeterminate. ATRIAL SEPTUM: LEFT ATRIUM: Normal chamber size. RIGHT ATRIUM: Normal chamber size. RIGHT VENTRICLE: Normal chamber size. Normal right ventricular systolic function. TRICUSPID VALVE: Normal mobility and thickness. No stenosis with trivial regurgitation. Moderate pulmonary hypertension. The RVSP measures 45 mmHg. MITRAL VALVE: Normal mobility and thickness. No evidence of mitral valve stenosis. There is no mitral annular calcification. No mitral regurgitation. AORTIC VALVE: Normal trileaflet appearance. No visible sclerosis. Normal leaflet mobility. No evidence of aortic valve stenosis. No aortic regurgitation. AORTIC ROOT: Normal diameter and appearance. The aortic root measures 3.1 cm. PULMONIC VALVE: Grossly normal. No stenosis. No regurgitation. PERICARDIUM: Small anterior pericardial effusion. No evidence of tamponade physiology. IVC: Collapses with inspirations. The IVC is normal in size measuring 1.4 cm. PLEURA: CONCLUSION: 1. Normal left ventricular size and systolic function. Estimated LVEF is 55 to 60%. 2. Normal right ventricular size and systolic function. 3. No significant valvular dysfunction. 4. Moderately elevated right-sided pressures. RVSP is 45 mmHg. 5. Small anterior pericardial effusion. No evidence of tamponade physiology. Adult Echocardiography Procedure Report Left Ventricle LVEDD (3.7 - 5.6 cm): 4.47 cm LVESD (2.2 - 4.0 cm): 2.71 cm LVIVS thickness (0.6 - 1.2 cm): 0.67 cm LVPW thickness (0.5 - 1.0 cm): 0.83 cm e': 0.08 m/s E - e': 5.24 LVOT Max Gradient: 2.85 mm[Hg] LVOT Area (cm2): 0.84 m/s Peak Velocity (LVOT): 0.84 m/s Mean Velocity (LVOT): 0.62 m/s LVOT Diameter 2.10 cm Left Atrium Left Atrium Systolic Dimension: 2.65 cm Mitral Valve MV E to A Ratio: 0.72 Mitral Valve A-Wave Peak Velocity: 0.58 m/s Mitral Valve E-Wave Peak Velocity: 0.42 m/s Right Ventricle RV Internal Diastolic Dimension: 3.22 cm Aorta AO Root Diam: 3.09 cm Aortic Valve AoV Area (Peak Chauncey): 2.90 cm2, 2.90 cm2 AoV Area (VTI): 3.25 cm2, 3.25 cm2 Peak Velocity(Antegrade Flow): 1.01 m/s Peak Gradient(Antegrade Flow): 4.11 mm[Hg] Mean Velocity(Antegrade Flow): 0.62 m/s Mean Gradient(Antegrade Flow): 1.81 mm[Hg] Velocity Time Integral: 12.90 cm Tricuspid Valve Peak Velocity (Regurgitant Flow): 1.90 m/s, 2.58 m/s, 3.25 m/s Pulmonic Valve Mean Gradient: 1.66 mm[Hg] Mean Velocity: 0.59 m/s Peak Velocity: 0.96 m/s, 1.09 m/s Peak Gradient: 4.79 mm[Hg], 3.72 mm[Hg] Right Atrium Right Atrium Systolic Pressure: 54.08 ml, 54.08 ml Dictated by: Jules Acuña M.D. on 02/20/2025 at 18:31 Approved by: Jules Acuña M.D. on 02/20/2025 at 18:34
[2025-02-20] MEDS: ALPRAZOLAM 0.5 MG TABLET PO (21:18)
[2025-02-20] MEDS: PANTOPRAZOLE SODIUM 40 MG VIAL IV (23:41)
[2025-02-21] VITALS (14 sets, daily range): BP systolic 100–117; BP diastolic 66–71; PULSE 68–88; TEMP 36.5–36.7; O2SAT 90–98
[2025-02-21] MEDS: DILTIAZEM HCL 60 MG TABLET PO (06:03)
[2025-02-21] MEDS: ESCITALOPRAM 10 MG TABLET PO (08:11)
[2025-02-21] MEDS: DEXAMETHASONE SOD PHOS 4 MG/ML VIAL IV (08:12)
[2025-02-21 08:36] LABS: Hematocrit 32.0 % (42.0-54.0); Hemoglobin 10.8 g/dL (14.0-18.0); Mean Corpuscular HGB Conc 33.8 g/dL (29.9-35.2); Mean Corpuscular Hemoglobin 28.7 pg (25.9-34.0); Mean Corpuscular Volume 85.1 fL (80.0-94.0); Platelet Count 366 10^3/uL (150-450); Red Blood Count 3.76 10^6/uL (4.70-6.10); White Blood Count 21.3 10^3/uL (4.0-11.0)
--- NOTE | 2025-02-21 09:09 | P.DS_ITS ---
DS: Providers Provider Date of admission: 02/18/25 16:08 Primary care physician: FARIDA LIM Consults: 02/19/25 Consult to Wound Care Routine Consulting Provider: Haris Trevino Reason for consultation: toenail care Physical Therapy Eval and Treat Routine Reason for consultation: weakness DS: Diagnosis Discharge Diagnosis (1) Pneumonia: (2) Acute kidney injury: Plan As listed above, below and other than that are not listed DS: Summary Hospital Course Hospital Course: Mr. Crane is a 74-year-old gentleman who came in with cough, wheezing and congestion. He was found to have the following: Acute hypoxic respiratory failure, hypoxemia, using accessory muscles. Saturation down to 70%. This has improved. Currently on 3 L, saturation 93%. Pneumonia. Probable left-sided pleural effusion. Probable underlying malignancy. My suspicion of empyema is low but not 0 My suspicion of pulmonary embolism is low but not 0. Acute COPD exacerbation. I have accepted to admit patient to the medical floor. I started him on albuterol, Atrovent, Solu-Medrol, ceftriaxone and Zithromax. CAT scan of the chest does not show any pulmonary embolism. No effusion to suspect empyema. No pneumothorax but positive for air bronchogram Continue antibiotic I would recommend repeat imaging in 2 months to ensure complete resolution otherwise patient may need to undergo evaluation for underlying malignancy. I would recommend patient to follow-up with pulmonary team to address his pulmonary needs. Sepsis present on admission Streptococcus bacteremia White count is drifting down. CRP is elevated. Trend CRP. Sepsis guidelines were followed in terms of sending of blood culture, monitoring lactic acid and initiation of IV antibiotic. Continue ceftriaxone 1 g every 12. Repeat blood culture. Acute kidney failure, likely secondary to sepsis, could be related to volume loss resolved with IV fluid infusion. Resolved UA does not show RBC or protein to suspect acute glomerulonephritis. CAT scan of the abdomen and pelvis does not show obstructive uropathy A-fib. 1 episode lasted for several hours. Patient converted to sinus rhythm Echocardiogram does not show cardiomyopathy. I placed patient on calcium emmy for rate control. I initially started him on Lovenox 1 mg/kg twice a day for embolic stroke prevention however I stopped it after patient developed black stool and a drop in his hemoglobin. Patient will be transferring to [facility] for GI investigation and resumption of anticoagulation when safe. GI bleed. Acute blood loss anemia requiring 2 units of RBC transfusion. Patient developed yesterday black stool after the initiation of Lovenox. His hemoglobin dropped from 13 on admission down to 7.6 Patient had received 2 units of RBC transfusion. Repeat hemoglobin is 10.8. Patient continues to have a black stool and Hemoccult positive He is on PPI. Patient will need to be on anticoagulation for paroxysmal A-fib therefore he would require GI investigation. I will transfer to [facility] to completed. Increased risk of lung cancer Patient would likely require to have yearly low-dose radiation CAT scan of the chest to screen for lung cancer to be arranged by his PCP Cachexia, frailty, failure to thrive, severe protein calorie malnutrition, muscle wasting and atrophy, weight loss more than 40 pounds over the last 6 months His albumin is 1.4. I suspect that the patient may have underlying malignancy or may have COPD cachexia. Requested CAT scan of the chest and abdomen Started him on oral protein supplementation Malignancy workup would need to take place in addition to CAT scan imaging. This may include but not limited to needing to have EGD, colonoscopy, prostate exam as well as other age-appropriate cancer screening to be handled by PCP postdischarge from acute care. Depression. Patient reported feeling depressed and sad over the last several months at least. Patient strongly denied any suicidal or homicidal ideation. No active delusion. Provided patient emotional and psychological support. I started him on Lexapro 10 mg daily. Patient is upbeat today. Hopeful and optimistic. No active delusion. I would recommend patient to be seen by psychiatrist at [facility] for his depression. DVT prophylaxis Lovenox subcu Patient has multiple complex medical issues as listed above and others that are not listed. All appear to be stable. I do not have any clear or strong clinical justification to extend inpatient hospitalization. Patient however will require close and frequent monitoring as well as additional work-up, investigation and therapeutic intervention that could take place from this point on post discharge. That is to prevent relapse, decompensation, rehospitalization and other medical implications. I instructed patient to ask her primary care doctor to obtain [facility] record entirely to address abnormalities seen on labs and imaging that I have and have not addressed during this hospitalization, follow-up on pending blood work, imaging and pathology is if available and to follow-up on needed medical care in the outpatient setting. Time Spent with Patient Time attestation: Total time spent providing and/or coordinating discharge services: Exam Narrative Exam Narrative: [pt is awake and alert. oriented to place, time and person, patient is very cachectic and frail in appearance HEENT: [place] conjunctiva and NL buccal mucosa, bitemporal muscle wasting. Neck: Supple, no tenderness Endocrine: No Thyromegaly. Vascular: No JVD or carotid bruit. Lymphatic: No cervical lymphadenopathy. Chest: Rhonchi and diminished breath sound on the left side. Heart RRR, no extra sound or murmur. Abd: Soft, diffuse abdominal discomfort, no rebound, no rigidity. LE: No cyanosis or clubbing, no varices or edema. Upper and lower extremities muscle wasting atrophy Neuro: A A O. Nl speech, comprehension and attention. Nl and symetrical motor and tone examination through out. Constitutional Vital Signs, click to edit/add: Last Vital Signs Temp 97.8 F 02/21/25 08:00 Pulse 68 02/21/25 08:08 Resp 18 02/21/25 08:00 BP 115/71 02/21/25 08:00 Pulse Ox 93 L 02/21/25 08:00 O2 Del Method Nasal Cannula 02/21/25 02:25 O2 Flow Rate 3 02/21/25 02:25 DS: Data Data Completed and Pending Labs on day of discharge: Labs from last 24 hours 02/21/25 02/20/25 02/20/25 08:30 21:36 18:47 WBC 21.3 H 24.8 H RBC 3.76 L 2.64 L Hgb 10.8 L 7.6 L Hct 32.0 L 23.0 L* MCV 85.1 87.1 MCH 28.7 28.8 MCHC 33.8 33.0 RDW 14.8 14.9 Plt Count 366 388 MPV 10.1 10.2 Neut % (Auto) 88.2 H Lymph % (Auto) 2.1 L Grainger % (Auto) 3.2 Eos % (Auto) 0.0 L Baso % (Auto) 0.2 Neut # (Auto) 21.9 H Lymph # (Auto) 0.5 L Grainger # (Auto) 0.8 Eos # (Auto) 0.0 Baso # (Auto) 0.0 Abs Immat Gran (auto) 1.56 H Imm/Tot Granulo (auto) 6.3 H C-Reactive Protein Stool Occult Blood Positive A Blood Type Antibody Screen Crossmatch 02/20/25 02/20/25 18:46 05:17 WBC RBC Hgb Hct MCV MCH MCHC RDW Plt Count MPV Neut % (Auto) Lymph % (Auto) Grainger % (Auto) Eos % (Auto) Baso % (Auto) Neut # (Auto) Lymph # (Auto) Grainger # (Auto) Eos # (Auto) Baso # (Auto) Abs Immat Gran (auto) Imm/Tot Granulo (auto) C-Reactive Protein 11.77 H Stool Occult Blood Blood Type A Positive Antibody Screen Negative Crossmatch See Detail Preliminary micro results at discharge 02/19/25 09:15 Lower Respiratory Culture - Preliminary Sputum - Expectorated Sputum 02/18/25 13:14 Blood Culture Result 2 - Preliminary Blood - Right Forearm 02/18/25 13:00 Blood Culture Result 1 - Preliminary Blood - Right Antecubital Discharge Plan Discharge Disposition: [facility] Hospital Condition: Fair
[2025-02-21] MEDS: 0.9 % SODIUM CHLORIDE 250 ML 10 ML IV (09:17)
[2025-02-21] MEDS: DILTIAZEM HCL 180 MG CAP.ER.24H PO (09:33)
[2025-02-21] MEDS: IPRATROPIUM/ALBUTEROL SULFATE 3 ML AMPUL.NEB IH (09:50)
--- NOTE | 2025-02-21 10:37 | PT.DAILY ---
Physical Therapy Daily Note PT Daily Note/Assess Start: 02/21/25 10:35 Freq: Status: Active Protocol: Document 02/21/25 10:35 [id number] (Rec: 02/21/25 10:37 [id number]) Visit Not Completed Visit Not Completed Visit Not Completed Nursing request to hold Due to: Other Reason Visit Per nursing, patient is being transferred out due to GI Not Completed bleed for testing and will not return to this hospital . Physical Therapy Daily Note/Assessment Time In/Time Out Time In 09:38 Time Out 09:41 GG. Functional Abilities and Goals-Complete for Swing Bed Patients Only [id number]. Self-Care [id number]. Mobility
--- NOTE | 2025-02-23 07:48 | CM.NOTE ---
Final culture and sensitivity received, pt was transferred to acute care hospital.
--- NOTE | 2025-02-23 09:17 | SWNOTE1 ---
KIMMY sent email to [facility] team and updated Giuliana that pt was transferred to [facility] on 02/21. SW notified for continuation of care.
== END 2025-02-21 11:05 | disposition short-term general hospital (02) | DRG 871 ==
LOC: ER 14:43 → MS 16:13
PROVIDERS: Admitting Provider Internal Medicine; Emergency Provider Emergency Medicine; PCP Family Medicine; Visit Provider Internal Medicine
DX: A40.9 Streptococcal sepsis, unspecified (principal); E43 Unspecified severe protein-calorie malnutrition; J18.9 Pneumonia, unspecified organism; J96.01 Acute respiratory failure with hypoxia; N17.9 Acute kidney failure, unspecified; J44.0 Chronic obstructive pulmonary disease with (acute) lower respiratory infection; J44.1 Chronic obstructive pulmonary disease with (acute) exacerbation; R64 Cachexia; K92.2 Gastrointestinal hemorrhage, unspecified; R62.7 Adult failure to thrive; D62 Acute posthemorrhagic anemia; R65.20 Severe sepsis without septic shock; Z87.891 Personal history of nicotine dependence; F32.A Depression, unspecified; L60.2 Onychogryphosis; B35.1 Tinea unguium; M62.59 Muscle wasting and atrophy, not elsewhere classified, multiple sites; I48.91 Unspecified atrial fibrillation; Z68.23 Body mass index [BMI] 23.0-23.9, adult
CPT/HCPCS: 36415; 36430; 51798; 71045; 71275; 74177; 80048; 80053; 81001; 83605; 83735; 84100; 84443; 84484; 85007; 85025; 85027; 86140; 86850; 86900; 86901; 86923; 87040; 87070; 87077; 87106; 87150; 87205; 87804; 87811; 93005; 93306; 94640; 94761; 96365; 96366; 96368; 96375; 97161; 99285; G0328; J0456; J0696; J1100; J1160; J1650; J2919; P9016; Q9967